=== PATIENT | female | born 1960 | race Caucasian/White ===

== ENCOUNTER 2020-01-20 10:15 | Outpatient (REF) | payer MEDICARE, MEDICAID, SELFPAY ==
--- NOTE | 2020-01-20 10:21 | US_ITS ---
EXAMINATION: US THYROID CLINICAL INFORMATION: Nontoxic multinodular goiter. COMPARISON: Ultrasound soft tissue head/neck thyroid dated 06/09/2018 and 05/20/2017. TECHNIQUE: Linear transducer cox-scale and color Doppler examination with attention to the region of the thyroid. FINDINGS: SIZE: Measurements of the thyroid lobes and nodules are given in sagittal, anteroposterior and transverse dimensions respectively. Right Thyroid Lobe: 5.0 x 1.9 x 1.5 cm, volume 7.4 mL. Previously 4.8 x 1.6 x 1.7 cm, volume 6.8 mL. Parenchyma: The gland echotexture is homogeneous. Thyroid vascularity is normal. Left Thyroid Lobe: 4.5 x 1.4 x 1.8 cm, volume 5.9 mL. Previously 4.7 x 1.5 x 1.8 cm, volume 6.6 mL. Parenchyma: The gland echotexture is homogeneous. Thyroid vascularity is normal. Isthmus: 0.3 cm in maximum AP dimension. Previously 0.3 cm. RIGHT THYROID LOBE: There are 4 nodules seen. 1. Location: Middle. Size: 1.2 x 0.9 x 1.2 cm. Previous: 1.2 x 0.8 x 1.1 cm. Nodule characteristics: Hypoechoic, smoothly marginated with intranodular flow.. 2. Location: Middle. Size: 0.6 x 0.5 x 0.6 cm. Previous: 0.8 x 0.4 x 0.7 cm. Nodule characteristics: Hypoechoic, smoothly marginated with intranodular flow. 3. Location: Middle. Size: 0.5 x 0.4 x 0.3 cm. Previous: None. Nodule characteristics: Hypoechoic, smoothly marginated with no intranodular flow. 4. Location: Inferior. Size: 0.5 x 0.4 x 0.4 cm. Previous: 1.0 x 0.5 x 0.7 cm. Nodule characteristics: Hypoechoic, smoothly marginated with no intranodular flow. ISTHMUS: No nodules. LEFT THYROID LOBE: There are 4 nodules seen. 1. Location: Superior. Size: 0.6 x 0.5 x 0.5 cm. Previous: 0.6 x 0.4 x 0.4 cm. Nodule characteristics: Hypoechoic, smoothly marginated with no intranodular flow. 2. Location: Middle. Size: 0.7 x 0.5 x 0.5 cm. Previous: None. Nodule characteristics: Hypoechoic, smoothly marginated with intranodular flow. 3. Location: Middle. Size: 0.6 x 0.3 x 0.4 cm. Previous: 0.6 x 0.4 x 0.6 cm. Nodule characteristics: Hypoechoic, smoothly marginated with no intranodular flow. 4. Location: Inferior. Size: 0.5 x 0.3 x 0.4 cm. Previous: 0.4 x 0.3 x 0.4 cm. Nodule characteristics: Hypoechoic, smoothly marginated with no intranodular flow. NODES: No lymphadenopathy is seen in the tissue surrounding the thyroid gland. US/US thyroid IMPRESSION: Multiple bilateral thyroid nodules. None of these nodules appear suspicious. No change in the size of the nodules. Continued ultrasound follow-up in 1 year is recommended
== END 2020-01-20 10:16 | disposition home or self-care (01) ==
LOC: HO.US 10:15
PROVIDERS: PCP Internal Medicine; Visit Provider Internal Medicine
DX: E04.2 Nontoxic multinodular goiter (principal)
CPT/HCPCS: 76536

== ENCOUNTER 2020-02-15 07:34 | Outpatient (REF) | payer MEDICARE, MEDICAID, SELFPAY ==
[2020-02-15 11:44] LABS: Blood Urea Nitrogen 18 mg/dL (9-16); Estimated Glomerular Filt Rate > 60
[2020-02-15 11:51] LABS: Cholesterol 235 mg/dL; HDL Cholesterol 44 mg/dL; LDL Cholesterol Calculated 168 mg/dl; Triglycerides 118 mg/dL
[2020-02-15 12:00] LABS: TSH reflex Free T4 1.74 mIU/mL (0.32-4.0)
== END 2020-02-15 07:35 | disposition home or self-care (01) ==
LOC: HO.HMGCLDS 07:34
PROVIDERS: PCP Internal Medicine; Visit Provider Urology
DX: E04.2 Nontoxic multinodular goiter (principal); E78.5 Hyperlipidemia, unspecified; J44.9 Chronic obstructive pulmonary disease, unspecified; Z00.00 Encounter for general adult medical examination without abnormal findings; N28.1 Cyst of kidney, acquired
CPT/HCPCS: 36415; 80061; 82565; 84443; 84520

== ENCOUNTER 2020-02-18 09:43 | Outpatient (REF) | payer MEDICARE, MEDICAID, SELFPAY ==
--- NOTE | 2020-02-18 09:46 | CT_ITS ---
EXAMINATION: CT ABDOMEN WITHOUT AND WITH CONTRAST CLINICAL INFORMATION: Cyst of the kidney COMPARISON: None TECHNIQUE: Contiguous axial thin section helical images of the abdomen were performed before and after the administration of oral contrast and 85 mL of Omnipaque 350 intravenous contrast. The data set was reformatted in the coronal and sagittal planes and reviewed on an independent workstation. This CT examination was performed using dose optimization techniques as appropriate, variously including the following: *Automated exposure control *Adjustment of mA and/or kV according to patient size (this includes techniques or standardized protocols for targeted exams where dose is matched to indication/reason for exam; i.e. extremities or head) *Use of iterative reconstruction technique DLP: 278 mGy-cm FINDINGS: LUNG BASES: Lung bases are expanded and clear. Heart size appears normal. There are bilateral breast prosthesis present. LIVER, GALLBLADDER, AND BILIARY TREE: The liver is normal size, shape and density. No focal lesion or intrahepatic ductal dilatation seen. PANCREAS: The pancreas is homogeneous in density without enlargement. The peripancreatic fat borders are preserved. SPLEEN: The spleen is normal size measuring 9.91 cm in length. ADRENAL GLANDS AND KIDNEYS: Bilateral adrenal glands are symmetrical and normal. Both kidneys are normal size, shape and position. There is a nonenhancing 2.2 cm cyst midpole left kidney. No radiopaque renal calculi or hydronephrosis seen. BOWEL LOOPS: There is scattered stool and gas seen throughout the colon without any significant distention. Small bowel loops are normal caliber. The appendix is normal. LYMPH NODES: Normal. VASCULAR: There is atherosclerotic calcification of abdominal aorta and common iliac vessels. No aneurysmal dilatation seen. BONES: Unremarkable. CT/CT abdomen wo/w con IMPRESSION: Benign simple cyst midpole left kidney. No radiopaque renal calculi or hydronephrosis. Rest of the CT abdomen is unremarkable.
[2020-02-18] MEDS: iohexoL 350 MG/ML 100 ML INFUS..BTL IV (10:27)
== END 2020-02-18 09:44 | disposition home or self-care (01) ==
LOC: HO.CT 09:43
PROVIDERS: PCP Internal Medicine; Visit Provider Urology
DX: N28.1 Cyst of kidney, acquired (principal)
CPT/HCPCS: 74170; Q9967

== ENCOUNTER 2020-03-21 07:41 | Outpatient (REF) | payer MEDICARE, MEDICAID, SELFPAY ==
[2020-03-21 11:26] LABS: Hematocrit 49.2 % (37-47); Hemoglobin 15.3 g/dl (12.0-16.0); Mean Corpuscular HGB Conc 31.1 g/dl (31.0-35.0); Mean Corpuscular Hemoglobin 30.4 pg (27.0-33.0); Mean Corpuscular Volume 97.6 fL (80-98); Mean Platelet Volume 10.4 fL (9.4-12.3); Platelet Count 322 X10*3/uL (160-400); Red Blood Count 5.04 X10*6/uL (4.20-5.50); Red Cell Distribution Width 13.2 % (11.0-16.0); White Blood Count 8.7 X10*3/uL (4.8-10.8)
[2020-03-21 12:10] LABS: Alanine Aminotransferase 19 U/L (0-31); Albumin Level 4.2 g/dL (3.5-5.0); Alkaline Phosphatase 112 U/L (39-117); Anion Gap 14 (12-20); Aspartate Amino Transferase 17 U/L (5-31); Bilirubin Total 0.4 mg/dL (0.0-1.0); Blood Urea Nitrogen 22 mg/dL (9-16); Carbon Dioxide 27 mmol/L (22-29); Chloride 106 mmol/L (96-108); Cholesterol 195 mg/dL; Estimated Glomerular Filt Rate 54; Glucose Fasting 183 mg/dL (60-99); HDL Cholesterol 39 mg/dL; Iron 67 mcg/dL (30-160); LDL Cholesterol Calculated 131 mg/dl; Percent Iron Saturation 22 % (15-50); Potassium 4.8 mmol/L (3.3-5.1); Sodium 142 mmol/L (135-145); Total Iron Binding Capacity 299 mcg/dL (228-428); Total Protein 6.9 g/dL (6.5-8.0); Triglycerides 128 mg/dL; Unsaturated Iron Binding 232 ug/dL
== END 2020-03-21 07:42 | disposition home or self-care (01) ==
LOC: HO.HMGCLDS 07:41
PROVIDERS: PCP Internal Medicine; Visit Provider Internal Medicine
DX: E78.5 Hyperlipidemia, unspecified (principal); J44.9 Chronic obstructive pulmonary disease, unspecified; R42 Dizziness and giddiness
CPT/HCPCS: 36415; 80053; 80061; 83540; 85027

== ENCOUNTER 2020-03-24 06:04 | Outpatient (REF) | payer MEDICARE, MEDICAID, SELFPAY ==
[2020-03-24 11:37] LABS: Estimated Average Glucose 117 mg/dL; Hemoglobin A1c % 5.7 %
[2020-03-24 11:55] LABS: Anion Gap 17 (12-20); Blood Urea Nitrogen 17 mg/dL (9-16); Calcium 9.3 mg/dL (8.4-10.2); Carbon Dioxide 24 mmol/L (22-29); Chloride 108 mmol/L (96-108); Estimated Glomerular Filt Rate > 60; Glucose Fasting 111 mg/dL (60-99); Potassium 4.7 mmol/L (3.3-5.1); Sodium 144 mmol/L (135-145)
== END 2020-03-24 06:05 | disposition home or self-care (01) ==
LOC: HO.HMGCLDS 06:04
PROVIDERS: PCP Internal Medicine; Visit Provider Internal Medicine
DX: R73.9 Hyperglycemia, unspecified (principal)
CPT/HCPCS: 36415; 80048; 83036

== ENCOUNTER 2020-05-19 07:15 | Outpatient (REF) | payer MEDICARE, MEDICAID, SELFPAY ==
--- NOTE | ~2020-05-19 | CT_ITS ---
EXAMINATION: CT CHEST SCREENING CLINICAL INFORMATION: Nicotine dependence, cigarettes. COMPARISON: CT chest 04/07/2019 TECHNIQUE: Multidetector volumetric CT imaging of the chest is performed without contrast using low dose technique. Additional 2D coronal and sagittal reformatted images and axial 3D maximum intensity projection (MIP) images are generated on the CT workstation. This CT examination was performed using dose optimization techniques as appropriate, variously including the following: *Automated exposure control *Adjustment of mA and/or kV according to patient size (this includes techniques or standardized protocols for targeted exams where dose is matched to indication/reason for exam; i.e. extremities or head) *Use of iterative reconstruction technique DLP: 44 mGy-cm FINDINGS: LUNGS: Diffuse emphysematous changes of both lungs with minimal apical parenchymal scarring and pleural thickening. There is small left apical 2.1 cm cyst. Again visualized is a small 1 to 2 minute calcified and noncalcified bilateral lung nodules, stable. No acute pneumonic consolidation seen. MEDIASTINUM: The heart size and great vessels are normal caliber. The thyroid lobes are symmetrical and normal. The central trachea and the bronchi are widely patent. No abnormal size mediastinal or hilar lymph nodes seen. There is no pleural effusion seen. PLEURA AND CHEST WALL: There is no pleural effusion. No pleural mass or thickening. There are bilateral breast prosthesis. AXILLA: No lymphadenopathy. UPPER ABDOMEN: Visualized liver, spleen, pancreas and bilateral adrenal glands are unremarkable. OSSEOUS STRUCTURES: Mild ventral spondylosis dorsal spine. CT/CT lung screening IMPRESSION: Stable bilateral calcified and noncalcified pulmonary nodules in the range of 1-2 mm. No new nodules seen to ASSESSMENT: Lung-RADS category 2: Benign RECOMMENDATION: Low-dose annual CT chest.
== END 2020-05-19 07:16 | disposition home or self-care (01) ==
LOC: HO.CT 07:15
PROVIDERS: PCP Internal Medicine; Visit Provider Surgery
DX: Z12.2 Encounter for screening for malignant neoplasm of respiratory organs (principal); F17.210 Nicotine dependence, cigarettes, uncomplicated
CPT/HCPCS: 71271

== ENCOUNTER 2020-07-21 06:03 | Outpatient (REF) | payer MEDICARE, MEDICAID, SELFPAY ==
[2020-07-21 11:28] LABS: Glucose Urine UA NEG (NEG); Leukocyte Esterase Urine NEG (NEG); Nitrite Urine NEG (NEG); PH 5.5 (5.0-8.0); Urine Blood NEG (NEG); Urine Ketones NEG (NEG); Urine Protein NEG (NEG-TRACE)
[2020-07-21 11:30] LABS: Appearance Urine CLEAR; Color Urine YELLOW
[2020-07-21 11:45] LABS: RBC Urine 0-2 /HPF (0); Squamous Epithelial Cell Urine 1+ /LPF; WBC Urine 0-2 /HPF (0-4)
[2020-07-21 12:15] LABS: TSH reflex Free T4 1.36 uIU/mL (0.32-4.0); Vitamin D 25-OH Total 21.9 ng/mL (>30)
[2020-07-21 12:21] LABS: Estimated Average Glucose 123 mg/dL; Hemoglobin A1c % 5.9 %
[2020-07-21 12:32] LABS: Alanine Aminotransferase 14 U/L (0-31); Albumin Level 4.1 g/dL (3.5-5.0); Alkaline Phosphatase 114 U/L (39-117); Anion Gap 13 (12-20); Aspartate Amino Transferase 17 U/L (5-31); Bilirubin Total 0.5 mg/dL (0.0-1.0); Blood Urea Nitrogen 16 mg/dL (9-16); Calcium 9.1 mg/dL (8.4-10.2); Carbon Dioxide 26 mmol/L (22-29); Chloride 108 mmol/L (96-108); Cholesterol 221 mg/dL; Estimated Glomerular Filt Rate > 60; Glucose Fasting 108 mg/dL (60-99); HDL Cholesterol 39 mg/dL; LDL Cholesterol Calculated 162 mg/dl; Potassium 5.1 mmol/L (3.3-5.1); Sodium 142 mmol/L (135-145); Total Protein 6.5 g/dL (6.5-8.0); Triglycerides 103 mg/dL
== END 2020-07-21 06:04 | disposition home or self-care (01) ==
LOC: HO.HMGCLDS 06:03
PROVIDERS: PCP Internal Medicine; Visit Provider Internal Medicine
DX: Z00.00 Encounter for general adult medical examination without abnormal findings (principal); E78.5 Hyperlipidemia, unspecified; J44.9 Chronic obstructive pulmonary disease, unspecified; R73.9 Hyperglycemia, unspecified; R91.8 Other nonspecific abnormal finding of lung field
CPT/HCPCS: 36415; 80053; 80061; 81001; 82306; 83036; 84443

== ENCOUNTER 2020-08-10 07:02 | Outpatient (REF) | payer MEDICARE, MEDICAID, SELFPAY ==
--- NOTE | ~2020-08-10 | XR_ITS ---
EXAMINATION: XR HIP, LEFT CLINICAL INFORMATION: Left hip pain. COMPARISON: None TECHNIQUE: Two views of the left hip. FINDINGS: Minimal bilateral hip degenerative joint changes are seen in the superior aspects of the joint spaces. There is no acute fracture or dislocation. The bony pelvis is intact. The soft tissues are unremarkable. XR/XR hip LT w PEL1V IMPRESSION: Minimal bilateral hip degenerative joint changes suggesting osteoarthritis.
== END 2020-08-10 07:03 | disposition home or self-care (01) ==
LOC: HO.XRAY 07:02
PROVIDERS: PCP Internal Medicine; Visit Provider Physician Assistant
DX: M70.62 Trochanteric bursitis, left hip (principal)
CPT/HCPCS: 20610; 73502; 99202; J1040

== ENCOUNTER 2020-09-22 06:50 | Outpatient (REF) | payer MEDICARE, MEDICAID, SELFPAY ==
[2020-09-22 12:11] LABS: Alanine Aminotransferase 16 U/L (0-31); Albumin Level 4.2 g/dL (3.5-5.0); Alkaline Phosphatase 105 U/L (39-117); Anion Gap 12 (12-20); Aspartate Amino Transferase 15 U/L (5-31); Bilirubin Total 0.3 mg/dL (0.0-1.0); Blood Urea Nitrogen 14 mg/dL (9-16); Calcium 9.9 mg/dL (8.4-10.2); Carbon Dioxide 28 mmol/L (22-29); Chloride 108 mmol/L (96-108); Cholesterol 219 mg/dL; Estimated Glomerular Filt Rate 54; Glucose Fasting 121 mg/dL (60-99); HDL Cholesterol 37 mg/dL; LDL Cholesterol Calculated 158 mg/dl; Potassium 5.6 mmol/L (3.3-5.1); Sodium 142 mmol/L (135-145); Total Protein 6.8 g/dL (6.5-8.0); Triglycerides 123 mg/dL
== END 2020-09-22 06:51 | disposition home or self-care (01) ==
LOC: HO.HMGCLDS 06:50
PROVIDERS: PCP Internal Medicine; Visit Provider Internal Medicine
DX: E78.5 Hyperlipidemia, unspecified (principal); R73.9 Hyperglycemia, unspecified
CPT/HCPCS: 36415; 80053; 80061

== ENCOUNTER 2020-09-29 06:22 | Outpatient (REF) | payer MEDICARE, MEDICAID, SELFPAY ==
[2020-09-29 12:21] LABS: Anion Gap 15 (12-20); Blood Urea Nitrogen 20 mg/dL (9-16); Calcium 9.8 mg/dL (8.4-10.2); Carbon Dioxide 25 mmol/L (22-29); Chloride 106 mmol/L (96-108); Estimated Glomerular Filt Rate 55; Glucose Random 118 mg/dL (60-115); Potassium 5.2 mmol/L (3.3-5.1); Sodium 141 mmol/L (135-145)
== END 2020-09-29 06:23 | disposition home or self-care (01) ==
LOC: HO.HMGCLDS 06:22
PROVIDERS: PCP Internal Medicine; Visit Provider Internal Medicine
DX: E87.5 Hyperkalemia (principal)
CPT/HCPCS: 36415; 80048

== ENCOUNTER 2021-01-10 06:56 | Outpatient (REF) | payer MEDICARE, MEDICAID, SELFPAY ==
[2021-01-10 11:23] LABS: Hematocrit 50.6 % (37.0-47.0); Mean Corpuscular HGB Conc 31.6 g/dl (31.0-35.0); Mean Corpuscular Hemoglobin 30.1 pg (27.0-33.0); Mean Corpuscular Volume 95.1 fL (80.0-98.0); Mean Platelet Volume 10.4 fL (9.4-12.3); Platelet Count 357 X10*3/uL (160-400); Red Blood Count 5.32 X10*6/uL (4.20-5.50); White Blood Count 8.3 X10*3/uL (4.8-10.8)
[2021-01-10 11:40] LABS: Estimated Average Glucose 117 mg/dL; Hemoglobin A1c % 5.7 %
[2021-01-10 12:08] LABS: Alanine Aminotransferase 21 U/L (0-31); Albumin Level 4.3 g/dL (3.5-5.0); Alkaline Phosphatase 107 U/L (39-117); Anion Gap 16 (12-20); Aspartate Amino Transferase 17 U/L (5-31); Bilirubin Total 0.4 mg/dL (0.0-1.0); Blood Urea Nitrogen 17 mg/dL (9-16); Calcium 10.1 mg/dL (8.4-10.2); Carbon Dioxide 24 mmol/L (22-29); Chloride 107 mmol/L (96-108); Cholesterol 248 mg/dL; Estimated Glomerular Filt Rate 54; Glucose Fasting 117 mg/dL (60-99); HDL Cholesterol 35 mg/dL; LDL Cholesterol Calculated 189 mg/dl; Potassium 5.8 mmol/L (3.3-5.1); Sodium 141 mmol/L (135-145); Total Protein 6.9 g/dL (6.5-8.0); Triglycerides 123 mg/dL
== END 2021-01-10 06:57 | disposition home or self-care (01) ==
LOC: HO.HMGCLDS 06:56
PROVIDERS: PCP Internal Medicine; Visit Provider Internal Medicine
DX: Z00.00 Encounter for general adult medical examination without abnormal findings (principal); R73.9 Hyperglycemia, unspecified
CPT/HCPCS: 36415; 80053; 80061; 83036; 85027

== ENCOUNTER 2021-01-12 09:08 | Outpatient (REF) | payer MEDICARE, MEDICAID, SELFPAY ==
[2021-01-12 12:17] LABS: Anion Gap 13 (12-20); Blood Urea Nitrogen 16 mg/dL (9-16); Calcium 9.9 mg/dL (8.4-10.2); Carbon Dioxide 26 mmol/L (22-29); Chloride 109 mmol/L (96-108); Estimated Glomerular Filt Rate 52; Glucose Random 127 mg/dL (60-115); Potassium 5.2 mmol/L (3.3-5.1); Sodium 143 mmol/L (135-145)
== END 2021-01-12 09:09 | disposition home or self-care (01) ==
LOC: HO.HMGCLDS 09:08
PROVIDERS: PCP Internal Medicine; Visit Provider Internal Medicine
DX: E87.5 Hyperkalemia (principal)
CPT/HCPCS: 36415; 80048

== ENCOUNTER 2021-01-19 07:58 | Outpatient (REF) | payer MEDICARE, MEDICAID, SELFPAY ==
[2021-01-19 12:15] LABS: Alanine Aminotransferase 17 U/L (0-31); Albumin Level 4.3 g/dL (3.5-5.0); Alkaline Phosphatase 114 U/L (39-117); Anion Gap 14 (12-20); Aspartate Amino Transferase 17 U/L (5-31); Bilirubin Total 0.8 mg/dL (0.0-1.0); Blood Urea Nitrogen 16 mg/dL (9-16); Carbon Dioxide 27 mmol/L (22-29); Chloride 106 mmol/L (96-108); Cholesterol 169 mg/dL; Estimated Glomerular Filt Rate 58; Glucose Fasting 118 mg/dL (60-99); HDL Cholesterol 35 mg/dL; LDL Cholesterol Calculated 115 mg/dl; Sodium 142 mmol/L (135-145); Total Protein 6.9 g/dL (6.5-8.0); Triglycerides 98 mg/dL
== END 2021-01-19 07:59 | disposition home or self-care (01) ==
LOC: HO.HMGCLDS 07:58
PROVIDERS: PCP Internal Medicine; Visit Provider Internal Medicine
DX: E78.5 Hyperlipidemia, unspecified (principal)
CPT/HCPCS: 36415; 80053; 80061

== ENCOUNTER 2021-05-18 09:20 | Outpatient (REF) | payer MEDICARE, MEDICAID, SELFPAY ==
[2021-05-18 12:15] LABS: Estimated Average Glucose 117 mg/dL; Hemoglobin A1c % 5.7 %
[2021-05-18 12:23] LABS: Alanine Aminotransferase 19 U/L (0-31); Albumin Level 4.3 g/dL (3.5-5.0); Alkaline Phosphatase 116 U/L (39-117); Anion Gap 11 (12-20); Aspartate Amino Transferase 16 U/L (5-31); Bilirubin Total 0.5 mg/dL (0.0-1.0); Blood Urea Nitrogen 19 mg/dL (9-16); Calcium 9.7 mg/dL (8.4-10.2); Carbon Dioxide 27 mmol/L (22-29); Chloride 108 mmol/L (96-108); Cholesterol 248 mg/dL; Estimated Glomerular Filt Rate 56; Glucose Fasting 111 mg/dL (60-99); HDL Cholesterol 43 mg/dL; LDL Cholesterol Calculated 185 mg/dl; Potassium 5.1 mmol/L (3.3-5.1); Sodium 141 mmol/L (135-145); Triglycerides 102 mg/dL
[2021-05-18 12:36] LABS: Creatinine Urine 137.07 mg/dL; Microalbum/Creatinine Ratio Ur 29.9 ug/mg cr
== END 2021-05-18 09:21 | disposition home or self-care (01) ==
LOC: HO.HMGCLDS 09:20
PROVIDERS: PCP Internal Medicine; Visit Provider Internal Medicine
DX: J44.9 Chronic obstructive pulmonary disease, unspecified (principal); R73.9 Hyperglycemia, unspecified; E78.5 Hyperlipidemia, unspecified
CPT/HCPCS: 36415; 80053; 80061; 82043; 82306; 83036; 87624; 88142

== ENCOUNTER 2021-05-18 09:42 | Outpatient (REF) | payer MEDICARE, MEDICAID, SELFPAY ==
[2021-05-23 16:32] LABS: HPV mRNA E6/E7 Not Detected (Not Detected)
== END 2021-05-18 09:43 | disposition home or self-care (01) ==
LOC: HO.LAB 09:42
PROVIDERS: Visit Provider Internal Medicine
DX: Z01.419 Encounter for gynecological examination (general) (routine) without abnormal findings (principal); Z11.51 Encounter for screening for human papillomavirus (HPV)
CPT/HCPCS: 87624; 88142

== ENCOUNTER 2021-05-25 08:44 | Outpatient (REF) | payer MEDICARE, MEDICAID, SELFPAY ==
--- NOTE | ~2021-05-25 | CT_ITS ---
EXAMINATION: CT CHEST SCREENING CLINICAL INFORMATION: Current smoker. 45 pack year history. COMPARISON: Previous chest CT most recent May 2020 TECHNIQUE: Multidetector volumetric CT imaging of the chest is performed without contrast using low dose technique. Additional 2D coronal and sagittal reformatted images and axial 3D maximum intensity projection (MIP) images are generated on the CT workstation. This CT examination was performed using dose optimization techniques as appropriate, variously including the following: *Automated exposure control *Adjustment of mA and/or kV according to patient size (this includes techniques or standardized protocols for targeted exams where dose is matched to indication/reason for exam; i.e. extremities or head) *Use of iterative reconstruction technique DLP: 45 mGy-cm FINDINGS: LUNGS: There is evidence of emphysema. There is mild biapical pleural and parenchymal scarring. There is a small area of bronchial wall soft tissue opacification in the right upper lobe that is new for example. Reconstructed image 52 series 9. The small calcified and noncalcified pulmonary nodules are otherwise stable. Largest pulmonary nodule is a 6 mm peripheral or subpleural left lower lobe nodule adjacent to the fissure probably representing a subpleural lymph node. No endobronchial or endotracheal lesion. MEDIASTINUM: Minimal coronary artery calcification. The mediastinum is otherwise normal. PLEURA: There is no pleural effusion. No pleural mass or thickening. AXILLA: No lymphadenopathy. There are bilateral breast implants. No chest wall mass or enlarged axillary lymph nodes. UPPER ABDOMEN: There is a 2 cm low-attenuation lesion in the upper pole of the left kidney probably representing a cyst that is partially visualized. OSSEOUS STRUCTURES: There are mild degenerative changes of the spine. CT/CT lung screening IMPRESSION: Emphysema. New small area of bronchial soft tissue opacification in the right upper lobe. Otherwise small bilateral pulmonary nodules are stable. ASSESSMENT: Lung-RADS category 2: Benign RECOMMENDATION: Annual low-dose chest CT follow-up recommended.
== END 2021-05-25 08:45 | disposition home or self-care (01) ==
LOC: HO.CT 08:44
PROVIDERS: Visit Provider Physician Assistant Medical
DX: Z12.2 Encounter for screening for malignant neoplasm of respiratory organs (principal); F17.210 Nicotine dependence, cigarettes, uncomplicated
CPT/HCPCS: 71271

== ENCOUNTER → 2021-10-19 08:47 | Outpatient (BNVA) | payer MEDICARE, MEDICAID, SELFPAY | PROVIDERS: PCP Internal Medicine; Referring Provider Internal Medicine; Visit Provider Nurse Practitioner | DX: Z01.818 Encounter for other preprocedural examination (principal); D12.6 Benign neoplasm of colon, unspecified; J44.9 Chronic obstructive pulmonary disease, unspecified | CPT/HCPCS: 99202 ==

== ENCOUNTER 2022-01-18 06:46 | Outpatient (REF) | payer MEDICARE, MEDICAID, SELFPAY ==
[2022-01-18 11:44] LABS: Hematocrit 48.4 % (37.0-47.0); Hemoglobin 15.7 g/dl (12.0-16.0); Mean Corpuscular HGB Conc 32.4 g/dl (31.0-35.0); Mean Corpuscular Hemoglobin 31.1 pg (27.0-33.0); Mean Corpuscular Volume 95.8 fL (80.0-98.0); Mean Platelet Volume 10.4 fL (9.4-12.3); Platelet Count 336 X10*3/uL (160-400); Red Blood Count 5.05 X10*6/uL (4.20-5.50); Red Cell Distribution Width 13.4 % (11.0-16.0); White Blood Count 9.2 X10*3/uL (4.8-10.8)
[2022-01-18 12:23] LABS: Creatinine Urine 100.73 mg/dL; Microalbum/Creatinine Ratio Ur 4.9 ug/mg cr
[2022-01-18 12:26] LABS: Estimated Average Glucose 123 mg/dL; Hemoglobin A1c % 5.9 %
[2022-01-18 13:29] LABS: Alanine Aminotransferase 17 U/L (0-31); Albumin Level 4.1 g/dL (3.5-5.0); Alkaline Phosphatase 102 U/L (39-117); Anion Gap 10 (12-20); Aspartate Amino Transferase 16 U/L (5-31); Bilirubin Total 0.6 mg/dL (0.0-1.0); Blood Urea Nitrogen 18 mg/dL (9-16); Calcium 9.4 mg/dL (8.4-10.2); Carbon Dioxide 27 mmol/L (22-29); Chloride 107 mmol/L (96-108); Cholesterol 226 mg/dL; Estimated Glomerular Filt Rate > 60; Glucose Fasting 134 mg/dL (60-99); HDL Cholesterol 35 mg/dL; LDL Cholesterol Calculated 167 mg/dl; Potassium 4.3 mmol/L (3.3-5.1); Sodium 140 mmol/L (135-145); TSH reflex Free T4 1.15 uIU/mL (0.32-4.0); Total Protein 6.4 g/dL (6.5-8.0); Triglycerides 124 mg/dL
== END 2022-01-18 06:47 | disposition home or self-care (01) ==
LOC: HO.HMGCLDS 06:46
PROVIDERS: PCP Internal Medicine; Visit Provider Internal Medicine
DX: E04.2 Nontoxic multinodular goiter (principal); R73.9 Hyperglycemia, unspecified; E78.5 Hyperlipidemia, unspecified; J44.9 Chronic obstructive pulmonary disease, unspecified
CPT/HCPCS: 36415; 80053; 80061; 82043; 83036; 84443; 85027

== ENCOUNTER 2022-02-07 07:51 | Outpatient (REF) | payer MEDICARE, MEDICAID, SELFPAY ==
--- NOTE | ~2022-02-07 | XR_ITS ---
EXAMINATION: XR LUMBOSACRAL SPINE CLINICAL INFORMATION: Low back pain. COMPARISON: None TECHNIQUE: Three views of the lumbosacral spine. FINDINGS: There is normal lumbar lordosis. The vertebral heights, alignment and disc heights are normal. No visible acute fracture, dislocation or subluxation seen. XR/XR lumbar spine 2-3V IMPRESSION: Unremarkable lumbar spine examination.
== END 2022-02-07 07:52 | disposition home or self-care (01) ==
LOC: HO.HMGCX 07:51
PROVIDERS: PCP Internal Medicine; Visit Provider Internal Medicine
DX: M54.50 Low back pain, unspecified (principal)
CPT/HCPCS: 72100

== ENCOUNTER 2022-04-19 06:34 | Outpatient (REF) | payer MEDICARE, MEDICAID, SELFPAY ==
[2022-04-19 12:29] LABS: Alanine Aminotransferase 18 U/L (0-31); Albumin Level 4.1 g/dL (3.5-5.0); Alkaline Phosphatase 104 U/L (39-117); Anion Gap 12 (12-20); Aspartate Amino Transferase 19 U/L (5-31); Bilirubin Total 0.6 mg/dL (0.0-1.0); Blood Urea Nitrogen 14 mg/dL (9-16); Calcium 9.7 mg/dL (8.4-10.2); Carbon Dioxide 29 mmol/L (22-29); Chloride 106 mmol/L (96-108); Cholesterol 187 mg/dL; Estimated Glomerular Filt Rate 59; Glucose Fasting 136 mg/dL (60-99); HDL Cholesterol 39 mg/dL; LDL Cholesterol Calculated 127 mg/dl; Potassium 4.5 mmol/L (3.3-5.1); Sodium 142 mmol/L (135-145); Total Protein 6.4 g/dL (6.5-8.0); Triglycerides 106 mg/dL
[2022-04-19 12:34] LABS: Estimated Average Glucose 120 mg/dL; Hemoglobin A1c % 5.8 %
[2022-04-19 12:46] LABS: TSH reflex Free T4 1.57 uIU/mL (0.32-4.0)
[2022-04-19 13:15] LABS: Creatinine Urine 229.14 mg/dL; Microalbum/Creatinine Ratio Ur 741.4 ug/mg cr
== END 2022-04-19 06:35 | disposition home or self-care (01) ==
LOC: HO.HMGCLDS 06:34
PROVIDERS: PCP Internal Medicine; Visit Provider Internal Medicine
DX: Z00.00 Encounter for general adult medical examination without abnormal findings (principal); E78.5 Hyperlipidemia, unspecified; R73.9 Hyperglycemia, unspecified
CPT/HCPCS: 36415; 80053; 80061; 82043; 83036; 84443

== ENCOUNTER 2022-05-10 10:44 | Day surgery (SDC) | payer MEDICARE, MEDICAID, SELFPAY ==
[2022-05-07 11:08] VITALS: BMI 22.9
--- NOTE | 2022-05-09 12:37 | HO.ANESPROP2 ---
HPI - Anesthesia Eval Consult details Narrative: 61yo F for Colonoscopy PMFSH Active Problems Active Problems: All Active Problems (Updated 04/26/22 @ 09:27 by Callie Miner MD) Lumbar back pain (Acute) Pre-op examination (Acute) Tubular adenoma of colon (Acute) Annual physical exam (Acute) Grief (Acute) Hyperkalemia (Acute) Trochanteric bursitis, right hip (Acute) Depression (Acute) Hip bursitis, left (Acute) Bursitis (Acute) Upper respiratory infection (Acute) Hyperglycemia (Acute) Vertigo (Acute) Hyperlipidemia (Acute) COPD (chronic obstructive pulmonary disease) (Acute) Annual physical exam (Acute) Multiple thyroid nodules (Acute) Lung nodules (Acute) Normal Pap smear (Acute) Past Medical History Medical History Annual physical exam Annual physical exam Breast CA Bursitis COPD (chronic obstructive pulmonary disease) Depression Fibromyalgia Gallbladder polyp Grief Hip bursitis, left Hyperglycemia Hyperkalemia Hyperlipidemia Lung nodules Multiple thyroid nodules Normal Pap smear Osteopenia Vertigo Family History Family History Father HTN (hypertension) Diabetes mellitus Stroke Mother Breast cancer Brother Hyperlipidemia Maternal Aunt Breast cancer Sister Substance use disorder Mental health disorder Brother Pancreas cancer Brother Lung cancer Surgical History Surgical History History of colonoscopy History of mastectomy Social History Social History Housing: Apartment Alcohol intake: unknown Patient Tobacco Use Status: Current everyday Tobacco user Tobacco use type: Cigarette Cigarettes Per Day: 6 Years Smoked: 40 e-Cigarette/Vaping Use: Never Used Date Education Initiated: 05/10/22 Second Hand Smoke Exposure: No Use of substances other than those prescribed or required for medical reasons: No Are you DNR?: No Advance Directives: No Advance Directives Information Provided: Yes service: No Current occupational status: employed Current occupation: lt handed/dentist office Current occupational exposures/hazards: No Cognitive needs: No Hearing needs: No Vision needs: Yes Meds Allergies Allergy/AdvReac Type Severity Reaction Status Date / Time nicotine Allergy Unknown itching Verified 04/26/22 08:42 swelling of skin varenicline [From Chantix] Allergy Unknown increased Verified 04/26/22 08:42 irritability/ depression Exam Exam Date and Time: May 09, 2022 1237 Height,Weight and Vital Signs: Height 5 ft 5 in Weight 62.596 kg Pertinent Lab Results Pertinent Lab Results: Laboratory Tests 01/18/22 04/19/22 06:59 06:38 WBC 9.2 Hgb 15.7 Hct 48.4 H Plt Count 336 Sodium 142 Potassium 4.5 Chloride 106 Carbon Dioxide 29 BUN 14 Creatinine 0.96 Assessment and Plan Assessment Anesthesia Assessment: Chart Reviewed
[2022-05-10 11:01] VITALS: BP 146/64; PULSE 83; RESP 18; TEMP 36.8; O2SAT 100; BMI 22.8
--- NOTE | 2022-05-10 11:09 | MHC.SHP ---
Pre-Procedural Eval Section A Date of Service: 05/10/22 The patient is an INPATIENT: No The History & Physical has been completed within 30 days and I have reviewed it.: No Section B Chief Complaint: screening Details of Present Illness: colon cancer screening, history of colon polyps Relevant Family History (Specify if Yes): Yes Relevant Social History: Tobacco Use Present Medications: see Short Stay Collaborative assessment Medical History: Significant History (COPD High cholesterol Hyperglycemia Vertigo Thyroid nodules History of breast cancer Osteopenia Fibromyalgia syndrome Depression/anxiety) History of Previous Operations: Relevant previous surgery/procedure and date(s) (Double mastectomy Colonoscopy-2017 Rt inguinal hernia repair) Allergies: Allergies Allergy/AdvReac Type Severity Reaction Status Date / Time nicotine Allergy Unknown itching Verified 04/26/22 08:42 swelling of skin varenicline [From Chantix] Allergy Unknown increased Verified 04/26/22 08:42 irritability/ depression Review of Systems Sugical H&P ROS: Negative: Constitution, Cardiovascular, Respiratory and Gastrointestinal Exam Surgical H&P Exam: Normal: Heart, Normal: Lungs, Normal: Extremities and Normal: Abdomen Plan Diagnosis/Plan: Unchanged I have reviewed the history and physical and performed a pertinent physical examination on my patient. No changes have occurred unless specified. Time Spent With Patient Time: Total time managing care of this patient today ____ minutes.
[2022-05-10] MEDS: Lactated Ringers 1,000 ML 100 ML IVCONT (11:31)
--- NOTE | 2022-05-10 12:16 | W.PM.OPN ---
Operative Note Operative Note Date of Service: 05/10/22 Narrative: COLONOSCOPY TILL CECUM WITH BIOPSIES Indication:? Colon cancer screening Endoscopist:? Ross Moe MD Anesthesia Provider:?Dr Farah Anesthesia type:?MAC Consent: Indications for the procedure and potential complications of bleeding, perforation, reaction to medications and missed diagnosis were discussed with the patient and informed consent was obtained. Instrument: Olympus PCF H 190 L variable stiffness pediatric colonoscope Monitoring: Vital signs and clinical assessment, intermittent blood pressure monitoring, continuous EKG monitoring, Pulse oximetry and Carbon Dioxide monitoring were done throughout the procedure. Please see anesthesia flowsheet. Colon withdrawl time was 14 minutes. Procedure: The patient was placed in the left lateral decubitis position and pre-procedure medications were administered. After a digital rectal examination of the ano-rectum, the video colonoscope was inserted into the rectum and advanced through the colon to the cecum. The colonoscope was slowly withdrawn in a retrograde panoramic fashion and the colon mucosa was carefully examined including a retroflexed view of the rectum. Findings and interventions are described below. Procedure Difficulty: Without difficulty - colon was long and tortuous and there was some loop formation. Findings: Terminal Ileum: Not evaluated Cecum: Normal Ascending Colon: A 3-4 mm sessile polyp - removed with a cold biopsy Transverse Colon: Normal Descending Colon: Normal Sigmoid Colon: A 4 - 5 mm sessile polyp - removed with a cold biopsy. Moderate diverticulosis Rectum: Normal Ano-rectum: Moderate internal hemorrhoids Colon preparation: Excellent Impression and Post Procedure Diagnosis: Colonoscopy Findings: Two small polyps removed Moderate diverticulosis seen in the sigmoid colon Moderate hemorrhoids on retroflexed exam. Plan: Await pathology results Patient has an appointment on 05/24/22 in the [facility] with Sophia Edmondson NP. Repeat Colonoscopy interval based on path results - in 5 years if polyps are adenomatous and 10 years if polyps are hyperplastic (adult colonoscope for future colonoscopies). Above findings were reviewed with the patient and colon polyps and diverticulosis handouts were given in the discharge area
[2022-05-10 12:57] VITALS: BP 102/42; PULSE 74; RESP 16; TEMP 36.7; O2SAT 98
[2022-05-10 13:12] VITALS: BP 131/60; PULSE 66; RESP 16; TEMP 36.7; O2SAT 100
== END 2022-05-10 13:37 | disposition home or self-care (01) ==
PROVIDERS: PCP Internal Medicine; Visit Provider Internal Medicine Gastroenterology
PROC: 0DJD8ZZ Inspection of Lower Intestinal Tract, Via Natural or Artificial Opening Endoscopic (ICD-10-PCS; CPT 45378; principal; 2022-05-10 12:00)
DX: Z12.11 Encounter for screening for malignant neoplasm of colon (principal); Z86.010 Personal history of colon polyps; D12.3 Benign neoplasm of transverse colon; K63.5 Polyp of colon; K57.30 Diverticulosis of large intestine without perforation or abscess without bleeding; K64.8 Other hemorrhoids; J44.9 Chronic obstructive pulmonary disease, unspecified; E78.00 Pure hypercholesterolemia, unspecified; R73.9 Hyperglycemia, unspecified; R42 Dizziness and giddiness; E04.2 Nontoxic multinodular goiter; M79.7 Fibromyalgia; M85.80 Other specified disorders of bone density and structure, unspecified site; F41.8 Other specified anxiety disorders; Z79.899 Other long term (current) drug therapy; Z88.8 Allergy status to other drugs, medicaments and biological substances; Z85.3 Personal history of malignant neoplasm of breast; Z90.13 Acquired absence of bilateral breasts and nipples; F17.210 Nicotine dependence, cigarettes, uncomplicated
CPT/HCPCS: 45380; 88305

== ENCOUNTER 2022-06-07 08:21 | Outpatient (REF) | payer MEDICARE, MEDICAID, SELFPAY ==
--- NOTE | ~2022-06-07 | CT_ITS ---
EXAMINATION: CT CHEST SCREENING CLINICAL INFORMATION: Nicotine dependence. COMPARISON: Lung screening 05/25/2021. TECHNIQUE: Multidetector volumetric CT imaging of the chest is performed without contrast using low dose technique. Additional 2D coronal and sagittal reformatted images and axial 3D maximum intensity projection (MIP) images are generated on the CT workstation. This CT examination was performed using dose optimization techniques as appropriate, variously including the following: *Automated exposure control *Adjustment of mA and/or kV according to patient size (this includes techniques or standardized protocols for targeted exams where dose is matched to indication/reason for exam; i.e. extremities or head) *Use of iterative reconstruction technique DLP: 46 mGy-cm FINDINGS: LUNGS: There is mild centrilobular emphysema with no acute pneumonic consolidation. There are a few scattered tiny calcified and noncalcified pulmonary nodules which are stable. There is a 7 mm noncalcified nodule left lower lobe adjacent to major fissure on axial image 276/6. There is minimal bilateral apical scarring and thickening. Mild thickening of peribronchial wall right upper lobe axial image 50/9 is stable. MEDIASTINUM: The thyroid lobes are symmetric and normal. The central trachea and bronchi are widely patent. Heart size and the great vessels are normal caliber. There are small shotty lymph nodes in the mediastinum. No pericardial effusion. CORONARY ARTERY CALCIFICATION: None visualized on this study. PLEURA: There is minimal bilateral apical pleural thickening. No pleural effusion or calcified pleural plaque seen. AXILLA: No abnormal axillary lymph node seen. There are bilateral augmented breasts. UPPER ABDOMEN: Visualized liver, spleen, pancreas and bilateral adrenal glands are unremarkable. A 3 cm simple cyst visualized in midpole left kidney. OSSEOUS STRUCTURES: No aggressive lytic or sclerotic process seen. There is mild ventral spondylosis. CT/CT lung screening IMPRESSION: 1. Stable calcified and noncalcified pulmonary nodules. No new nodules seen. 2. Low-dose annual CT chest. ASSESSMENT: Lung-RADS category 2: Benign RECOMMENDATION: Low-dose annual CT chest
== END 2022-06-07 08:22 | disposition home or self-care (01) ==
LOC: HO.CT 08:21
PROVIDERS: PCP Internal Medicine; Visit Provider Physician Assistant Medical
DX: Z12.2 Encounter for screening for malignant neoplasm of respiratory organs (principal); F17.210 Nicotine dependence, cigarettes, uncomplicated
CPT/HCPCS: 71271

== ENCOUNTER 2023-05-08 11:12 | Outpatient (AMB) | payer OTHER, SELFPAY ==
--- NOTE | 2023-05-08 11:14 | MHC.OFFVIS ---
Intake Vital Signs 05/08/23 11:17 Height 5 ft 6 in Weight 132 lb 11.492 oz BMI 21.4 BP 144/66 H Blood Pressure Location Lt brachial Position Sitting Pulse 90 Intake Visit Reasons: Chronic Constipation Intake Note: Malgorzata returns to in office follow up with c/o abdominal pain. CC: Patient called yesterday requesting an appointment for abdominal pain and chronic constipation. She underwent colonoscopy with Dr. Moe on 04/2022. Patient states she has been having constipation since January, lower back pain, and lower abdominal pain. She reports taking a stool softener with laxative in it but continues having constipation and nausea. [employer] Required: No Accompanied by: Self / Same As Patient Allergies nicotine Allergy (Unknown, Verified 05/08/23 11:21) itching swelling of skin varenicline [From Chantix] Allergy (Unknown, Verified 05/08/23 11:21) increased irritability/ depression HPI Chronic Constipation HPI Details Assessment & Plan (1) Pre-op examination: ?Code(s): Z01.818 - Encounter for other preprocedural examination ?Plan: She tolerated past procedures well. No prior problems with anesthesia or sedation. Her COPD is well controlled and no cardiac problems. She recently lost 2 brothers, one to pancreatic cancer. one to lung cancer. No ID problems She had a TA on her last 2017 scope. (2) Tubular adenoma of colon: ?Comment: 2017 SCOPE REPEAT IN 5 YEARS ?Code(s): D12.6 - Benign neoplasm of colon, unspecified (3) COPD (chronic obstructive pulmonary disease): ?Comment: current smoker 1/2 PPD ?Code(s): J44.9 - Chronic obstructive pulmonary disease, unspecified ? ? ? Medications: New peg 3350-electroly carson 236-22.74-6.74 -5.86 gram (Golyt roxanne) ?? until feca l effluent is luisa r; do not exceed a total volume of 2 ,000 mL 240 mL? PO Q10M 1 day 4,000 mL 0RF Z12.11 - Encounter for screening for malignant neoplas m of colon COLONOSCOPY 05/10/22 Findings: Terminal Ileum: Not evaluated Cecum:? Normal Ascending Colon:? A 3-4 mm sessile polyp -? removed with a cold biopsy Transverse Colon:? Normal Descending Colon:? Normal Sigmoid Colon:? A 4 - 5 mm? sessile polyp -? removed with a cold biopsy.? Moderate diverticulosis Rectum:? Normal Ano-rectum:? Moderate internal hemorrhoids Colon preparation: Excellent ? Impression and Post Procedure Diagnosis: Colonoscopy Findings: Two small polyps removed Moderate diverticulosis seen in the sigmoid colon Moderate hemorrhoids on retroflexed exam. Plan: Await pathology results Patient has an appointment on 05/24/22 in the GI Clinic with? Sophia Edmondson NP. Repeat Colonoscopy interval based on path results - in 5 years if polyps are adenomatous and 10 years if polyps are hyperplastic (adult colonoscope for future colonoscopies). BIOPSY Received: 05/10/22 Diagnosis A.? Colon, ascending, polypectomy:? Scant superficial strip of colonic epithelium with hyperplastic changes. B.? Colon, transverse, polypectomy:? Tubular adenoma; negative for high-grade dysplasia or carcinoma. Laboratory Tests 04/19/22 06:38 Estimated GFR 59 Hemoglobin A1c % 5.8 Total Bilirubin 0.6 AST 19 ALT 18 Alkaline Phosphata se 104 TSH 1.57 TODAY'S VISIT She is agreeable to the 5 year repeat. The procedure was well tolerated. The results were explained and the patient is agreeable to the follow-up interval as stated. Education was provided to tell any 1st degree relatives about their findings to be sure that they are screened by age 45. Educated that they will be put on a recall list when it is time for their repeat scope but should they move out of state or away from the hospital they will need to remember along with their primary to repeat the procedure in a timely fashion to avoid any adverse complications. This is a patient that I have not seen since her pre colonoscopy visit who is here complaining of back pain and a new problem of chronic constipation. Onset some time after her colonoscopy of on and off CIC. She admits I like nuts and she is worried about TICS. Now she pushes and pushes and can't get it out. She drank a bottle of mag citrate, but then the next day she returned to severe CIC. She has been really bad with this since last month. She describes the pills otc and she was using a senna/colace combo. She has pain in her low back worse on the left side of the back over the hip. She was taking an OTC laxative and she had some relief after having more BM's. She describes the feeling as a pressure in the back and when she pushes it is in the area of the supra pubic area. The pain will be as bad as 10/10 at times when she is pushing but settles about 6/10. She has never had a problem like this before, she would have daily formed BM's. She denies any new medications, the only kyvn-nxk-[id number] she took was a probiotic/prebiotic in response to this problem which was not helpful. She has not had any major diet changes and no known sick contacts. I suggest she add a fiber supplement and I am going to give her a temporary supply of Linzess but 1st I want to get an abdominal x-ray so I can make sure it does not appear that she has any sort of small-bowel obstruction. She is agreeable to this. I think we also need to repeat her thyroid studies. I find this extremely puzzling it is possible that the prep upset her colon but I do not know why the problem would persist for such a long period of time. We know that she does not have any severe colon disease because we just did a colonoscopy, of differential diagnosis is extremely broad a potentially could include some sort of spinal problem as well as metabolic problem affecting the colon. She certainly does not have any medication side effects to consider. Return office visit in 3 weeks. [facility] Medical History Nicotine dependence, cigarettes, uncomplicated History of breast cancer (~2001) Grief Depression Hyperglycemia Multiple thyroid nodules Lung nodules Normal Pap smear Gallbladder polyp COPD (chronic obstructive pulmonary disease) Osteopenia (~2007) Fibromyalgia Hyperlipidemia Surgical History History of breast reconstruction S/P thyroid biopsy History of hemorrhoidectomy History of bilateral mastectomy History of colonoscopy Family History Father HTN (hypertension) Diabetes mellitus Stroke Mother Breast cancer Brother Hyperlipidemia Maternal Aunt Breast cancer Sister Substance use disorder Mental health disorder Brother Pancreas cancer Brother Lung cancer Social History Housing: Apartment Alcohol intake: unknown Patient Tobacco Use Status: Current everyday Tobacco user Tobacco use type: Cigarette Cigarettes Per Day: 6 Years Smoked: 40 e-Cigarette/Vaping Use: Never Used Second Hand Smoke Exposure: No service: No Current occupational status: employed Current occupation: lt handed/dentist office Current occupational exposures/hazards: No Cognitive needs: No Hearing needs: No Vision needs: Yes Review of Systems Const Denies fatigue, Denies fever(s), Denies night sweats, Denies poor appetite and Denies weight loss Eyes Details: glasses Reports requires corrective lenses ENT Reports Normal hearing present, Denies dental pain, Denies dysphagia, Denies hearing loss, Denies mouth pain, Denies odynophagia, Denies throat swelling, Denies tongue swelling and Reports other (Dentition adequate) Card Reports no additional complaints Resp Reports no additional complaints GI Details: Reports abdominal pain, Denies melena, Denies bloating, Denies hematochezia, Reports constipation, Denies GI cramping, Denies dysphagia, Denies excessive flatus, Denies early satiety, Denies heartburn, Denies diarrhea, Denies nausea, Denies odynophagia, Denies vomiting and Denies hematemesis Musc Reports back pain Skin/Breast Denies pruritus, Denies lesions, Denies rash and Denies jaundice Neuro Reports Normal hearing present and Denies Abnormal speech present Endo Denies fatigue Aller/Immun Denies throat swelling and Denies tongue swelling Physical Exam Vital Signs: Last Vital Signs Pulse 90 05/08/23 11:17 BP 144/66 H 05/08/23 11:17 BMI result Body Mass Index 21.4 Const General: cooperative, no acute distress, well developed and well groomed Nutritional Appearance: average body habitus and well nourished Orientation/consciousness: oriented to person, oriented to place and oriented to time Limitations: No language barrier HEENT Head: Yes normocephalic and Yes atraumatic Eyes General: appearance normal, both eyes and all related structures Pupils: Equal, round and reactive pupils present Neck Neck: Yes normal visual inspection and Yes no lymphadenopathy Thyroid: Thyroid normal Resp Effort & Inspection: normal respiratory effort and able to speak in complete sentences Auscultation: clear to auscultation bilaterally Cardio Rate: regular rate Rhythm: regular rhythm Heart sounds: Normal, physiologic split S2 sound present Peripheral pulses: radial pulses present and posterior tibial pulses present GI Inspection: No distended and No Abdominal panniculus present Palpation (GI): Soft to palpation, Tenderness to palpation present (GI) (Extremely mild) periumbilically, no guarding, not rigid and No hepatosplenomegaly present Percussion: Yes normal to percussion Auscultation: normal bowel sounds Rectal Exam - Female: deferred General: Yes no CVA tenderness Back/Spine/Pelvis Back: no CVA tenderness Thoracic/Lumbar Spine: thoracic and lumbar spine normal to inspection, No paraspinal muscle tenderness and No lumbar spinal tenderness Sacroiliac joints: bilaterally nontender Skin General skin exam: no rashes or lesions noted, turgor normal, skin not dry, no jaundice, No spider nevi and no striae Rashes: no rashes Nails: normal Neuro General: oriented to person, oriented to place and oriented to time Cranial nerves: Yes Equal, round and reactive pupils present and Yes Normal hearing present Speech: No Abnormal speech present Extrem General: Yes normal to inspection, No clubbing, No cyanosis and No edema Psych Appearance: grossly normal and well kempt Mental Status: mental status grossly normal Speech and movement: Normal speech and movement present Affect: normal affect Attitude: cooperative Thought process: Normal thought process present and not confabulating Thought content: Normal thought content present Insight: Fair insight present (Psych) and Limited insight present (Psych) Judgement: Fair judgement present (Psych) and Limited judgement present (Psych) Results Reviewed Results Reviewed: COLONOSCOPY 05/10/22 Findings: Terminal Ileum: Not evaluated Cecum:? Normal Ascending Colon:? A 3-4 mm sessile polyp -? removed with a cold biopsy Transverse Colon:? Normal Descending Colon:? Normal Sigmoid Colon:? A 4 - 5 mm? sessile polyp -? removed with a cold biopsy.? Moderate diverticulosis Rectum:? Normal Ano-rectum:? Moderate internal hemorrhoids Colon preparation: Excellent ? Impression and Post Procedure Diagnosis: Colonoscopy Findings: Two small polyps removed Moderate diverticulosis seen in the sigmoid colon Moderate hemorrhoids on retroflexed exam. Plan: Await pathology results Patient has an appointment on 05/24/22 in the GI Clinic with? Sophia Edmondson NP. Repeat Colonoscopy interval based on path results - in 5 years if polyps are adenomatous and 10 years if polyps are hyperplastic (adult colonoscope for future colonoscopies). BIOPSY Received: 05/10/22 Diagnosis A.? Colon, ascending, polypectomy:? Scant superficial strip of colonic epithelium with hyperplastic changes. B.? Colon, transverse, polypectomy:? Tubular adenoma; negative for high-grade dysplasia or carcinoma. Laboratory Tests 04/19/22 06:38 Estimated GFR 59 Hemoglobin A1c % 5.8 Total Bilirubin 0.6 AST 19 ALT 18 Alkaline Phosphatase 104 TSH 1.57 Assessment & Plan Assessment & Plan (1) Constipation: Code(s): K59.00 - Constipation, unspecified (2) Abdominal pain: Code(s): R10.9 - Unspecified abdominal pain Plan She is agreeable to the 5 year repeat. The procedure was well tolerated. The results were explained and the patient is agreeable to the follow-up interval as stated. Education was provided to tell any 1st degree relatives about their findings to be sure that they are screened by age 45. Educated that they will be put on a recall list when it is time for their repeat scope but should they move out of state or away from the hospital they will need to remember along with their primary to repeat the procedure in a timely fashion to avoid any adverse complications. This is a patient that I have not seen since her pre colonoscopy visit who is here complaining of back pain and a new problem of chronic constipation. Onset some time after her colonoscopy of on and off CIC. She admits I like nuts and she is worried about TICS. Now she pushes and pushes and can't get it out. She drank a bottle of mag citrate, but then the next day she returned to severe CIC. She has been really bad with this since last month. She describes the pills otc and she was using a senna/colace combo. She has pain in her low back worse on the left side of the back over the hip. She was taking an OTC laxative and she had some relief after having more BM's. She describes the feeling as a pressure in the back and when she pushes it is in the area of the supra pubic area. The pain will be as bad as 10/10 at times when she is pushing but settles about 6/10. She has never had a problem like this before, she would have daily formed BM's. She denies any new medications, the only acia-gqa-fknoxpr she took was a probiotic/prebiotic in response to this problem which was not helpful. She has not had any major diet changes and no known sick contacts. I suggest she add a fiber supplement and I am going to give her a temporary supply of Linzess but 1st I want to get an abdominal x-ray so I can make sure it does not appear that she has any sort of small-bowel obstruction. She is agreeable to this. I think we also need to repeat her thyroid studies. I find this extremely puzzling it is possible that the prep upset her colon but I do not know why the problem would persist for such a long period of time. We know that she does not have any severe colon disease because we just did a colonoscopy, of differential diagnosis is extremely broad a potentially could include some sort of spinal problem as well as metabolic problem affecting the colon. She certainly does not have any medication side effects to consider. Return office visit in 3 weeks. Orders: Orders Complete Blood Count Auto Diff Today K59.00 - Constipation, unspecified, R10.9 - Unspecified abdominal pain XR abdomen w decubitus Today K59.00 - Constipation, unspecified, R10.9 - Unspecified abdominal pain TSH reflex Free T4 Today K59.00 - Constipation, unspecified, R10.9 - Unspecified abdominal pain Medications: New linaclotide (Linzess) Take first thing in the morning with a full glass of water. 145 mcg PO QAM 30 caps 3RF K58.1 - Irritable bowel syndrome with constipation Coding Level of Care Code Est Pt Level 4 (39253) Diagnoses Constipation K59.00 Abdominal pain R10.9
[2023-05-08 11:17] VITALS: BP 144/66; PULSE 90; BMI 21.4
== END 2023-05-08 11:58 | disposition home or self-care (01) ==
PROVIDERS: PCP Internal Medicine; Visit Provider Nurse Practitioner
DX: K59.00 Constipation, unspecified (principal); R10.9 Unspecified abdominal pain
CPT/HCPCS: 99214

== ENCOUNTER 2023-05-08 11:12 | Outpatient (REF) | payer OTHER, SELFPAY ==
--- NOTE | ~2023-05-08 | XR_ITS ---
EXAMINATION: XR ABDOMEN WITH DECUBITUS VIEWS CLINICAL INDICATION: Abdominal pain COMPARISON: None available. TECHNIQUE: AP and supine views of the abdomen FINDINGS: The bowel pattern is nonspecific. Solid visceral outlines poorly seen. No abnormal calcifications identified. Hyperinflated but clear lungs. Thoracolumbar scoliosis. XR/XR abdomen w decubitus IMPRESSION: No radiographic evidence of bowel obstruction.
[2023-05-08 12:15] LABS: MANUAL DIFF FLAG NO
[2023-05-08 12:50] LABS: Basophils Percent Auto 0.3 % (0-2); Eosinophils Percent Auto 0.2 % (0-4); Hematocrit 48.4 % (37.0-47.0); Hemoglobin 15.9 g/dl (12.0-16.0); Imm Gran Abs Auto 0.04 X10*3/uL (0.00-0.03); Imm Gran Pct Auto 0.4 % (0.0-0.4); Lymphocytes Absolute Auto 3.9 X10*3/uL (1.2-4.9); Lymphocytes Percent Auto 36.7 % (20-40); Mean Corpuscular HGB Conc 32.9 g/dl (31.0-35.0); Mean Corpuscular Volume 94.3 fL (80.0-98.0); Mean Platelet Volume 9.8 fL (9.4-12.3); Monocytes Absolute Auto 0.6 X10*3/uL (0.1-1.2); Monocytes Percent Auto 5.6 % (2-11); Neutrophils Absolute Auto 6.1 x10*3/uL (2.0-8.3); Neutrophils Percent Auto 56.8 % (45-73); Platelet Count 371 X10*3/uL (160-400); Red Blood Count 5.13 X10*6/uL (4.20-5.50); Red Cell Distribution Width 13.3 % (11.0-16.0); White Blood Count 10.7 X10*3/uL (4.8-10.8)
== END 2023-05-08 11:13 | disposition home or self-care (01) ==
LOC: HO.LAB 11:12
PROVIDERS: PCP Internal Medicine; Visit Provider Nurse Practitioner
DX: R10.9 Unspecified abdominal pain (principal); K58.1 Irritable bowel syndrome with constipation; K59.09 Other constipation; M54.50 Low back pain, unspecified; Z79.899 Other long term (current) drug therapy
CPT/HCPCS: 36415; 74021; 84443; 85025; 99212

== ENCOUNTER 2023-05-28 12:44 | Outpatient (REF) | payer OTHER, MEDICAID, SELFPAY ==
--- NOTE | ~2023-05-28 | CT_ITS ---
EXAMINATION: CT CHEST SCREENING CLINICAL INFORMATION: Nicotine dependence, cigarettes, uncomplicated. The patient is a current smoker with a 50 pack-year history of smoking. COMPARISON: CT chest 06/07/2022. X-ray chest 09/09/2015. TECHNIQUE: Multidetector volumetric CT imaging of the chest is performed without contrast using low dose technique. Additional 2D coronal and sagittal reformatted images and axial 3D maximum intensity projection (MIP) images are generated on the CT workstation. This CT examination was performed using dose optimization techniques as appropriate, variously including the following: *Automated exposure control *Adjustment of mA and/or kV according to patient size (this includes techniques or standardized protocols for targeted exams where dose is matched to indication/reason for exam; i.e. extremities or head) *Use of iterative reconstruction technique DLP: 56 mGy-cm FINDINGS: LUNGS: Severe emphysematous changes are present throughout the lungs along with mild peribronchial thickening. Again seen is a left lower lobe perifissural 8 x 3 mm presumed lymph node with a triangular/polygonal shape (4:383, compare to prior 6:275). No new or concerning lung nodules are seen. MEDIASTINUM: The mediastinum is normal. CORONARY ARTERY CALCIFICATION: None visualized on this study. PLEURA: There is no pleural effusion. No pleural mass or thickening. AXILLA/CHEST WALL: No lymphadenopathy. Bilateral breast prostheses are present. UPPER ABDOMEN: Unremarkable. OSSEOUS STRUCTURES: Unremarkable. CT/CT lung screening IMPRESSION: Unchanged left lower lobe perifissural lung nodule. No new or suspicious lung nodule to suggest malignancy. Severe emphysema. ASSESSMENT: Lung-RADS category 2: Benign RECOMMENDATION: Routine annual low-dose CT screening in 12 months.
== END 2023-05-28 12:45 | disposition home or self-care (01) ==
LOC: HO.CT 12:44
PROVIDERS: PCP Internal Medicine; Visit Provider Nurse Practitioner Family
DX: Z12.2 Encounter for screening for malignant neoplasm of respiratory organs (principal); F17.210 Nicotine dependence, cigarettes, uncomplicated
CPT/HCPCS: 71271

== ENCOUNTER 2023-06-05 07:45 | Outpatient (AMB) | payer OTHER, MEDICAID, SELFPAY ==
--- NOTE | 2023-06-05 08:02 | MHC.OFFVIS ---
Vital Signs 06/05/23 08:09 Height 5 ft 6 in Weight 132 lb BMI 21.3 BP 138/62 Blood Pressure Location Lt brachial Position Sitting Pulse 76 Intake Visit Reasons: 3 week f/u xray Intake Note: Patient 3 weeks for XRay results Patient denies any GI issues for today. Allergies nicotine Allergy (Unknown, Verified 06/05/23 08:08) itching swelling of skin varenicline [From Chantix] Allergy (Unknown, Verified 06/05/23 08:08) increased irritability/ depression HPI HPI 3 week f/u xray: Details: Assessment & Plan (1) Constipation: Code(s): K59.00 - Constipation, unspecified (2) Abdominal pain: Code(s): R10.9 - Unspecified abdominal pain Plan She is agreeable to the 5 year repeat. The procedure was well tolerated. The results were explained and the patient is agreeable to the follow-up interval as stated. Education was provided to tell any 1st degree relatives about their findings to be sure that they are screened by age 45. Educated that they will be put on a recall list when it is time for their repeat scope but should they move out of state or away from the hospital they will need to remember along with their primary to repeat the procedure in a timely fashion to avoid any adverse complications. This is a patient that I have not seen since her pre colonoscopy visit who is here complaining of back pain and a new problem of chronic constipation. Onset some time after her colonoscopy of on and off CIC. She admits I like nuts and she is worried about TICS. Now she pushes and pushes and can't get it out. She drank a bottle of mag citrate, but then the next day she returned to severe CIC. She has been really bad with this since last month. She describes the pills otc and she was using a senna/colace combo. She has pain in her low back worse on the left side of the back over the hip. She was taking an OTC laxative and she had some relief after having more BM's. She describes the feeling as a pressure in the back and when she pushes it is in the area of the supra pubic area. The pain will be as bad as 10/10 at times when she is pushing but settles about 6/10. She has never had a problem like this before, she would have daily formed BM's. She denies any new medications, the only [id number] she took was a probiotic/prebiotic in response to this problem which was not helpful. She has not had any major diet changes and no known sick contacts. I suggest she add a fiber supplement and I am going to give her a temporary supply of Linzess but 1st I want to get an abdominal x-ray so I can make sure it does not appear that she has any sort of small-bowel obstruction. She is agreeable to this. I think we also need to repeat her thyroid studies. I find this extremely puzzling it is possible that the prep upset her colon but I do not know why the problem would persist for such a long period of time. We know that she does not have any severe colon disease because we just did a colonoscopy, of differential diagnosis is extremely broad a potentially could include some sort of spinal problem as well as metabolic problem affecting the colon. She certainly does not have any medication side effects to consider. Return office visit in 3 weeks. Orders: Orders Complete Blood Count Auto Diff Today K59.00 - Constipation, unspecified, R10.9 - Unspecified abdominal pain XR abdomen w decubitus Today K59.00 - Constipation, unspecified, R10.9 - Unspecified abdominal pain TSH reflex Free T4 Today K59.00 - Constipation, unspecified, R10.9 - Unspecified abdominal pain Medications: New linaclotide (Linzess) Take first thing in the morning with a full glass of water. 145 mcg PO QAM 30 caps 3RF K58.1 - Irritable bowel syndrome with constipation LABS: Laboratory Tests 05/08/23 12:14 WBC 10.7 Hgb 15.9 Hct 48.4 H MCV 94.3 MCH 31.0 Plt Count 371 TSH 1.20 X-RAY OF THE ABDOMEN 05/09/23 FINDINGS: The bowel pattern is nonspecific. Solid visceral outlines poorly seen. No abnormal calcifications identified. Hyperinflated but clear lungs. Thoracolumbar scoliosis. XR/XR abdomen w decubitus IMPRESSION: No radiographic evidence of bowel obstruction. TODAY'S VISIT She has been taking her fiber ?almzv-yx-bls? supplement which may be a probiotic prebiotic and fiber supplement twice a day as directed. She finds that the Linzess at 145 micro g dose is moving her bowels well with mostly formed normal stools and only very occasional diarrhea after a formed stool. She feels happy with this and this has completely resolved the back pain she was contending with. She had some left lower quadrant pain initially when she started it, likely related to the stool burden, but this resolved later in the course. Return office visit in 6 months [facility] Medical History Nicotine dependence, cigarettes, uncomplicated History of breast cancer (~2001) Grief Depression Hyperglycemia Multiple thyroid nodules Lung nodules Normal Pap smear Gallbladder polyp COPD (chronic obstructive pulmonary disease) Osteopenia (~2007) Fibromyalgia Hyperlipidemia Surgical History History of breast reconstruction S/P thyroid biopsy History of hemorrhoidectomy History of bilateral mastectomy History of colonoscopy Family History Father HTN (hypertension) Diabetes mellitus Stroke Mother Breast cancer Brother Hyperlipidemia Maternal Aunt Breast cancer Sister Substance use disorder Mental health disorder Brother Pancreas cancer Brother Lung cancer Social History Housing: Apartment Alcohol intake: unknown Patient Tobacco Use Status: Current everyday Tobacco user Tobacco use type: Cigarette Cigarettes Per Day: 6 Years Smoked: 40 e-Cigarette/Vaping Use: Never Used Second Hand Smoke Exposure: No service: No Current occupational status: employed Current occupation: lt handed/dentist office Current occupational exposures/hazards: No Cognitive needs: No Hearing needs: No Vision needs: Yes Review of Systems Const Denies fatigue, Denies fever(s), Denies night sweats, Denies poor appetite and Denies weight loss ENT Reports Normal hearing present, Denies dental pain, Denies dysphagia, Denies hearing loss, Denies mouth pain, Denies odynophagia, Denies throat swelling, Denies tongue swelling and Reports other (Dentition adequate) Card Reports no additional complaints Resp Reports no additional complaints GI Details: Denies abdominal pain, Denies melena, Denies bloating, Denies hematochezia, Reports constipation, Denies GI cramping, Denies dysphagia, Denies excessive flatus, Denies early satiety, Denies heartburn, Denies diarrhea, Denies nausea, Denies odynophagia, Denies vomiting and Denies hematemesis Skin/Breast Denies pruritus, Denies lesions, Denies rash and Denies jaundice Neuro Reports Normal hearing present and Denies Abnormal speech present Endo Denies fatigue Aller/Immun Denies throat swelling and Denies tongue swelling Physical Exam Vital Signs: Last Vital Signs Pulse 76 06/05/23 08:09 BP 138/62 06/05/23 08:09 BMI result Body Mass Index 21.3 Const General: cooperative, no acute distress, well developed and well groomed Nutritional Appearance: average body habitus and well nourished Orientation/consciousness: oriented to person, oriented to place and oriented to time Limitations: No language barrier HEENT Head: Yes normocephalic and Yes atraumatic Eyes General: appearance normal, both eyes and all related structures Pupils: Equal, round and reactive pupils present Neck Neck: Yes normal visual inspection and Yes no lymphadenopathy Thyroid: Thyroid normal Resp Effort & Inspection: normal respiratory effort and able to speak in complete sentences Skin General skin exam: no rashes or lesions noted, turgor normal, skin not dry, no jaundice, No spider nevi and no striae Rashes: no rashes Nails: normal Neuro General: oriented to person, oriented to place and oriented to time Cranial nerves: Yes Equal, round and reactive pupils present and Yes Normal hearing present Speech: No Abnormal speech present Extrem General: Yes normal to inspection, No clubbing, No cyanosis and No edema Psych Appearance: grossly normal and well kempt Mental Status: mental status grossly normal Speech and movement: Normal speech and movement present Affect: normal affect Attitude: cooperative Thought process: Normal thought process present and not confabulating Thought content: Normal thought content present Insight: Good insight present (Psych) Judgement: Good judgement present (Psych) Results Reviewed Results Reviewed: Laboratory Tests 05/08/23 12:14 WBC 10.7 Hgb 15.9 Hct 48.4 H MCV 94.3 MCH 31.0 Plt Count 371 TSH 1.20 X-RAY OF THE ABDOMEN 05/09/23 FINDINGS: The bowel pattern is nonspecific. Solid visceral outlines poorly seen. No abnormal calcifications identified. Hyperinflated but clear lungs. Thoracolumbar scoliosis. XR/XR abdomen w decubitus IMPRESSION: No radiographic evidence of bowel obstruction. Assessment & Plan Assessment & Plan (1) Constipation: Code(s): K59.00 - Constipation, unspecified Category: Medical (2) Abdominal pain: Code(s): R10.9 - Unspecified abdominal pain Category: Medical Plan She has been taking her fiber ?mirrh-ku-ltl? supplement which may be a probiotic prebiotic and fiber supplement twice a day as directed. She finds that the Linzess at 145 micro g dose is moving her bowels well with mostly formed normal stools and only very occasional diarrhea after a formed stool. She feels happy with this and this has completely resolved the back pain she was contending with. She had some left lower quadrant pain initially when she started it, likely related to the stool burden, but this resolved later in the course. Return office visit in 6 months Coding Level of Care Code Est Pt Level 3 (84041) Diagnoses Constipation K59.00 Abdominal pain R10.9
[2023-06-05 08:09] VITALS: BP 138/62; PULSE 76; BMI 21.3
== END 2023-06-05 08:24 | disposition home or self-care (01) ==
PROVIDERS: PCP Internal Medicine; Visit Provider Nurse Practitioner
DX: K59.00 Constipation, unspecified (principal); R10.9 Unspecified abdominal pain
CPT/HCPCS: 99213

== ENCOUNTER → 2023-06-05 07:45 | Outpatient (BNVA) | payer OTHER, SELFPAY | PROVIDERS: PCP Internal Medicine; Visit Provider Nurse Practitioner ==

== ENCOUNTER 2023-12-05 09:17 | Outpatient (AMB) | payer OTHER, MEDICAID, SELFPAY ==
--- NOTE | 2023-12-05 09:19 | MHC.OFFVIS ---
Vital Signs 12/05/23 09:21 Height 5 ft 6 in Weight 127 lb 13.89 oz BMI 20.6 BP 131/60 Blood Pressure Location Lt brachial Position Sitting Pulse 80 Intake Visit Reasons: CIC 6 months follow up Intake Note: Malgorzata presents in the office as a 6 month follow up for CIC. CC: States that she is taking linzess and it is helping her constipation - does not have any concerns today. [employer] Worker Required: No Allergies nicotine Allergy (Unknown, Verified 12/05/23 09:21) itching swelling of skin varenicline [From Chantix] Allergy (Unknown, Verified 12/05/23 09:21) increased irritability/ depression Medication List - Last Reconciled 12/05/23 by WILFREDO Sow inulin (Prebiotic Fiber) grams PO linaclotide (Linzess) 72 mcg PO QAM linaclotide (Linzess) 145 mcg PO QAM sennosides-docusate sodium 8.6-50 mg (Colace 2-In-1) 1 tab-cap PO BEDTIME HPI HPI CIC 6 months follow up : Details: Assessment & Plan (1) Constipation: Code(s): K59.00 - Constipation, unspecified Category: Medical (2) Abdominal pain: Code(s): R10.9 - Unspecified abdominal pain Category: Medical Plan She has been taking her fiber ?zkonk-cx-crw? supplement which may be a probiotic prebiotic and fiber supplement twice a day as directed. She finds that the Linzess at 145 micro g dose is moving her bowels well with mostly formed normal stools and only very occasional diarrhea after a formed stool. She feels happy with this and this has completely resolved the back pain she was contending with. She had some left lower quadrant pain initially when she started it, likely related to the stool burden, but this resolved later in the course. Return office visit in 6 months TODAY'S VISIT This is a patient that I have not seen since her pre colonoscopy visit who is here complaining of back pain and a new problem of chronic constipation. She finds she has to skip Linzess every couple of days because she will have some solid stools mix with water at the 145 micro g dose. This is concerning because it takes about 3 hours to work and she does not want to be running to the bathroom when she is at her job. This is understandable. I am going to give her the 72 micro g dose to experiment with see if we can refine the treatment in make it fit her lifestyle better. If not she is perfectly advised that it is okay to titrate the 145 dose to her needs taking it every other day or taking it on a scheduled that works. Will give her access to the 72 micro g dose and she will call let me know which seems to work better for her. Her weight seems to be down for 5 lb and that is a surprise to her. She is eating well in fact she is quite hungry when she empties her bowels but she has had some extra stress at work. I advised her to simply keep an eye on this since she is feeling well otherwise and should it continue without explanation that it may need a deeper workup. Return office visit in 6 months or sooner if she has any concerns. [facility] Medical History Nicotine dependence, cigarettes, uncomplicated History of breast cancer (~2001) Grief Depression Hyperglycemia Multiple thyroid nodules Lung nodules Normal Pap smear Gallbladder polyp COPD (chronic obstructive pulmonary disease) Osteopenia (~2007) Fibromyalgia Hyperlipidemia Surgical History History of breast reconstruction S/P thyroid biopsy History of hemorrhoidectomy History of bilateral mastectomy History of colonoscopy Family History Father HTN (hypertension) Diabetes mellitus Stroke Mother Breast cancer Brother Hyperlipidemia Maternal Aunt Breast cancer Sister Substance use disorder Mental health disorder Brother Pancreas cancer Brother Lung cancer Social History Housing: Apartment Alcohol intake: unknown Patient Tobacco Use Status: Current everyday Tobacco user Tobacco use type: Cigarette Cigarettes Per Day: 6 Years Smoked: 40 e-Cigarette/Vaping Use: Never Used Second Hand Smoke Exposure: No service: No Current occupational status: employed Current occupation: lt handed/dentist office Current occupational exposures/hazards: No Cognitive needs: No Hearing needs: No Vision needs: Yes Review of Systems Const Denies fatigue, Denies fever(s), Denies night sweats, Denies poor appetite and Reports weight loss Eyes Details: glasses Reports requires corrective lenses ENT Reports Normal hearing present, Denies dental pain, Denies dysphagia, Denies hearing loss, Denies mouth pain, Denies odynophagia, Denies throat swelling, Denies tongue swelling and Reports other (Dentition adequate) Card Reports no additional complaints Resp Reports no additional complaints GI Details: Denies abdominal pain, Denies melena, Denies bloating, Denies hematochezia, Reports constipation, Denies GI cramping, Denies dysphagia, Denies excessive flatus, Denies early satiety, Denies heartburn, Denies diarrhea, Denies nausea, Denies odynophagia, Denies vomiting and Denies hematemesis Skin/Breast Denies pruritus, Denies lesions, Denies rash and Denies jaundice Neuro Reports Normal hearing present and Denies Abnormal speech present Psych Reports anxiety Endo Denies fatigue Aller/Immun Denies throat swelling and Denies tongue swelling Physical Exam Vital Signs: Last Vital Signs Pulse 80 12/05/23 09:21 BP 131/60 12/05/23 09:21 BMI result Body Mass Index 20.6 Const General: cooperative, no acute distress, well developed and well groomed Nutritional Appearance: average body habitus and well nourished Orientation/consciousness: oriented to person, oriented to place and oriented to time Limitations: No language barrier HEENT Head: Yes normocephalic and Yes atraumatic Eyes General: appearance normal, both eyes and all related structures Pupils: Equal, round and reactive pupils present Neck Neck: Yes normal visual inspection and Yes no lymphadenopathy Thyroid: Thyroid normal Resp Effort & Inspection: normal respiratory effort and able to speak in complete sentences Auscultation: clear to auscultation bilaterally Cardio Rate: regular rate Rhythm: regular rhythm Heart sounds: Normal, physiologic split S2 sound present Peripheral pulses: radial pulses present and posterior tibial pulses present GI Inspection: No distended and No Abdominal panniculus present Palpation (GI): Soft to palpation, nontender, no guarding, not rigid and No hepatosplenomegaly present Percussion: Yes normal to percussion Auscultation: normal bowel sounds Rectal Exam - Female: deferred Skin General skin exam: no rashes or lesions noted, turgor normal, skin not dry, no jaundice, No spider nevi and no striae Rashes: no rashes Nails: normal Neuro General: oriented to person, oriented to place and oriented to time Cranial nerves: Yes Equal, round and reactive pupils present and Yes Normal hearing present Speech: No Abnormal speech present Extrem General: Yes normal to inspection, No clubbing, No cyanosis and No edema Psych Appearance: grossly normal and well kempt Mental Status: mental status grossly normal Speech and movement: Normal speech and movement present Affect: normal affect Attitude: cooperative Thought process: Normal thought process present and not confabulating Thought content: Normal thought content present Insight: Good insight present (Psych) Judgement: Good judgement present (Psych) Assessment & Plan Assessment & Plan (1) Constipation: Code(s): K59.00 - Constipation, unspecified Category: Medical (2) Abdominal pain: Code(s): R10.9 - Unspecified abdominal pain Category: Medical Plan This is a patient that I have not seen since her pre colonoscopy visit who is here complaining of back pain and a new problem of chronic constipation. She finds she has to skip Linzess every couple of days because she will have some solid stools mix with water at the 145 micro g dose. This is concerning because it takes about 3 hours to work and she does not want to be running to the bathroom when she is at her job. This is understandable. I am going to give her the 72 micro g dose to experiment with see if we can refine the treatment in make it fit her lifestyle better. If not she is perfectly advised that it is okay to titrate the 145 dose to her needs taking it every other day or taking it on a scheduled that works. Will give her access to the 72 micro g dose and she will call let me know which seems to work better for her. Her weight seems to be down for 5 lb and that is a surprise to her. She is eating well in fact she is quite hungry when she empties her bowels but she has had some extra stress at work. I advised her to simply keep an eye on this since she is feeling well otherwise and should it continue without explanation that it may need a deeper workup. Return office visit in 6 months or sooner if she has any concerns. Medications: New linaclotide (Linzess) 72 mcg PO QAM 30 caps 6RF K59.00 - Constipation, unspecified On Hold linaclotide Hold Comment: Doctor's Order 145 mcg PO QAM 30 caps 3RF K58.1 - Irritable bowel syndrome with constipation linaclotide (Linzess) Hold Comment: Doctor's Order 145 mcg PO QAM 30 caps 3RF K58.1 - Irritable bowel syndrome with constipation Coding Level of Care Code Est Pt Level 3 (73932) Diagnoses Constipation K59.00 Abdominal pain R10.9
[2023-12-05 09:21] VITALS: BP 131/60; PULSE 80; BMI 20.6
== END 2023-12-05 09:43 | disposition home or self-care (01) ==
PROVIDERS: Visit Provider Nurse Practitioner
DX: K59.00 Constipation, unspecified (principal); R10.9 Unspecified abdominal pain
CPT/HCPCS: 99213

== ENCOUNTER → 2023-12-05 09:17 | Outpatient (BNVA) | payer OTHER, MEDICAID, SELFPAY | PROVIDERS: PCP Internal Medicine; Visit Provider Nurse Practitioner ==

== ENCOUNTER 2024-06-02 07:41 | Outpatient (REF) | payer OTHER, MEDICAID, SELFPAY ==
--- NOTE | ~2024-06-02 | CT_ITS ---
CLINICAL HISTORY: F17.210 - Nicotine dependence, cigarettes, uncomplicated CT lung cancer screening (LDCT) Comparison: None Technique: Axial CT images of the chest using low-dose technique. Referring provider counseled the patient on shared decision-making for LDCT screening. Additional counseling was provided on smoking cessation. Effective radiation dose total: DLP 27.1 mGycm, CTDIvol 0.8 mGy. Findings: Lung: Severe centrilobular emphysema. 2 mm pulmonary nodule of the left upper lobe series 4, image 68. 6.7 mm para fissural nodule of the left lower lobe series 4, image 82. Coronary artery calcifications: None Limited upper abdomen: Unremarkable Other: None Impression: LungRADS 3 - Probably benign: Recommend low dose screening Chest CT in 6 months. ##L3# Category 1: Normal; continue annual screening Category 2: Benign appearance or behavior, continue annual screening Category 3: Probably benign, [address] recommended Category 4A: Suspicious, [address] recommended; may consider PET/CT Category 4B: Suspicious, Additional diagnostics and/or tissue sampling recommended Category 4X: Suspicious, Additional diagnostics and/or tissue sampling recommended Category 0: Recalls (incomplete screen due to Incomplete coverage, Noise, Respiratory motion, Expiration, Obscured by acute abnormality) This document has been electronically signed by: Mahin Saldana MD on 06/02/2024 13:09:40
--- OUTSIDE RECORDS SUMMARY | 2024-06-02 07:45 | XMS_ITS | Clinical Summary ---
Demographics Address [address] [phone] Home Phone Mobile Phone Email Address Preferred Language en Marital Status Zoroastrianism Affiliation Unknown Race White Ethnic Group Unknown Author Organization [address] Address [address] [place] [phone] Phone Care Team Providers Care Music Department Chair Name Role Phone Waylon Perez MD Primary Care Pr ovider Allergies No known active allergies Medications Linzess 72 mcg capsuleIndication s:Constipation, unspecified constipation type Take 1 capsule (72 mcg total) by mouth 1 (one) time each day in the morning. 12/05/19 24 Active rosuvastatin (CRESTOR) 10 mg tabletIndications :Mixed hyperlipidemia Take 1 tablet (10 mg total) by mouth 1 (one) time each day. 90 tablet 1 01/07/20 24 2024 Active albuterol HFA (ProAir HFA) 90 mcg/actuation inhalerIndication s:Other emphysema (CMS/HCC V24, CMS/HCC V28) Inhale 2 puffs by mouth every 4 (four) hours if needed for wheezing or shortness of breath. 18 g 1 04/17/19 25 2025 Active umeclidinium (INCRUSE ELLIPTA) 62.5 mcg/actuation inhalationIndicat ions:Other emphysema (CMS/HCC V24, CMS/HCC V28) Inhale 1 puff by mouth 1 (one) time each day. 1 each 6 04/17/19 25 Active cholecalciferol (VITAMIN D-3) 50 mcg (2,000 unit) tabletIndications :Vitamin D deficiency Take 1 tablet (2,000 Units total) by mouth 1 (one) time each day. 90 tablet 3 04/17/19 25 2025 Active fluticasone propionate (FLONASE) 50 mcg/actuation nasal sprayIndications: Acute rhinitis SHAKE GENTLY-USE 1 SPRAY INTO EACH NOSTRIL TWICE A DAY PRIME BEFORE 1ST USE & CLEAN TIP/REPLACE CAP AFTER 16 mL 1 05/20/19 Active umeclidinium (Incruse Ellipta) 62.5 mcg/actuation inhalation Inhale 1 puff by mouth 1 (one) time each day. 3 each 3 05/22/19 25 2025 Active albuterol HFA (PROAIR HFA ; PROVENTIL HFA ; VENTOLIN HFA) 90 mcg/actuation inhaler Inhale 2 puffs by mouth every 6 (six) hours if needed for wheezing or shortness of breath. 3 each 05/22/19 25 2025 Active ergocalciferol (VITAMIN D-2) 1,250 mcg (50,000 unit) capsuleIndication s:Vitamin D deficiency Take 1 capsule (50,000 Units total) by mouth 1 (one) time per week. 12 capsule 03/08/19 25 2024 fluticasone propionate (FLONASE) 50 mcg/actuation nasal sprayIndications: Acute rhinitis Administer 1 spray into each nostril 2 (two) times a day. Shake gently. Before first use, prime pump. After use, clean tip and replace cap. 16 g 04/17/19 25 2024 Discontinued benzonatate (TESSALON) 100 mg capsuleIndication s:Bronchitis Take 1 capsule (100 mg total) by mouth 3 (three) times a day if needed for cough. Do not crush or chew. 42 capsule 04/17/19 25 2024 Active Problems Problem Noted Date Diagnosed Date Vitamin D deficiency 03/08/2024 Assessment & Plan (04/16/2024 11:51 AM EST): Continue vitamin D 50,000 units weekly. She will return for repeat vitamin D When she has completed the supplement. Advised to start vitamin D 2000 units daily indefinitely after completing the high-dose therapy Orders: Vitamin D 25 hydroxy; Future cholecalciferol (VITAMIN D-3) 50 mcg (2,000 unit) tablet; Take 1 tablet (2,000 Units total) by mouth 1 (one) time each day. Constipation 12/26/2023 Assessment & Plan (04/16/2024 11:51 AM EST): Continue follow-up with [facility]. Has an appointment June 04. Continue Linzess as needed Assessment & Plan (12/26/2023 2:38 PM EST): Continue linzess prn and [facility] follow up History of right breast cancer 12/26/2023 Assessment & Plan (04/16/2024 11:51 AM EST): R breast cancer dx in 2001. She had chemotherapy and a double mastectomy. She has breast implants and reports no issues with them. No radiation of adjuvant chemotherapy Assessment & Plan (12/26/2023 2:38 PM EST): S/p Double mastectomy. She does not require any mammograms. Other emphysema (CMS/HCC V24, CMS/HCC V28) 12/25 Assessment & Plan (04/16/2024 11:51 AM EST): Her inhalers are resent Unclear why she couldn't get it from her pharmacy when they were initially sent in December. She will follow-up with pulmonology as scheduled for the initial visit in May Orders: albuterol HFA (ProAir HFA) 90 mcg/actuation inhaler; Inhale 2 puffs by mouth every 4 (four) hours if needed for wheezing or shortness of breath. umeclidinium (INCRUSE ELLIPTA) 62.5 mcg/actuation inhalation; Inhale 1 puff by mouth 1 (one) time each day. Assessment & Plan (12/26/2023 2:38 PM EST): Advised to start the Spiriva daily to prevent recurrent bronchitis. Medication is sent. She will use albuterol as needed. PFTs ordered and she is referred to pulmonology. Orders: tiotropium (Spiriva with HandiHaler) 18 mcg per inhalation capsule; Place 1 capsule (18 mcg total) into inhaler and inhale 1 (one) time each day. albuterol HFA (ProAir HFA) 90 mcg/actuation inhaler; Inhale 2 puffs by mouth every 4 (four) hours if needed for wheezing or shortness of breath. Pulmonary function testing: Spirometry, Spirometry with Bronchodilator Ambulatory referral to Pulmonology; Future Lung nodules 12/26/2023 Assessment & Plan (12/26/2023 2:38 PM EST): She will be due for low-dose CT in May of next year. Orders: CT Lung Screening; Future Mild depression 12/26/2023 Assessment & Plan (12/26/2023 2:38 PM EST): See HPI Mixed hyperlipidemia 12/26/2023 Assessment & Plan (04/16/2024 11:51 AM EST): Much improved Continue rosuvastatin 10 mg daily Assessment & Plan (12/26/2023 2:38 PM EST): See HPI. She would likely require Repatha but will obtain labs first. Orders: Comprehensive metabolic panel; Future Lipid panel with reflex to direct LDL; Future Hemoglobin A1c; Future Tobacco use disorder 12/26/2023 Assessment & Plan (04/16/2024 11:51 AM EST): She will continue to cut back on her smoking on her own. Has low-dose CT scheduled for lung cancer screening at [facility] on June 02 Assessment & Plan (12/26/2023 2:38 PM EST): Smoking cessation counseling provided. She is trying to quit on her own. Previously tried Chantix and nicotine patches. Hx of breast implants, bilateral 12/26/2023 Assessment & Plan (12/26/2023 2:38 PM EST): Reports no issues with the breast implants. Fibromyalgia 12/26/2023 Assessment & Plan (04/16/2024 11:51 AM EST): Continue sparing use of ibuprofen as needed for pain Assessment & Plan (12/26/2023 2:38 PM EST): Continue OTC ibuprofen PRN. She declines long-term medication management Orders: CBC and differential; Future Comprehensive metabolic panel; Future Encounters Date Type Department Care Team Description 05/21/2024 9:00 AM EDT Consult Pulmon[address] [phone] Sabine Chacko MD CARVER (dyspnea on exertion) (Primary Dx); Other emphysema (CMS/HCC V24, CMS/HCC V28); Lung nodules; Chronic obstructive pulmonary disease, unspecified COPD type (CMS/HCC V24, CMS/HCC V28); Family history of lung cancer 05/21/2024 8:00 AM EDT Procedure visit Pul[address] [phone] Giselle Zabala MD Other emphysema (CMS/HCC V24, CMS/HCC V28) (Primary Dx); CARVER (dyspnea on exertion) 05/21/[address] [phone] Sabine Chacko MD Medical records 04/16/2024 8:30 AM EST Office Visit Adult Medicine [address] [phone] Waylon Perez MD Mixed hyperlipidemia (Primary Dx); Other emphysema (CMS/HCC V24, CMS/HCC V28); Chronic idiopathic constipation; History of right breast cancer; Tobacco use disorder; Fibromyalgia; Vitamin D deficiency; Leukocytosis, unspecified type; Bronchitis; Acute rhinitis; Cervical cancer screening; Need for tetanus, diphtheria, and acellular pertussis (Tdap) vaccine 03/08/2024 Telephone Adult Medicine [address] [phone] Waylon Perez MD from Last 3 Months Immunizations Name Administration Dates Next Due Influenza Quadrivalent, 0.5m l, preservative free (Fluarix; FluLaval; Fluzone) ages 6mo and older (Afluria) 3yo and older 01/25/2022,01/03/2020,03/14/2017,2015 Influenza Quadrivalent, with preservative (Fluzone; Afluria) 6mo and older 12/16/2018 Influenza trivalent, MDCK, 0 .5mL, preservative free (Flucelvax) 6mo and older 12/26/2023 Influenza trivalent, with preservative (Fluzone; Afluria) 6mo and older 01/16/2015 Pneumococcal conjugate 20 va lent (Prevnar 20, PCV 20) 2mo and older 01/25/2022 Surgical History Surgery Date Site/Laterality Comments MASTECTOMY 02/10/2001 - 02/09/2002 Bilateral HERNIA REPAIR 02/10/1998 - 02/09/1999 Right femoral hernia ENDOMETRIAL ABLATION unsure if it was an ablation. Medical History Medical History Date Comments COPD (chronic obstructive pulmonary disease) (CM S/HCC V24, CMS/HCC V28) Varicella Emphysema of lung (CMS/HCC V24, CMS/HCC V28) Hypercholesteremia Depression Family History Medical History Relation Name Comments Pancreatic cancer Brother 1 Lung cancer Brother 2 Pneumonia Father tobacco use Father Breast cancer Mother Colon cancer Neg Hx Ovarian cancer Neg Hx Relation Name Status Comments Brother 1 Brother 2 Father Mother Social History Tobacco Use Types Packs/Day Years Used Date Smoking Tobacco: Every Day Cigarettes 0.5 51.3 Started: 1974 Smokeless Tobacco: Current Tobacco Cessation:Ready to Q uit: Not Asked; Counseling Given: Not Answered Alcohol Use Standard Drinks/Week Comments Not Currently 0 (1 standard drink = 0.6 oz pur e alcohol) Housing Instability Answer Date Recorde d Are you worried that in the next 2 months you may not have stable housing? No 04/09/2024 Food Access & Nutrition Answer Date Rec orded Do you have access to a vari ety of food including fruits and vegetables? Yes 04/09/2024 Access to Healthcare Answer Date Record ed Within the last 3 months, ho w many times did you visit the emergency department for your medical care? 0 04/09/2024 Health Literacy Answer Date Recorded How often do you need to hav e someone help you when you read instructions, pamphlets, or other written material from your doctor or pharmacy? Never 04/09/2024 Caregiver: How often do you need to have someone help you when you read instructions, pamphlets, or other written material from your doctor or pharmacy? Not on file 04/09/2024 Financial Risk Answer Date Recorded How hard is it for you to pa y for the very basics like food, housing, medical care, and air conditioning / heating? Not very hard 04/09/2024 Transportation Answer Date Recorded Has the lack of transportati on kept you from meetings, work, or from getting things needed for daily living? No Has the lack of transportati on kept you from medical appointments or from getting medications? No 04/09/2024 Social Isolation Answer Date Recorded How often do you feel lonely or isolated from th ose around you? Never 04/09/2024 Food Risk Answer Date Recorded Within the past 12 months we worried whether our food would run out before we got money to buy more. Never true 04/09/2024 Within the past 12 months th e food we bought just didn't last and we didn't have money to get more. Never true 04/09/2024 Dependent Care Answer Date Recorded Do you need help finding or paying for care for your loved ones. For example, child nutrition assistant or elderly care for an older adult? No 04/09/2024 Education Answer Date Recorded Do you think completing more education or training, like finishing a GED, going to college, or learning a trade, would be helpful for you? No 04/09/2024 Employment and Income Answer Date Recor ded During the last four weeks, have you been actively looking for work? No 04/09/2024 Living Situation Answer Date Recorded What is your living situation? 0 04/09/2024 Comments Unknown Sex and Gender Information Value Date Recorded Sex Assigned at Not on file Legal Sex Female 12:53 PM EDT Gender Identity Not on file Sexual Orientation Not on file Obstetrics History Para Term AB IAB SAB Ectopic Multiple Livin g Live Births 2 1 1 1 1 Date Outcome GA Total Labor Labor/2nd/3rd Weight Sex Type Anes PTL Franca A1 A5 Name Clin SAB Last Filed Vital Signs Vital Sign Reading Time Taken Comments Blood Pressure 132/67 04/16/2024 8:58 AM EST Pulse 86 04/16/2024 8:30 AM EST Temperature 36.4 ??C (97.6 ??F) 04/16/2024 8:30 AM ES T Respiratory Rate 14 04/16/2024 8:30 AM EST Oxygen Saturation 98% 04/16/2024 8:30 AM EST Inhaled Oxygen Concentration - - Weight 56.2 kg (124 lb) 04/16/2024 8:30 AM EST Height 170.2 cm (5' 7 ) 04/16/2024 8:30 AM EST Body Mass Index 19.42 04/16/2024 8:30 AM EST Plan of Treatment Upcoming Encounters Date Type Department Care Team (Late st Contact Info) Description 11/19/2024 8:00 AM EDT Office Visit Adult Medicine [facility] [address] [place] [phone] Waylon Perez MD [address] [place] [id number] 12/03/2024 8:30 AM EDT [facility] [address] [phone] Sabine Chacko MD [address] [phone] Health Maintenance Due Date Last Done Comments DTaP,Tdap,and Td Vaccines (1 - Tdap) 12/07/1978 Cervical Cancer Screening: Pap Smear 12/07/1980 Zoster Vaccines (1 of 2) 12/07/2009 RSV Immunization Adult Patients (1 - Risk 60-74 years 1-dose series) 2019 HIV Screening 11/29/2023 Lung Cancer Screening (Low Dose CT) 11/29/2023 Depression Screening 04/09/2025 04/09/2024 Social Influencers of Health Screening 04/09/2025 04/09/2024 Colorectal Cancer Screening: Colonoscopy 04/23/2027 Cholesterol Screening (Lipid Panel) 04/09/2029 04/09/2024, 12/30/2023 COVID-19 Vaccine Discontinued 08/19/2020, 07/29/2020 Pneumococcal Vaccine: 50+ Years Completed 01/25/2022 Pneumococcal Vaccine: Pediatrics (0 to 5 Years) and At-Risk Patients (6 to 64 Years) Completed 01/25/2022 Influenza Vaccine Completed 12/26/2023, , 01/03/2020, Additional history exists Hepatitis C Screening Completed 12/30/2023 HIB Vaccines Aged Out No longer eligi ble based on patient's age to complete this topic HPV Vaccines Aged Out No longer eligi ble based on patient's age to complete this topic Hepatitis A Vaccines Aged Out No long er eligible based on patient's age to complete this topic Hepatitis B Vaccines Aged Out No long er eligible based on patient's age to complete this topic IPV Vaccines Aged Out No longer eligi ble based on patient's age to complete this topic MMR Vaccines Aged Out No longer eligi ble based on patient's age to complete this topic Meningococcal ACWY Vaccine Aged Out N o longer eligible based on patient's age to complete this topic Meningococcal B Vaccine Aged Out No l onger eligible based on patient's age to complete this topic RSV Immunization Patients Under 20 months Aged Out No longer eligible based on patient's age to complete this topic Varicella Vaccines Aged Out No longer eligible based on patient's age to complete this topic Procedures Procedure Name Priority Date/Time Associated Diagnosis Comments PULMONARY FUNCTION TESTING Routine 05/21/2024 8:40 AM EDT CARVER (dyspnea on exertion) CBC WITH AUTO DIFFERENTIAL Routine 04/09/2024 7:42 AM EST Leukocytosis, unspecified type LIPID PANEL WITH REFLEX TO DIRECT LDL Routine 04/09/2024 7:42 AM EST Mixed hyperlipidemia COMPREHENSIVE METABOLIC PANEL Routine 04/09/2024 7:42 AM EST Mixed hyperlipidemia CBC AND DIFFERENTIAL Routine 04/09/2024 7:42 AM EST Leukocytosis, unspecified type CBC WITH AUTO DIFFERENTIAL Routine 03/05/2024 7:37 AM EST Polycythemia secondary to smoking VITAMIN D 25 HYDROXY Routine 03/05/2024 7:37 AM EST Elevated alkaline phosphatase level HEPATIC FUNCTION PANEL Routine 03/05/2024 7:37 AM EST Mixed hyperlipidemia CREATINE KINASE AND CKMB Routine 03/05/2024 7:37 AM EST Mixed hyperlipidemia CBC AND DIFFERENTIAL Routine 03/05/2024 7:37 AM EST Polycythemia secondary to smoking HEPATITIS C ANTIBODY Routine 12/30/2023 7:40 AM EST Need for hepatitis C screening test from Last 3 Months or Most Recently Relevant to Health Maintenance Results * Pulmonary function testing: Carbon Monoxide Diffusing Capacity, Nitrogen Wash Out, Spirometry with Bronchodilator, Vital Capacity Test (05/21/2024 8:40 AM EDT) Impressions Giselle Zabala MD - 05/21/2024 8:40 AM EDT DATE OF SERVICE: 05/21/24 SPIROMETRY: FEV1 is 90 % predicted and an FVC ??is 103 % predicted. The FEV1/FVC ratio is 87% of normal, no response to bronchodilators noted. LUNG VOLUMES: Total lung capacity (TLC): 119% predicted. Residual volume (RV): 132% predicted RV/TLC ratio is 105% of normal DIFFUSION CAPACITY: DLCO 51% predicted. DlCO/VA 50% of predicted COMPARISONS: INTERPRETATION: This pulmonary function test shows mild obstructive changes with portion decline with diffusion capacity. ??This suggests COPD or parenchymal lung disease. ??Please correlate clinically ??Giselle Zabala MD ?? Sabine Chacko MD PFT ORDERABLES Final Result * Lipid panel with reflex to direct LDL (04/09/2024 7:42 AM EST) Cholesterol 133 0 - 200 mg/dL LAB CHEMISTRY METHOD 04/09/2024 10:[address] [facility] Triglycerides 106 0 - 150 mg/dL LAB CHEMISTRY METHOD 04/09/2024 10:[address] [facility] HDL 42 >=40 mg/dL LAB CHEMISTRY METHOD 04/09/2024 10:[address] [facility] LDL Calculated 70 0 - 100 mg/dL LAB CHEMISTRY METHOD 04/09/2024 10:45 AM [facility] VLDL Cholesterol Kyle 21.2 mg/dL LAB CHEMISTRY METHOD 04/09/2024 10:[address] [facility] Non HDL Chol. (LDL+VLDL) 91 <145 mg/dL LAB CHEMISTRY METHOD 04/09/2024 10:[address] [facility] Chol/HDL Ratio 3.2 0.0 - 4.4 LAB CHEMISTRY METHOD 04/09/2024 10:45 AM [facility] Blood Venous blood specimen / Unknown Venipuncture / Unknown 04/09/2024 7:42 AM EST 04/09/2024 7:42 AM EST Waylon Perez MD LAB BLOOD ORDERA BLES Final Result [facility] [address] [place] [address], [place] [phone] * (ABNORMAL) CBC auto differential (04/09/2024 7:42 AM EST) Only the most recent of2 resultswithin the time period is included. WBC 12.0(H) 4.8 - 10.8 K/mcL LAB HEMETOLOGY METHOD 04/09/2024 10:24 AM [facility] RBC 5.10(H) 3.80 - 4.80 M/[facility] LAB HEMETOLOGY METHOD 04/09/2024 10:24 AM [facility] Hemoglobin 15.4 11.5 - 16.0 g/dL LAB HEMETOLOGY METHOD 04/09/2024 10:24 AM [facility] Hematocrit 49.6(H) 35.0 - 47.0 % LAB HEMETOLOGY METHOD 04/09/2024 10:24 AM [facility] MCV 97.1 79.0 - 98.0 FL LAB HEMETOLOGY METHOD 04/09/2024 10:24 AM [facility] MCH 30.1 27.0 - 32.0 pcg LAB HEMETOLOGY METHOD 04/09/2024 10:24 AM [facility] MCHC 31.0(L) 32.0 - 37.0 g/dL LAB HEMETOLOGY METHOD 04/09/2024 10:24 AM [facility] RDW 12.6 11.0 - 15.0 % LAB HEMETOLOGY METHOD 04/09/2024 10:24 AM [facility] Platelets 428(H) 130 - 400 K/mcL LAB HEMETOLOGY METHOD 04/09/2024 10:24 AM [facility] MPV 10.5 7.0 - 11.0 FL LAB HEMETOLOGY METHOD 04/09/2024 10:24 AM [facility] NRBC 0.0 <1.0 % LAB HEMETOLOGY METHOD 04/09/2024 10:24 AM [facility] NRBC Absolute 0.00 <0.10 K/mcL LAB HEMETOLOGY METHOD 04/09/2024 10:24 AM [facility] Neutrophils Relative 65.0 % LAB HEMETOLOGY METHOD 04/09/2024 10:24 AM [facility] Lymphocytes Relative 26.9 % LAB HEMETOLOGY METHOD 04/09/2024 10:24 AM [facility] Monocytes Relative 6.8 % LAB HEMETOLOGY METHOD 04/09/2024 10:24 AM [facility] Eosinophils Relative 0.7 % LAB HEMETOLOGY METHOD 04/09/2024 10:24 AM [facility] Basophils Relative 0.3 % LAB HEMETOLOGY METHOD 04/09/2024 10:[address] [facility] Immature Granulocytes Relative 0.3 % LAB HEMETOLOGY METHOD 04/09/2024 10:[address] [facility] Neutrophils Absolute 7.80(H) 1.50 - 7.00 K/mcL LAB HEMETOLOGY METHOD 04/09/2024 10:[address] [facility] Lymphocytes Absolute 3.23 1.00 - 5.00 K/mcL LAB HEMETOLOGY METHOD 04/09/2024 10:[address] [facility] Monocytes Absolute 0.82 0.20 - 1.00 K/mcL LAB HEMETOLOGY METHOD 04/09/2024 10:24 AM [facility] Eosinophils Absolute 0.08 0.00 - 0.50 K/mcL LAB HEMETOLOGY METHOD 04/09/2024 10:[address] [facility] Basophils Absolute 0.03 0.00 - 0.20 K/mcL LAB HEMETOLOGY METHOD 04/09/2024 10:[address] [facility] Immature Granulocytes Absolute 0.04(H) 0.00 - 0.03 K/mcL LAB HEMETOLOGY METHOD 04/09/2024 10:24 AM [facility] Blood Venous blood specimen / Unknown Venipuncture / Unknown 04/09/2024 7:42 AM EST 04/09/2024 7:42 AM EST us Waylon Perez MD LAB BLOOD ORDERA BLES Final Result [facility] [address] [place] [address], * (ABNORMAL) Comprehensive metabolic panel (04/09/2024 7:42 AM EST) [facility] Sodium 145 133 - 145 mmol/L LAB CHEMISTRY METHOD 04/09/2024 10:45 AM [facility] Potassium 5.1 3.5 - 5.5 mmol/L LAB CHEMISTRY METHOD 04/09/2024 10:45 AM [facility] Chloride 112(H) 96 - 110 mmol/L LAB CHEMISTRY METHOD 04/09/2024 10:45 AM [facility] CO2 25 21 - 32 mmol/L LAB CHEMISTRY METHOD 04/09/2024 10:45 AM [facility] Anion Gap 8 3 - 11 LAB CHEMISTRY METHOD 04/09/2024 10:45 AM [facility] Glucose 131(H) 70 - 100 mg/dL LAB CHEMISTRY METHOD 04/09/2024 10:45 AM [facility] BUN 15 5 - 25 mg/dL LAB CHEMISTRY METHOD 04/09/2024 10:45 AM [facility] Creatinine 1.01 0.50 - 1.10 mg/dL LAB CHEMISTRY METHOD 04/09/2024 10:45 AM [facility] eGFR 62 >=60 mL/min/1. 73m2 LAB CHEMISTRY METHOD 04/09/2024 10:45 AM [facility] Comment:Calculation based on the??Chronic Kidney Disease Epidemiology Collaboration (CKD-EPI) equation refit??without adjustment for race. BUN/Creatinine Ratio 14.9 LAB CHEMISTRY METHOD 04/09/2024 10:45 AM [facility] Calcium 9.8 8.5 - 10.5 mg/dL LAB CHEMISTRY METHOD 04/09/2024 10:45 AM [facility] AST (SGOT) 22 10 - 42 unit/L LAB CHEMISTRY METHOD 04/09/2024 10:45 AM [facility] ALT (SGPT) 24 10 - 60 unit/L LAB CHEMISTRY METHOD 04/09/2024 10:45 AM [facility] Alkaline Phosphatase 111 42 - 121 unit/L LAB CHEMISTRY METHOD 04/09/2024 10:45 AM [facility] Total Protein 7.3 6.0 - 8.0 g/dL LAB CHEMISTRY METHOD 04/09/2024 10:[address] [facility] Albumin 3.9 3.2 - 5.0 g/dL LAB CHEMISTRY METHOD 04/09/2024 10:[address] [facility] Total Bilirubin 0.7 0.0 - 1.4 mg/dL LAB CHEMISTRY METHOD 04/09/2024 10:[address] [facility] Blood Venous blood specimen / Unknown Venipuncture / Unknown 04/09/2024 7:42 AM EST 04/09/2024 7:42 AM EST Waylon Perez MD LAB BLOOD ORDERA BLES Final Result Performing Organization Address City/[facility]/ZIP Co de Phone Number [facility] [address] [place] [address], [place] [phone] * (ABNORMAL) Vitamin D 25 hydroxy (03/05/2024 7:37 AM EST) Vit D, 25-Hydroxy 15.2(L) 30.0 - 80.0 ng/mL LAB CHEMISTRY METHOD 03/05/2024 10:[address] [facility] Blood Venous blood specimen / Unknown Venipuncture / Unknown 03/05/2024 7:37 AM EST 03/05/2024 7:37 AM EST Waylon Perez MD LAB BLOOD ORDERA BLES Final Result [facility] [address] [place] [address], [place] [phone] * Creatine kinase and CKMB (03/05/2024 7:37 AM EST) Total CK 197 22 - 269 unit/L LAB CHEMISTRY METHOD 03/05/2024 10:[address] [facility] CK-MB 3.0 1.0 - 3.6 ng/mL LAB CHEMISTRY METHOD 03/05/2024 10:[address] [facility] CK-MB Index 0.0 0.0 - 5.0 LAB CHEMISTRY METHOD 03/05/2024 10:38 AM [facility] Blood Venous blood specimen / Unknown Venipuncture / Unknown 03/05/2024 7:37 AM EST 03/05/2024 7:37 AM EST Waylon Perez MD LAB BLOOD ORDERA BLES Final Result [facility] [address] [place] [address], [place] [phone] * (ABNORMAL) Hepatic function panel (03/05/2024 7:37 AM EST) Total Protein 7.2 6.0 - 8.0 g/dL LAB CHEMISTRY METHOD 03/05/2024 10:38 AM [facility] Albumin 4.0 3.2 - 5.0 g/dL LAB CHEMISTRY METHOD 03/05/2024 10:38 AM [facility] Total Bilirubin 0.4 0.0 - 1.4 mg/dL LAB CHEMISTRY METHOD 03/05/2024 10:38 AM [facility] Bilirubin, Direct <0.1 0.0 - 0.3 mg/dL LAB CHEMISTRY METHOD 03/05/2024 10:38 AM [facility] Bilirubin, Indirect LAB CHEMISTRY METHOD 03/05/2024 10:38 AM [facility] Comment:Unable to calculate Indirect Bilirubin. ALT (SGPT) 30 10 - 60 unit/L LAB CHEMISTRY METHOD 03/05/2024 10:38 AM [facility] AST (SGOT) 19 10 - 42 unit/L LAB CHEMISTRY METHOD 03/05/2024 10:[address] [facility] Alkaline Phosphatase 124(H) 42 - 121 unit/L LAB CHEMISTRY METHOD 03/05/2024 10:[address] [facility] Blood Venous blood specimen / Unknown Venipuncture / Unknown 03/05/2024 7:37 AM EST 03/05/2024 7:37 AM EST Waylon Perez MD LAB BLOOD ORDERA BLES Final Result [facility] [address] [place] [address], [place] [phone] * Hepatitis C antibody (12/30/2023 7:40 AM EST) [facility] Signature Hepatitis C Antibody Negative Negative LAB CHEMISTRY METHOD 12/30/2023 11:[address] [facility] Blood Venous blood specimen / Unknown Venipuncture / Unknown 12/30/2023 7:40 AM EST 12/30/2023 7:40 AM EST Waylon Perez MD LAB BLOOD ORDERA BLES Final Result Performing Organization Address City/[facility]/ZIP Co de Phone Number [facility] [address] [place] [address], [place] [phone] from Last 3 Months or Most Recently Relevant to Health Maintenance Insurance [address] [phone] [facility] MEDICAID - [place] Care Teams Music Department Chair Relationship Specialty Start Date End Date Waylon Perez MD [address] [place] [phone] PCP - General Internal Medicine 11/29/23
== END 2024-06-02 07:42 | disposition home or self-care (01) ==
LOC: HO.CT 07:41
PROVIDERS: PCP Internal Medicine; Visit Provider Physician Assistant Medical
DX: Z12.2 Encounter for screening for malignant neoplasm of respiratory organs (principal); F17.210 Nicotine dependence, cigarettes, uncomplicated
CPT/HCPCS: 71271

== ENCOUNTER → 2024-06-02 07:43 | Outpatient (BNV) | payer OTHER, MEDICAID, SELFPAY | PROVIDERS: PCP Internal Medicine; Visit Provider Nuclear Medicine | DX: F17.210 Nicotine dependence, cigarettes, uncomplicated (principal) | CPT/HCPCS: 71271 ==

== ENCOUNTER 2024-06-04 08:41 | Outpatient (AMB) | payer OTHER, MEDICAID, SELFPAY ==
--- OUTSIDE RECORDS SUMMARY | 2024-06-04 08:46 | XMS_ITS | Clinical Summary ---
Demographics Address [birth year] 02/[address] [address] Home Phone Mobile Phone Email Address Preferred Language en Marital Status Catholic Affiliation Unknown Race White Ethnic Group Unknown Author Organization [address] Address [address] [place] [phone] Phone Care Team Providers Care Animal Care Giver Name Role Phone Waylon Perez MD Primary [...] (04/16/2024 11:51 AM EST): Continue follow-up with [facility] [place]. Has an appointment June 04. Continue Linzess as needed Assessment & Plan (12/26/2023 2:38 PM EST): Continue linzess prn and [facility] [place] follow up History of right breast [...] CT scheduled for lung cancer screening at [facility] on June 02 Assessment & Plan [...] Team Description 05/21/2024 9:00 AM EDT Consult Pulmon[address] [phone] Sabine Chacko MD CARVER (dyspnea on exertion) (Primary Dx); Other emphysema (CMS/HCC V24, CMS/HCC V28); Lung nodules; Chronic obstructive pulmonary disease, unspecified COPD type (CMS/HCC V24, CMS/HCC V28); Family history of lung cancer 05/21/2024 8:00 AM EDT Procedure visit Pul[address] [phone] Giselle Zabala MD Other emphysema (CMS/HCC V24, CMS/HCC V28) (Primary Dx); CARVER (dyspnea on exertion) 05/21/[address] [phone] Sabine Chacko MD Medical records 04/16/2024 8:30 AM EST Office Visit Adult Medicine [address] [phone] Waylon Perez MD Mixed hyperlipidemia (Primary Dx); Other emphysema (CMS/HCC V24, CMS/HCC V28); Chronic idiopathic constipation; History of right breast cancer; Tobacco use disorder; Fibromyalgia; Vitamin D deficiency; Leukocytosis, unspecified type; Bronchitis; Acute rhinitis; Cervical cancer screening; Need for tetanus, diphtheria, and acellular pertussis (Tdap) vaccine 03/08/2024 Telephone Adult Medicine [address] [phone] Waylon Perez MD from Last 3 Months [...] care for your loved ones. For example, early childhood coordinator or elderly care for an older adult? [...] 8:00 AM EDT Office Visit Adult Medicine [facility] [address] [place] [phone] Waylon Perez MD [address] [place] [phone] 12/03/2024 8:30 AM EDT [facility] [address] [phone] Sabine Chacko MD [address] [address] Health Maintenance Due Date Last Done Comments [...] 04/09/2024 7:42 AM EST Leukocytosis, unspecified type HEPATITIS C ANTIBODY Routine 12/30/2023 7:40 AM [...] mg/dL LAB CHEMISTRY METHOD 04/09/2024 10:45 AM [facility] Triglycerides 106 0 - 150 mg/dL LAB CHEMISTRY METHOD 04/09/2024 10:45 AM [facility] HDL 42 >=40 mg/dL LAB CHEMISTRY METHOD 04/09/2024 10:45 AM [facility] LDL Calculated 70 0 - 100 mg/dL LAB CHEMISTRY METHOD 04/09/2024 10:45 AM [facility] VLDL Cholesterol Kyle 21.2 mg/dL LAB CHEMISTRY METHOD 04/09/2024 10:45 AM [facility] Non HDL Chol. (LDL+VLDL) 91 <145 mg/dL LAB CHEMISTRY METHOD 04/09/2024 10:45 AM [facility] Chol/HDL Ratio 3.2 0.0 - 4.4 LAB CHEMISTRY METHOD 04/09/2024 10:45 AM EST [facility] Blood Venous blood specimen / Unknown Venipuncture / Unknown 04/09/2024 7:42 AM EST 04/09/2024 7:42 AM EST Waylon Perez MD LAB BLOOD ORDERA BLES Final Result [facility] [address] [place] [address], [place] [phone] * (ABNORMAL) CBC auto differential (04/09/2024 7:42 AM EST) WBC 12.0(H) 4.8 - 10.8 K/mcL LAB HEMETOLOGY METHOD 04/09/2024 10:24 AM [facility] RBC 5.10(H) 3.80 - 4.80 M/[facility] LAB HEMETOLOGY METHOD 04/09/2024 10:24 AM [facility] Hemoglobin 15.4 11.5 - 16.0 g/dL LAB HEMETOLOGY METHOD 04/09/2024 10:24 AM [facility] Hematocrit 49.6(H) 35.0 - 47.0 % LAB HEMETOLOGY METHOD 04/09/2024 10:24 AM [facility] MCV 97.1 79.0 - 98.0 FL LAB HEMETOLOGY METHOD 04/09/2024 10:24 AM [facility] MCH 30.1 27.0 - 32.0 pcg LAB HEMETOLOGY METHOD 04/09/2024 10:24 AM [facility] MCHC 31.0(L) 32.0 - 37.0 g/dL LAB HEMETOLOGY METHOD 04/09/2024 10:24 AM [facility] RDW 12.6 11.0 - 15.0 % LAB HEMETOLOGY METHOD 04/09/2024 10:24 AM [facility] Platelets 428(H) 130 - 400 K/mcL LAB HEMETOLOGY METHOD 04/09/2024 10:24 AM [facility] MPV 10.5 7.0 - 11.0 FL LAB HEMETOLOGY METHOD 04/09/2024 10:24 AM [facility] NRBC 0.0 <1.0 % LAB HEMETOLOGY METHOD 04/09/2024 10:24 AM [facility] NRBC Absolute 0.00 <0.10 K/mcL LAB HEMETOLOGY METHOD 04/09/2024 10:24 AM [facility] Neutrophils Relative 65.0 % LAB HEMETOLOGY METHOD 04/09/2024 10:24 AM [facility] Lymphocytes Relative 26.9 % LAB HEMETOLOGY METHOD 04/09/2024 10:24 AM [facility] Monocytes Relative 6.8 % LAB HEMETOLOGY METHOD 04/09/2024 10:24 AM [facility] Eosinophils Relative 0.7 % LAB HEMETOLOGY METHOD 04/09/2024 10:24 AM [facility] Basophils Relative 0.3 % LAB HEMETOLOGY METHOD 04/09/2024 10:24 AM [facility] Immature Granulocytes Relative 0.3 % LAB HEMETOLOGY METHOD 04/09/2024 10:24 AM [facility] Neutrophils Absolute 7.80(H) 1.50 - 7.00 K/mcL LAB HEMETOLOGY METHOD 04/09/2024 10:24 AM [facility] Lymphocytes Absolute 3.23 1.00 - 5.00 K/mcL LAB HEMETOLOGY METHOD 04/09/2024 10:24 AM [facility] Monocytes Absolute 0.82 0.20 - 1.00 K/mcL LAB HEMETOLOGY METHOD 04/09/2024 10:24 AM EST [facility] Eosinophils Absolute 0.08 0.00 - 0.50 K/[facility] LAB HEMETOLOGY METHOD 04/09/2024 10:24 AM EST [facility] Basophils Absolute 0.03 0.00 - 0.20 K/[facility] LAB HEMETOLOGY METHOD 04/09/2024 10:24 AM EST [facility] Immature Granulocytes Absolute 0.04(H) 0.00 - 0.03 K/[facility] LAB HEMETOLOGY METHOD 04/09/2024 10:24 AM EST [facility] Blood Venous blood specimen / Unknown Venipuncture / Unknown 04/09/2024 7:42 AM EST 04/09/2024 7:42 AM EST Waylon Perez MD LAB BLOOD ORDERA BLES Final Result [facility] [address] [place] [address], * (ABNORMAL) Comprehensive metabolic panel (04/09/2024 7:42 AM EST) Sodium 145 133 - 145 mmol/L LAB CHEMISTRY METHOD 04/09/2024 10:45 AM [facility] Potassium 5.1 3.5 - 5.5 mmol/L LAB CHEMISTRY METHOD 04/09/2024 10:45 AM [facility] Chloride 112(H) 96 - 110 mmol/L LAB CHEMISTRY METHOD 04/09/2024 10:45 AM EST [facility] CO2 25 21 - 32 mmol/L LAB CHEMISTRY METHOD 04/09/2024 10:45 AM [facility] Anion Gap 8 3 - 11 LAB CHEMISTRY METHOD 04/09/2024 10:45 AM [facility] Glucose 131(H) 70 - 100 mg/dL LAB CHEMISTRY METHOD 04/09/2024 10:45 AM [facility] BUN 15 5 - 25 mg/dL LAB CHEMISTRY METHOD 04/09/2024 10:45 AM [facility] Creatinine 1.01 0.50 - 1.10 mg/dL LAB CHEMISTRY METHOD 04/09/2024 10:45 AM [facility] eGFR 62 >=60 mL/min/1. 73m2 LAB CHEMISTRY METHOD 04/09/2024 10:45 AM [facility] Comment:Calculation based on the??Chronic Kidney Disease Epidemiology Collaboration (CKD-EPI) equation refit??without adjustment for race. BUN/Creatinine Ratio 14.9 LAB CHEMISTRY METHOD 04/09/2024 10:45 AM [facility] Calcium 9.8 8.5 - 10.5 mg/dL LAB CHEMISTRY METHOD 04/09/2024 10:45 AM [facility] AST (SGOT) 22 10 - 42 unit/L LAB CHEMISTRY METHOD 04/09/2024 10:45 AM [facility] ALT (SGPT) 24 10 - 60 unit/L LAB CHEMISTRY METHOD 04/09/2024 10:45 AM [facility] Alkaline Phosphatase 111 42 - 121 unit/L LAB CHEMISTRY METHOD 04/09/2024 10:45 AM [facility] Total Protein 7.3 6.0 - 8.0 g/dL LAB CHEMISTRY METHOD 04/09/2024 10:45 AM [facility] Albumin 3.9 3.2 - 5.0 g/dL LAB CHEMISTRY METHOD 04/09/2024 10:45 AM [facility] Total Bilirubin 0.7 0.0 - 1.4 mg/dL LAB CHEMISTRY METHOD 04/09/2024 10:45 AM [facility] Blood Venous blood specimen / Unknown Venipuncture / Unknown 04/09/2024 7:42 AM EST 04/09/2024 7:42 AM EST Waylon Perez MD LAB BLOOD ORDERA BLES Final Result Performing Organization Address City/[facility]/ZIP Co de Phone Number [facility] [address] [place] [address], [place] [phone] * Hepatitis C antibody (12/30/2023 7:40 AM EST) Hepatitis C Antibody Negative Negative LAB CHEMISTRY METHOD 12/30/2023 11:03 AM EST [facility] Blood Venous blood specimen / Unknown Venipuncture / Unknown 12/30/2023 7:40 AM EST 12/30/2023 7:40 AM EST Waylon Perez MD LAB BLOOD ORDERA BLES Final Result Performing Organization Address [facility] Co de Phone Number [facility] [address] [place] [address], [place] [phone] from Last 3 Months or Most Recently Relevant to Health Maintenance Insurance [address] 02/[address] [phone] [facility] MEDICAID - [place] Care Teams Animal Care Giver Relationship Specialty Start Date End Date Waylon Perez MD [address] [place] [id number] PCP - General Internal Medicine 11/29/23
[2024-06-04 08:58] VITALS: BMI 20.4
--- NOTE | 2024-06-04 08:58 | A.OFFVIS_ITS ---
Vital Signs 06/04/24 08:58 Height 5 ft 6 in Weight 126 lb 8.725 oz BMI 20.4 Intake Visit Reasons: 6 month f/u [facility] Intake Note: Patient in office today in follow up of [facility]. CC: Patient reports doing well with Linzess and denies having any new GI symptoms. Hand Stapler Required: No Accompanied by: Self / Same As Patient Allergies nicotine Allergy (Unknown, Verified 06/04/24 08:59) itching swelling of skin varenicline [From Chantix] Allergy (Unknown, Verified 06/04/24 08:59) increased irritability/ depression HPI HPI 6 month f/u [facility]: Details: Assessment & Plan (1) Constipation: Code(s): K59.00 - Constipation, unspecified Category: Medical (2) Abdominal pain: Code(s): R10.9 - Unspecified abdominal pain Category: Medical Plan She has been taking her fiber ?[id number]? supplement which may be a probiotic prebiotic and fiber supplement twice a day as directed. She finds that the Linzess at 145 micro g dose is moving her bowels well with mostly formed normal stools and only very occasional diarrhea after a formed stool. She feels happy with this and this has completely resolved the back pain she was contending with. She had some left lower quadrant pain initially when she started it, likely related to the stool burden, but this resolved later in the course. Return office visit in 6 months TODAY'S VISIT She continues to do well on her Linzess, senna and fiber supplement. She is satisfied with this regimen and has no new medical problems to report. ROV 6 mos. [facility] Medical History (Updated 06/04/24 @ 09:30 by WILFREDO Sow) Abdominal pain Nicotine dependence, cigarettes, uncomplicated History of breast cancer (~2001) Grief Depression Hyperglycemia Multiple thyroid nodules Lung nodules Normal Pap smear Gallbladder polyp COPD (chronic obstructive pulmonary disease) Osteopenia (~2007) Fibromyalgia Hyperlipidemia Surgical History History of breast reconstruction S/P thyroid biopsy History of hemorrhoidectomy History of bilateral mastectomy History of colonoscopy Family History Father HTN (hypertension) Diabetes mellitus Stroke Mother Breast cancer Brother Hyperlipidemia Maternal Aunt Breast cancer Sister Substance use disorder Mental health disorder Brother Pancreas cancer Brother Lung cancer Social History Housing: Apartment Alcohol intake: unknown Patient Tobacco Use Status: Current everyday Tobacco user Tobacco use type: Cigarette Cigarettes Per Day: 6 Years Smoked: 40 e-Cigarette/Vaping Use: Never Used Second Hand Smoke Exposure: No service: No Current occupational status: employed Current occupation: lt handed/dentist office Current occupational exposures/hazards: No Cognitive needs: No Hearing needs: No Vision needs: Yes Review of Systems Const Denies fatigue, Denies fever(s), Denies night sweats, Denies poor appetite and Denies weight loss Eyes Details: glasses Reports requires corrective lenses ENT Reports Normal hearing present, Denies dental pain, Denies dysphagia, Denies hearing loss, Denies mouth pain, Denies odynophagia, Denies throat swelling, Denies tongue swelling and Reports other (Dentition adequate) Card Reports no additional complaints Resp Reports no additional complaints GI Details: Denies abdominal pain, Denies melena, Denies bloating, Denies hematochezia, Reports constipation, Denies GI cramping, Denies dysphagia, Denies excessive flatus, Denies early satiety, Denies heartburn, Denies diarrhea, Denies nausea, Denies odynophagia, Denies vomiting and Denies hematemesis Skin/Breast Denies pruritus, Denies lesions, Denies rash and Denies jaundice Neuro Reports Normal hearing present and Denies Abnormal speech present Endo Denies fatigue Aller/Immun Denies throat swelling and Denies tongue swelling Physical Exam Vital Signs: BMI result Body Mass Index 20.4 Const General: cooperative, no acute distress, well developed and well groomed Nutritional Appearance: average body habitus and well nourished Orientation/consciousness: oriented to person, oriented to place and oriented to time Limitations: No language barrier HEENT Head: Yes normocephalic and Yes atraumatic Eyes General: appearance normal, both eyes and all related structures Pupils: Equal, round and reactive pupils present Neck Neck: Yes normal visual inspection and Yes no lymphadenopathy Thyroid: Thyroid normal Resp Effort & Inspection: normal respiratory effort and able to speak in complete sentences Auscultation: clear to auscultation bilaterally Cardio Rate: regular rate Rhythm: regular rhythm Heart sounds: Normal, physiologic split S2 sound present Peripheral pulses: radial pulses present and posterior tibial pulses present GI Inspection: No distended and No Abdominal panniculus present Palpation (GI): Soft to palpation, nontender, no guarding, not rigid and No hepatosplenomegaly present Percussion: Yes normal to percussion Auscultation: normal bowel sounds Rectal Exam - Female: deferred Skin General skin exam: no rashes or lesions noted, turgor normal, skin not dry, no jaundice, No spider nevi and no striae Rashes: no rashes Nails: normal Neuro General: oriented to person, oriented to place and oriented to time Cranial nerves: Yes Equal, round and reactive pupils present and Yes Normal hearing present Speech: No Abnormal speech present Extrem General: Yes normal to inspection, No clubbing, No cyanosis and No edema Psych Appearance: grossly normal and well kempt Mental Status: mental status grossly normal Speech and movement: Normal speech and movement present Affect: normal affect Attitude: cooperative Thought process: Normal thought process present and not confabulating Thought content: Normal thought content present Insight: Good insight present (Psych) Judgement: Good judgement present (Psych) Assessment & Plan Assessment & Plan (1) Constipation: Code(s): K59.00 - Constipation, unspecified Category: Medical Plan She continues to do well on her Linzess, senna and fiber supplement. She is satisfied with this regimen and has no new medical problems to report. ROV 6 mos. Medications: Changed From sennosides-docusate sodium 8.6-50 mg (Colace 2-In-1) 1 tab-cap PO BEDTIME To sennosides-docusate sodium 8.6-50 mg (Colace 2-In-1) 2 tab-caps (2 x 8.6-50 mg) PO BEDTIME 60 tabs 12RF Refilled linaclotide (Linzess) Take first thing in the morning with a full glass of water. 145 mcg PO QAM 30 caps 3RF K58.1 - Irritable bowel syndrome with constipation Coding Level of Care Code Est Pt Level 3 (64971) Diagnoses Constipation K59.00
== END 2024-06-04 09:27 | disposition home or self-care (01) ==
PROVIDERS: PCP Family Medicine; Visit Provider Nurse Practitioner
DX: K59.00 Constipation, unspecified (principal)
CPT/HCPCS: 99213

== ENCOUNTER 2024-12-15 14:12 | Outpatient (AMB) | payer OTHER, MEDICAID, SELFPAY ==
[2024-12-15 14:20] VITALS: BP 178/70; PULSE 80; BMI 19.9
--- NOTE | 2024-12-15 14:20 | MHC.OFFVIS ---
Vital Signs 12/15/24 14:20 Height 5 ft 6 in Weight 123 lb BMI 19.9 BP 178/70 H Blood Pressure Location Lt brachial Position Sitting Pulse 80 Intake Visit Reasons: Follow up [facility] Intake Note: Malgorzata presents to in office follow up of [facility]. CC: Patient reports that around 12/01 she had a BM and when she wiped and noticed a long thing on the toilet paper. She is concerned for tapeworm. She states that it was 4-6 inches long and after that episode she also noticed little white rice looking stuff in her stool for a few days after. Denies other GI symptoms or concerns today. Tanning Wheel Filler Required: No Accompanied by: Self / Same As Patient Allergies nicotine Allergy (Unknown, Verified 12/15/24 14:31) itching swelling of skin varenicline (From Chantix) Allergy (Unknown, Verified 12/15/24 14:31) increased irritability/ depression HPI HPI Follow up [facility]: Details: Assessment & Plan (1) Constipation: Code(s): K59.00 - Constipation, unspecified Category: Medical Plan She continues to do well on her Linzess, senna and fiber supplement. She is satisfied with this regimen and has no new medical problems to report. ROV 6 mos. Medications: Changed From sennosides-docusate sodium 8.6-50 mg (Colace 2-In-1) 1 tab-cap PO BEDTIME To sennosides-docusate sodium 8.6-50 mg (Colace 2-In-1) 2 tab-caps (2 x 8.6-50 mg) PO BEDTIME 60 tabs 12RF Refilled linaclotide (Linzess) Take first thing in the morning with a full glass of water. 145 mcg PO QAM 30 caps 3RF K58.1 - Irritable bowel syndrome with constipation TODAYS VISIT [facility] Medical History Abdominal pain Nicotine dependence, cigarettes, uncomplicated History of breast cancer (~2001) Grief Depression Hyperglycemia Multiple thyroid nodules Lung nodules Normal Pap smear Gallbladder polyp COPD (chronic obstructive pulmonary disease) Osteopenia (~2007) Fibromyalgia Hyperlipidemia Surgical History History of breast reconstruction S/P thyroid biopsy History of hemorrhoidectomy History of bilateral mastectomy History of colonoscopy Family History Father HTN (hypertension) Diabetes mellitus Stroke Mother Breast cancer Brother Hyperlipidemia Maternal Aunt Breast cancer Sister Substance use disorder Mental health disorder Brother Pancreas cancer Brother Lung cancer Social History Housing: Apartment Alcohol intake: unknown Patient Tobacco Use Status: Current everyday Tobacco user Tobacco use type: Cigarette Cigarettes Per Day: 6 Years Smoked: 40 e-Cigarette/Vaping Use: Never Used Second Hand Smoke Exposure: No service: No Current occupational status: employed Current occupation: lt handed/dentist office Current occupational exposures/hazards: No Cognitive needs: No Hearing needs: No Vision needs: Yes Review of Systems ENT Reports Normal hearing present Neuro Reports Normal hearing present and Denies Abnormal speech present Physical Exam Vital Signs: Last Vital Signs Pulse 80 12/15/24 14:20 BP 178/70 H 12/15/24 14:20 BMI result Body Mass Index 19.9 Const General: cooperative, no acute distress, well developed and well groomed Nutritional Appearance: well nourished and thin Orientation/consciousness: oriented to person, oriented to place and oriented to time Limitations: No language barrier HEENT Head: Yes normocephalic and Yes atraumatic Eyes General: appearance normal, both eyes and all related structures Pupils: Equal, round and reactive pupils present Neck Neck: Yes normal visual inspection and Yes no lymphadenopathy Thyroid: Thyroid normal Resp Effort & Inspection: normal respiratory effort and able to speak in complete sentences Auscultation: clear to auscultation bilaterally Cardio Rate: regular rate Rhythm: regular rhythm Heart sounds: Normal, physiologic split S2 sound present Peripheral pulses: radial pulses present and posterior tibial pulses present GI Inspection: No distended and No Abdominal panniculus present Palpation (GI): Soft to palpation, nontender, no guarding, not rigid and No hepatosplenomegaly present Percussion: Yes normal to percussion Auscultation: normal bowel sounds Rectal Exam - Female: deferred Skin General skin exam: no rashes or lesions noted, turgor normal, skin not dry, no jaundice, No spider nevi and no striae Rashes: no rashes Nails: normal Neuro General: oriented to person, oriented to place and oriented to time Cranial nerves: Yes Equal, round and reactive pupils present and Yes Normal hearing present Speech: No Abnormal speech present Extrem General: Yes normal to inspection, No clubbing, No cyanosis and No edema Psych Appearance: grossly normal and well kempt Mental Status: mental status grossly normal Speech and movement: Normal speech and movement present Affect: normal affect Attitude: cooperative Thought process: Normal thought process present and not confabulating Thought content: Normal thought content present Insight: Limited insight present (Psych) Judgement: Limited judgement present (Psych) Assessment & Plan Assessment & Plan (1) Abnormal stools: Code(s): R19.5 - Other fecal abnormalities Category: Medical Plan Problem with blood work, will be seeing pulp refiner operator. Also her renal status is in question. She is quite convinced, because she saw something ?stringy? in her stooling that she has a tapeworm. This is highly unlikely given today's scenario but we can order an ova and parasite to investigate. - Go to the lab for the ordered ova and parasite blood test; no fasting required. - Continue taking Senna and her fiber supplement as it effectively manages constipation. - Discontinue Linaclotide as it is ineffective. - Schedule a follow-up in six months unless am contacted sooner with test results. - Contact office if there are further concerns or complications. Orders: Orders Ova and Parasite 12/20/24 R19.5 - Other fecal abnormalities Medications: Changed From sennosides-docusate sodium 8.6-50 mg 2 tab-caps (2 x 8.6-50 mg) PO BEDTIME 90 days 180 tabs 1RF To sennosides-docusate sodium 8.6-50 mg (Colace 2-In-1) 2 tab-caps (2 x 8.6-50 mg) PO BEDTIME 180 tabs 1RF 90 days Discontinued linaclotide Take first thing in the morning with a full glass of water. Discontinued Reason: Doctor's Order 145 mcg PO QAM 30 caps 3RF K58.1 - Irritable bowel syndrome with constipation Coding Level of Care Code Est Pt Level 3 (10314) Diagnoses Abnormal stools R19.5
--- OUTSIDE RECORDS SUMMARY | 2024-12-15 17:22 | XMS_ITS | Encounter Summary ---
Demographics Address [address] [address] Home Phone Mobile Phone Email Address Preferred Language en Marital Status Amish Affiliation Unknown Race White Ethnic Group Unknown Author Organization [facility] [place] [address] Care Team Providers Care Air Moving Technician Name Role Phone Waylon Perez MD Primary Care Pr ovider Reason for Visit * Reason Onset Date Comments Medication 12/14/2024 Encounter Details Date Type Department Care Team ([facility] st Contact Info) Description 12/14/2024 Telephone Pulmonology - [place] [address] [place] [address] Sabine Chacko MD [address] [place] [address] [phone] Social History Tobacco Use Types Packs/Day Years Used Date Smoking Tobacco: Every Day Cigarettes 0.5 51.8 Started: [birth year]/10/1973 Smokeless Tobacco: Never Alcohol Use Standard Drinks/Week Comments Never 0 (1 standard drink = 0.6 oz [...] Record ed Within the last 3 months, [place] many times did you visit the emergency [...] for your loved ones. For example, child care sitter or elderly care for an older adult? [...] Date Recorded What is your living situation? Unrecognized valu e 04/09/2024 Comments Unknown Sex and Gender Information Value Date Recorded Sex Assigned at Not on file Legal Sex Female 12:53 PM EDT Gender Identity Not on file Sexual Orientation Not on file documented as of this encounter Progress Notes * Agustina Weaver - 12/14/2024 3:57 PM EST [facility] rx fax received for medication review letter Attached to encounter documented in this encounter Plan of Treatment Upcoming Encounters Date Type Department Care Team (Late st Contact Info) Description 01/13/2025 1:00 PM EST Office Visit [facility] Hematology Oncology [address] [place] [phone] Montserrat Tavarez DO [address] [place] [address] 03/09/2025 10:00 AM EST Appointment Bone Density - [address] [phone] 05/23/2025 8:30 AM EDT Office Visit [facility] - [address] [phone] Waylon Perez MD [address] [place], [place] 06/03/2025 8:15 AM EDT Office Visit Pulmonology [facility] [address] [place] [address] Sabine Chacko MD [address] [place] [phone] documented as of this encounter Visit Diagnoses Not on filedocumented in this encounter Additional Health Concerns Assessment Noted Time PHQ-9 Depression Total Score: 0 04/09/19 25 6:22 PM EST documented as of this encounter Care Teams Air Moving Technician Relationship Specialty Start Date End Date Waylon Perez MD [address] [place] [address] PCP - General Internal Medicine 11/29/23 documented as of this encounter
--- OUTSIDE RECORDS SUMMARY | 2024-12-15 17:22 | XMS_ITS | Clinical Summary ---
Demographics Address [address] [facility] [place] [place] [address] Home Phone Mobile Phone Email Address Preferred Language en Marital Status Episcopal Affiliation Unknown Race White Ethnic Group Unknown Author Organization [address] Address [address] [place] [phone] Phone Care Team Providers Care Insurance Representative Name Role Phone Waylon Perez MD Primary Care Pr ovider Allergies No known active allergies Medications Linzess 72 mcg capsuleIndications :Constipation, unspecified constipation type Take 1 capsule (72 mcg total) by mouth 1 (one) time each day in the morning. 12/05/19 24 Active albuterol HFA (ProAir HFA) 90 mcg/actuation inhalerIndications :Other emphysema (CMS/HCC V24, CMS/HCC V28) Inhale 2 puffs by mouth every 4 (four) hours if needed for wheezing or shortness of breath. 18 g 1 04/17/19 25 026 Active cholecalciferol (VITAMIN D-3) 50 mcg (2,000 unit) tabletIndications: Vitamin D deficiency Take 1 tablet (2,000 Units total) by mouth 1 (one) time each day. 90 tablet 3 04/17/19 25 026 Active albuterol HFA (PROAIR HFA ; PROVENTIL HFA ; VENTOLIN HFA) 90 mcg/actuation inhaler Inhale 2 puffs by mouth every 6 (six) hours if needed for wheezing or shortness of breath. 3 each 3 05/22/19 25 026 Active rosuvastatin (CRESTOR) 10 mg tabletIndications: Mixed hyperlipidemia TAKE 1 TABLET BY MOUTH 1 TIME EACH DAY. 90 tablet 1 07/20/19 25 Active fluticasone propionate (FLONASE) 50 mcg/actuation nasal sprayIndications:A cute rhinitis SHAKE GENTLY THEN INSTILL 1 SPRAY INTO EACH NOSTRIL TWICE A DAY PRIME BEFORE FIRST USE 48 mL 1 11/11/19 25 Active Senexon-S 8.6-50 mg per tablet Take 2 tablets by mouth 1 (one) time each day. 06/09/19 25 Active umeclidinium (Incruse Ellipta) 62.5 mcg/actuation inhalation Inhale 1 puff by mouth 1 (one) time each day. 3 each 3 12/04/19 25 026 Active aspirin 81 mg EC tabletIndications: Cerebral microvascular disease Take 1 tablet (81 mg total) by mouth 1 (one) time each day. 90 each 1 12/07/19 25 026 Active umeclidinium (INCRUSE ELLIPTA) 62.5 mcg/actuation inhalationIndicati ons:Other emphysema (CMS/HCC V24, CMS/[facility] V28) Inhale 1 puff by mouth 1 (one) time each day. 1 each 6 04/17/19 25 025 Discontin ued(Dupli luiz order) umeclidinium (Incruse Ellipta) 62.5 mcg/actuation inhalation Inhale 1 puff by mouth 1 (one) time each day. 3 each 3 05/22/19 25 025 Discontin ued(Reord er) Active Problems Problem Noted Date Diagnosed Date Cerebral microvascular disease 12/06/2024 Stage 3a chronic kidney disease (CMS/HCC V24, CM S/HCC V28) 11/24/2024 Prediabetes 11/24/2024 Polycythemia 11/24/2024 Isolated tremor of head 11/19/2024 Assessment & Plan (11/19/2024 8:35 AM EDT): Referred to Neurology Will check MRI of the brain and TSH Orders: MR Brain wo and w Contrast; Future Ambulatory referral to Neurology; Future Thyroid stimulating hormone with reflex to free t4 and free t3; Future Vitamin D deficiency 03/08/2024 Assessment & Plan (11/19/2024 8:35 AM EDT): Advised to try to use the vitamin D every day as prescribed Assessment & Plan (04/16/2024 11:51 AM EST): [...] each day. Constipation 12/26/2023 Assessment & Plan (11/19/2024 8:35 AM EDT): Continue follow-up regular [facility] GI. Continue Linzess as needed and senexon daily Assessment & Plan (04/16/2024 11:51 AM EST): Continue follow-up with [facility] gastroenterology. Has an appointment June 04. Continue Linzess as needed Assessment & Plan (12/26/2023 2:38 PM EST): Continue linzess prn and [facility] GI follow up History of right breast cancer 12/26/2023 Assessment & Plan (11/19/2024 8:35 AM EDT): Status post bilateral mastectomy with breast implants. Denies any concerns with implants Assessment & Plan (04/16/2024 11:51 AM EST): R breast cancer dx in 2001. She had chemotherapy and a double mastectomy. She has breast implants and reports no issues with them. No radiation of adjuvant chemotherapy Assessment & Plan (12/26/2023 2:38 PM EST): S/p Double mastectomy. She does not require any mammograms. Other emphysema (CMS/HCC V24, CMS/HCC V28) 12/25 Assessment & Plan (11/19/2024 8:35 AM EDT): Advised to use the anoro daily as prescribed Continue albuterol as needed Assessment & Plan (04/16/2024 11:51 AM EST): [...] HPI Mixed hyperlipidemia 12/26/2023 Assessment & Plan (11/19/2024 8:35 AM EDT): Well-controlled. Continue rosuvastatin 20 mg Orders: Comprehensive metabolic panel; Future Hemoglobin A1c; Future Lipid panel with reflex to direct LDL; Future Assessment & Plan (04/16/2024 11:51 AM EST): Much improved Continue rosuvastatin 10 mg daily Assessment & Plan (12/26/2023 2:38 PM EST): See HPI. She would likely require Repatha but will obtain labs first. Orders: Comprehensive metabolic panel; Future Lipid panel with reflex to direct LDL; Future Hemoglobin A1c; Future Tobacco use disorder 12/26/2023 Assessment & Plan (11/19/2024 8:35 AM EDT): Smoking cessation counselling provided See HPI Assessment & Plan (04/16/2024 11:51 AM EST): She will continue to cut back on her smoking on her own. Has low-dose CT scheduled for lung cancer screening at [facility] on June 02 Assessment & Plan (12/26/2023 2:38 PM EST): Smoking cessation counseling provided. She is trying to quit on her own. Previously tried Chantix and nicotine patches. Hx of breast implants, bilateral 12/26/2023 Assessment & Plan (12/26/2023 2:38 PM EST): Reports no issues with the breast implants. Fibromyalgia 12/26/2023 Assessment & Plan (11/19/2024 8:35 AM EDT): Continue ibuprofen [id number] as needed Assessment & Plan (04/16/2024 11:51 AM EST): Continue sparing use of ibuprofen as needed for pain Assessment & Plan (12/26/2023 2:38 PM EST): Continue OTC ibuprofen PRN. She declines long-term medication management Orders: CBC and differential; Future Comprehensive metabolic panel; Future Encounters Date Type Department Care Team Description 12/14/2024 Telephone Pulmonology - [address] [place] [phone] Sabine Chacko MD 12/06/2024 8:50 AM EDT - 12/06/2024 11:59 PM EDT Hospital Encounter Radiology Department - [address] [phone] Isolated tremor of head; Memory loss Discharge Disposition: Home or Self Care 12/03/2024 8:30 AM EDT Office Visit Pulmonology - [address] [facility] [address] [place] [phone] Sabine Chacko MD Chronic obstructive pulmonary disease, unspecified COPD type (CMS/HCC V24, CMS/HCC V28) (Primary Dx); Smoker; Lung nodules; CARVER (dyspnea on exertion) 12/03/2024 Telephone Lung Screening Program - [address] [facility] [address] [place] [phone] Sherry Leo [place] 11/29/2024 Telephone Adult Medicine [address] [phone] Waylon Perez MD 11/24/2024 Results Follow-Up Adult Medicine [address] [phone] Waylon Perez MD 11/19/2024 8:00 AM EDT Office Visit Adult Medicine [address] [phone] Waylon Perez MD Annual physical exam (Primary Dx); Need for prophylactic vaccination and inoculation against influenza; Need for tetanus, diphtheria, and acellular pertussis (Tdap) vaccine; Cervical cancer screening; Elevated hematocrit; History of right breast cancer; Fibromyalgia; Chronic idiopathic constipation; Mixed hyperlipidemia; Tobacco use disorder; Vitamin D deficiency; Other emphysema (CMS/HCC V24, CMS/HCC V28); Isolated tremor of head; Memory loss; Osteoporosis screening from Last 3 Months Immunizations Immunization Administration Dates Next Due Influenza Quadrivalent, 0.5m l, preservative free (Fluarix; FluLaval; Fluzone) ages 6mo and older (Afluria) 3yo and older 01/25/2022,01/03/2020,03/14/2017,2015 Influenza Quadrivalent, with preservative (Fluzone; Afluria) 6mo and older 12/16/2018 Influenza trivalent, MDCK, 0 .5mL, preservative free (Flucelvax) 6mo and older 11/19/2024,12/26/2023 Influenza trivalent, with preservative (Fluzone; Afluria) 6mo and older 01/16/2015 Pneumococcal conjugate 20 va lent (Prevnar 20, PCV 20) 2mo and older 01/25/2022 Tdap Tetanus diptheria acell ular pertussis (Boostrix; Adacel) 7yo and older 11/19/2024 Surgical History Surgery Date Site/Laterality Comments MASTECTOMY 02/10/2001 - 02/09/2002 Bilateral HERNIA REPAIR 02/10/1998 - 02/09/1999 Right femoral hernia ENDOMETRIAL ABLATION unsure if it was an ablation. BREAST SURGERY 09/2001 Medical History Medical History Date Comments COPD (chronic obstructive pulmonary disease) (CM S/HCC V24, CMS/HCC V28) Varicella Emphysema of lung (CMS/HCC V24, CMS/[facility] V28) Hypercholesteremia Depression Lung nodule Family History Medical History Relation Name Comments Pancreatic cancer Brother 1 Lung cancer Brother 2 Issac COPD Father Jhonatan Emphysema Father [place] Pneumonia Father Jhonatan tobacco use Father [place] Breast cancer Mother Luna Luna Asthma Sister Ysabel Breast cancer Sister Ysabel Colon cancer Neg Hx Ovarian cancer Neg Hx Relation Name Status Comments Brother 1 Brother 2 Issac Father [place] Maternal Grandfather Maternal Grandmother Mother Luna Luna Paternal Grandfather Paternal Grandmother Sister Ysabel Alive Social History Tobacco Use Types Packs/Day Years [...] your loved ones. For example, child care associate or elderly care for an older adult? [...] Sexual Orientation Not on file Obstetrics History * This document contains information received from the source organization and may not represent a complete record from that organization. Para Term AB IAB SAB Ectopic Multiple Livin g Live Births 2 1 1 Date Outcome GA Total Labor Labor/2nd/3rd Weight Sex Type Anes PTL Franca A1 A5 Name Clin Last Filed Vital Signs Vital Sign Reading Time Taken Comments Blood Pressure 150/64 12/03/2024 8:06 AM EDT Pulse 80 12/03/2024 8:06 AM EDT Temperature 36.3 C (97.4 F) 12/03/2024 8:06 AM EDT Respiratory Rate 12 12/03/2024 8:06 AM EDT Oxygen Saturation 100% 12/03/2024 8:06 AM EDT Inhaled Oxygen Concentration - - Weight 56.7 kg (125 lb) 12/06/2024 9:12 AM EDT Height 167.6 cm (5' 6 ) 12/03/2024 8:06 AM EDT Body Mass Index 20.18 12/03/2024 8:06 AM EDT Plan of Treatment Upcoming Encounters Date Type Department Care Team (Late st Contact Info) Description 01/13/2025 1:00 PM EST Office Visit [facility] Hematology Oncology [address] [place] [phone] Montserrat Tavarez DO [address] [place] [address] 03/09/2025 10:00 AM EST Appointment Bone Density - [address] [phone] 05/23/2025 8:30 AM EDT Office Visit Adult Medicine South - [address] [phone] Waylon Perez MD [address] [place] [address] 06/03/2025 8:15 AM EDT Office Visit Pulmonology [facility] [address] [facility] [address] [place] [phone] Sabine Chacko MD [address] [place] [address] Health Maintenance Due Date Last Done Comments Cervical Cancer Screening: Pap Smear 12/07/1980 RSV Immunization Adult Patients (1 - Risk 50-74 years 1-dose series) 12/07/2009 Zoster Vaccines (1 of 2) 12/07/2009 Lung Cancer Screening (Low Dose CT) 11/29/2023 Osteoporosis Screening (Bone Density Screening) 11/29/2023 Falls Risk Assessment 12/07/2024 Social Influencers of Health Screening 04/09/2025 04/09/2024 Colorectal Cancer Screening: Colonoscopy 04/23/2027 Cholesterol Screening (Lipid Panel) 11/19/2029 11/19/2024, 04/09/2024, 12/30/2023 DTaP,Tdap,and Td Vaccines (2 - Td or Tdap) 11/19/2034 11/19/2024 COVID-19 Vaccine Discontinued 08/19/2020, 07/29/2020 Pneumococcal Vaccine: 50+ Years Completed 01/25/2022 Hepatitis C Screening Completed 12/30/2023 Depression Screening Completed 04/09/2024 Influenza Vaccine Completed 11/19/2024, , 01/25/2022, Additional history exists HIB Vaccines Aged Out No longer eligi [...] Procedure Name Priority Date/Time Associated Diagnosis Comments MR BRAIN WO AND W CONTRAST Routine 12/06/2024 10:07 AM EDT Isolated tremor of head Memory loss CBC WITH AUTO DIFFERENTIAL Routine 11/19/2024 8:46 AM EDT Elevated hematocrit CBC AND DIFFERENTIAL Routine 11/19/2024 8:46 AM EDT Elevated hematocrit COMPREHENSIVE METABOLIC PANEL Routine 11/19/2024 8:46 AM EDT Mixed hyperlipidemia HEMOGLOBIN A1C Routine 11/19/2024 8:46 AM EDT Mixed hyperlipidemia LIPID PANEL WITH REFLEX TO DIRECT LDL Routine 11/19/2024 8:46 AM EDT Mixed hyperlipidemia THYROID STIMULATING HORMONE WITH REFLEX TO FREE T4 AND FREE T3 Routine 11/19/2024 8:46 AM EDT Isolated tremor of head HEPATITIS C ANTIBODY Routine 12/30/2023 7:40 AM EST Need for hepatitis C screening test from Last 3 Months or Most Recently Relevant to Health Maintenance Results * MR Brain wo and w Contrast (12/06/2024 10:07 AM EDT) Anatomical Region Laterality Modality Head and Neck Magnetic Resonan ce 12/06/2024 3:47 PM EDT Narrative 12/06/2024 4:15 PM EDT MRI of the head without and with intravenous contrast. History tremors. Memory loss. History of breast cancer. Examination was performed on 1.5 Arline magnet without administration of intravenous contrast followed by postcontrast study after administration of 11 mL of DOTAREM. No prior studies are available for comparison. There is no evidence of midline shift, extra or intra-axial blood fluid collections. There is no visible masses, mass effect or focal areas of restricted diffusion. Ventricular system is symmetric and normal in size. Fourth ventricle and basal cisterns are midline and patent. There are a few nonspecific foci of increased FLAIR signal in the subcortical white matter in both cerebral hemispheres the largest area in the left parietal lobe. The revealed no enhancement or restricted diffusion. Incidental findings of a small bright T1 and T2 signal intensity structure in the vicinity of the right eustachian tube, measuring 0.6 x 1 cm, which revealed no restricted diffusion and no enhancement. It could represent retained fluid with high proteinaceous content. Clinical evaluation is recommended to rule out neoplastic process. There is a small Thornwaldt cyst centrally. Paranasal sinuses and thumb mastoid processes appear to be under aerated. CONCLUSIONS: Nonspecific white matter signal abnormalities most likely due to chronic small vessel ischemia. No associated restricted diffusion or enhancement. Incidental findings in the right eustachian tube which could represent retained fluid versus proteinaceous content. Possibility of neoplasm is not excluded. Clinical assessment is recommended. A copy of this report will be provided to the [facility] [employer] Program. -------- FINAL REPORT -------- Dictated By: Portia Messer Dictated Date: 12/06/2024 15:47 ET Assigned Physician: Portia Messer Reviewed and Electronically Signed By: Portia Messer Signed Date: 12/06/2024 16:15 ET Workstation ID: [id number] Transcribed By: Self Edit Transcribed Date: 12/06/2024 15:47 ET Procedure Note Portia Messer MD - 12/06/2024 MRI of the head without and with intravenous contrast. History tremors. Memory loss. History of breast cancer. Examination was performed on 1.5 Arline magnet without administration ofintravenous contrast followed by postcontrast study after administrationof 11 mL of DOTAREM. No prior studies are available for comparison. There is no evidence of midline shift, extra or intra-axial blood fluidcollections. There is no visible masses, mass effect or focal areas ofrestricted diffusion. Ventricular system is symmetric and normal in size.Fourth ventricle and basal cisterns are midline and patent. There are afew nonspecific foci of increased FLAIR signal in the subcortical whitematter in both cerebral hemispheres the largest area in the left parietallobe. The revealed no enhancement or restricted diffusion. Incidentalfindings of a small bright T1 and T2 signal intensity structure in thevicinity of the right eustachian tube, measuring 0.6 x 1 cm, whichrevealed no restricted diffusion and no enhancement. It could representretained fluid with high proteinaceous content. Clinical evaluation isrecommended to rule out neoplastic process. There is a small Thornwaldtcyst centrally. Paranasal sinuses and thumb mastoid processes appear to be underaerated. CONCLUSIONS: Nonspecific white matter signal abnormalities most likely dueto chronic small vessel ischemia. No associated restricted diffusion orenhancement. Incidental findings in the right eustachian tube which couldrepresent retained fluid versus proteinaceous content. Possibility ofneoplasm is not excluded. Clinical assessment is recommended. A copy of this report will be provided to the [facility] [employer]. -------- FINAL REPORT -------- Dictated By: Portia Messer Dictated Date: 12/06/2024 15:47 ET Assigned Physician: Portia Messer Reviewed and Electronically Signed By: Portia Messer Signed Date: 12/06/2024 16:15 ET Workstation ID: [id number] Transcribed By: Self Edit Transcribed Date: 12/06/2024 15:47 ET Waylon Perez MD IMG MRI PROCEDUR ES Final Result * Thyroid stimulating hormone with reflex to free t4 and free t3 (11/19/2024 8:46 AM EDT) [facility] TSH 1.14 0.40 - 4.00 mcIU/mL LAB CHEMISTRY METHOD 11/19/2024 11:04 AM EDT [facility] Blood Venous blood specimen / Unknown Venipuncture / Unknown 11/19/2024 8:46 AM EDT 11/19/2024 8:46 AM EDT Waylon Perez MD LAB BLOOD ORDERA BLES Final Result [facility] [address] [place] [address], [place] [phone] * (ABNORMAL) Lipid panel with reflex to direct LDL (11/19/2024 8:46 AM EDT) [facility] Cholesterol 185 0 - 200 mg/dL LAB CHEMISTRY METHOD 11/19/2024 10:36 AM EDT [facility] Triglycerides 109 0 - 150 mg/dL LAB CHEMISTRY METHOD 11/19/2024 10:[address] [facility] HDL 52 >=40 mg/dL LAB CHEMISTRY METHOD 11/19[facility]2024 [facility] LDL Calculated 111(H) 0 - 100 mg/dL LAB CHEMISTRY METHOD 11/19/2024 10:36 AM EDT [facility] Comment:Estimated LDL Calcul ated using equation: Total cholesterol - HDL cholesterol - (Triglycerides/5) VLDL Cholesterol Kyle 21.8 mg/dL LAB CHEMISTRY METHOD 11/19/2024 10:[address] [facility] Non HDL Chol. (LDL+VLDL) 133 <145 mg/dL LAB CHEMISTRY METHOD 11/19/2024 10:[address] [facility] Chol/HDL Ratio 3.6 0.0 - 4.4 LAB CHEMISTRY METHOD 11/19/2024 10:[address] [facility] Blood Venous blood specimen / Unknown Venipuncture / Unknown 11/19/2024 8:46 AM EDT 11/19/2024 8:46 AM EDT Waylon Perez MD LAB BLOOD ORDERA BLES Final Result [facility] [address] [place] [address], * (ABNORMAL) CBC auto differential (11/19/2024 8:46 AM EDT) [facility] WBC 10.5 4.8 - 10.8 K/[facility] LAB HEMETOLOGY METHOD 11/19/2024 10:22 AM EDT [facility] RBC 5.40(H) 3.80 - 4.80 M/[facility] LAB HEMETOLOGY METHOD 11/19/2024 10:[address] [facility] Hemoglobin 16.4(H) 11.5 - 16.0 g/dL LAB HEMETOLOGY METHOD 11/19/2024 10:[address] [facility] Hematocrit 51.4(H) 35.0 - 47.0 % LAB HEMETOLOGY METHOD 11/19/2024 10:[address] [facility] MCV 95.9 79.0 - 98.0 FL LAB HEMETOLOGY METHOD 11/19/2024 10:[address] [facility] MCH 30.6 27.0 - 32.0 pcg LAB HEMETOLOGY METHOD 11/19/2024 10:[address] [facility] MCHC 31.9(L) 32.0 - 37.0 g/dL LAB HEMETOLOGY METHOD 11/19/2024 10:[address] [facility] RDW 13.2 11.0 - 15.0 % LAB HEMETOLOGY METHOD 11/19/2024 10:[address] [facility] Platelets 312 130 - 400 K/[facility] LAB HEMETOLOGY METHOD 11/19/2024 10:[address] [facility] MPV 10.4 7.0 - 11.0 FL LAB HEMETOLOGY METHOD 11/19/2024 10:[address] [facility] NRBC 0.0 <1.0 % LAB HEMETOLOGY METHOD 11/19/2024 10:[address] [facility] NRBC Absolute 0.00 <0.10 K/mcL LAB HEMETOLOGY METHOD 11/19/2024 10:[address] [facility] Neutrophils Relative 67.6 % LAB HEMETOLOGY METHOD 11/19/2024 10:[address] [facility] Lymphocytes Relative 25.4 % LAB HEMETOLOGY METHOD 11/19/2024 10:[address] [facility] Monocytes Relative 6.0 % LAB HEMETOLOGY METHOD 11/19/2024 10:[address] [facility] Eosinophils Relative 0.3 % LAB HEMETOLOGY METHOD 11/19/2024 10:[address] [facility] Basophils Relative 0.5 % LAB HEMETOLOGY METHOD 11/19/2024 10:[address] [facility] Immature Granulocytes Relative 0.2 % LAB HEMETOLOGY METHOD 11/19/2024 10:[address] [facility] Neutrophils Absolute 7.10(H) 1.50 - 7.00 K/mcL LAB HEMETOLOGY METHOD 11/19/2024 10:[address] [facility] Lymphocytes Absolute 2.66 1.00 - 5.00 K/mcL LAB HEMETOLOGY METHOD 11/19/2024 10:[address] [facility] Monocytes Absolute 0.63 0.20 - 1.00 K/mcL LAB HEMETOLOGY METHOD 11/19/2024 10:[address] [facility] Eosinophils Absolute 0.03 0.00 - 0.50 K/mcL LAB HEMETOLOGY METHOD 11/19/2024 10:[address] [facility] Basophils Absolute 0.05 0.00 - 0.20 K/mcL LAB HEMETOLOGY METHOD 11/19/2024 10:[address] [facility] Immature Granulocytes Absolute 0.02 0.00 - 0.03 K/mcL LAB HEMETOLOGY METHOD 11/19/2024 10:[address] [facility] Blood Venous blood specimen / Unknown Venipuncture / Unknown 11/19/2024 8:46 AM EDT 11/19/2024 8:46 AM EDT Waylon Perez MD LAB BLOOD ORDERA BLES Final Result Performing Organization Address City/[facility]/ZIP Co de Phone Number [facility] [address] [place] [address], * Hemoglobin A1c (11/19/2024 8:46 AM EDT) [facility] Hemoglobin A1C 6.1 <6.5 % LAB CHEMISTRY METHOD 11/19/2024 1:19 PM EDT [facility] Mean Bld Glu Estim. 128 mg/dL LAB CHEMISTRY METHOD 11/19/2024 1:19 PM EDT [facility] Blood Venous blood specimen / Unknown Venipuncture / Unknown 11/19/2024 8:46 AM EDT 11/19/2024 8:46 AM EDT Waylon Perez MD LAB BLOOD ORDERA BLES Final Result Performing Organization Address City/[facility]/ZIP Co de Phone Number [facility] [address] [place] [address], [place] [phone] * (ABNORMAL) Comprehensive metabolic panel (11/19/2024 8:46 AM EDT) [facility] Sodium 142 133 - 145 mmol/L LAB CHEMISTRY METHOD 11/19/2024 10:36 AM T [facility] Potassium 4.4 3.5 - 5.5 mmol/L LAB CHEMISTRY METHOD 11/19/2024 10:36 AM EDT [facility] Chloride 105 96 - 110 mmol/L LAB CHEMISTRY METHOD 11/19/2024 10:36 AM EDT [facility] CO2 29 21 - 32 mmol/L LAB CHEMISTRY METHOD 11/19/2024 10:36 AM EDT [facility] Anion Gap 8 3 - 11 LAB CHEMISTRY METHOD 11/19/2024 10:36 AM EDT [facility] Glucose 136(H) 70 - 100 mg/dL LAB CHEMISTRY METHOD 11/19/2024 10:[address] [facility] BUN 16 5 - 25 mg/dL LAB CHEMISTRY METHOD 11/19/2024 10:[address] [facility] Creatinine 1.05 0.50 - 1.10 mg/dL LAB CHEMISTRY METHOD 11/19/2024 10:[address] [facility] eGFR 59(L) >=60 mL/min/1. 73m2 LAB CHEMISTRY METHOD 11/19/2024 10:[address] [facility] Comment:Calculation based on the Chronic Kidney Disease Epidemiology Collaboration (CKD-EPI) equation refit without adjustment for race. BUN/Creatinine Ratio 15.2 LAB CHEMISTRY METHOD 11/19/2024 10:[address] [facility] Calcium 10.1 8.5 - 10.5 mg/dL LAB CHEMISTRY METHOD 11/19/2024 10:[address] [facility] AST (SGOT) 27 10 - 42 unit/L LAB CHEMISTRY METHOD 11/19/2024 10:[address] [facility] ALT (SGPT) 34 10 - 60 unit/L LAB CHEMISTRY METHOD 11/19/2024 10:[address] [facility] Alkaline Phosphatase 115 42 - 121 unit/L LAB CHEMISTRY METHOD 11/19/2024 10:[address] [facility] Total Protein 6.9 6.0 - 8.0 g/dL LAB CHEMISTRY METHOD 11/19/2024 10:[address] [facility] Albumin 4.0 3.2 - 5.0 g/dL LAB CHEMISTRY METHOD 11/19/2024 10:[address] [facility] Total Bilirubin 0.6 0.0 - 1.4 mg/dL LAB CHEMISTRY METHOD 11/19/2024 10:[address] [facility] Blood Venous blood specimen / Unknown Venipuncture / Unknown 11/19/2024 8:46 AM EDT 11/19/2024 8:46 AM EDT Waylon Perez MD LAB BLOOD ORDERA BLES Final Result Performing Organization Address City/[facility]/ZIP Co de Phone Number [facility] [address] [place] [address], [place] [phone] * Hepatitis C antibody (12/30/2023 7:40 AM EST) Hepatitis C Antibody Negative Negative LAB CHEMISTRY METHOD 12/30/2023 11:03 AM EST [facility] Blood Venous blood specimen / Unknown Venipuncture / Unknown 12/30/2023 7:40 AM EST 12/30/2023 7:40 AM EST Waylon Perez MD LAB BLOOD ORDERA BLES Final Result Performing Organization Address City/[facility]/ZIP Co de Phone Number [facility] [address] [place] [address], [place] [phone] from Last 3 Months or Most Recently Relevant to Health Maintenance Insurance [address] [phone] [facility] MEDICAID - [place] Care Teams Insurance Representative Relationship Specialty Start Date End Date Waylon Perez MD [address] [place] [phone] PCP - General Internal Medicine 11/29/23
== END 2024-12-15 14:53 | disposition home or self-care (01) ==
LOC: HO.HGI 14:13
PROVIDERS: PCP Family Medicine; Visit Provider Nurse Practitioner
DX: R19.5 Other fecal abnormalities (principal)
CPT/HCPCS: 99213

== ENCOUNTER 2024-12-16 06:05 | Outpatient (REF) | payer OTHER, SELFPAY ==
--- OUTSIDE RECORDS SUMMARY | 2024-12-16 06:09 | XMS_ITS | Encounter Summary ---
Demographics Address [birth year][address] [address] Home Phone Mobile Phone Email Address Preferred Language en Marital Status Hindu Affiliation Unknown Race White Ethnic Group Unknown Author Organization [facility] [place] [address] Care Team Providers Care Clinical Services Director Name Role Phone Waylon Perez MD Primary Care Pr ovider Reason for Visit * Reason Onset Date Comments Medication 12/14/2024 Encounter Details Date Type Department Care Team ([facility] st Contact Info) Description 12/14/2024 Telephone Pulmonology - [place] [address] [facility] [address] [place] [address] Sabine Chacko MD [address] [place] [phone] Social History Tobacco Use Types Packs/Day Years [...] care for your loved ones. For example, childcare attendant or elderly care for an older adult? [...] Description 01/13/2025 1:00 PM EST Office Visit [facility] Hematology Oncology [address] [place] [phone] Montserrat Tavarez DO [address] [place] [address] 03/09/2025 10:00 AM EST Appointment Bone Density - [address] [phone] 05/23/2025 8:30 AM EDT Office Visit Adult Medicine South - [address] [phone] Waylon Perez MD [address] [place], [place] 06/03/2025 8:15 AM EDT Office Visit Pulmonology [facility] [address] [facility] [address] [place] [address] Sabine Chacko MD [address] [place] [phone] documented as of this encounter Visit Diagnoses Not on filedocumented in this encounter Additional Health Concerns Assessment Noted Time PHQ-9 Depression Total Score: 0 04/09/19 25 6:22 PM EST documented as of this encounter Care Teams Clinical Services Director Relationship Specialty Start Date End Date Waylon Perez MD [address] [place] [address] PCP - General Internal Medicine 11/29/23 documented as of this encounter
--- OUTSIDE RECORDS SUMMARY | 2024-12-16 06:09 | XMS_ITS | Clinical Summary ---
Demographics Address 36 02[address] [facility] [place] [address] Home Phone Mobile Phone Email Address Preferred Language en Marital Status Mosque Affiliation Unknown Race White Ethnic Group Unknown Author Organization [address] [facility] Address [address] [place] [phone] Phone Care Team Providers Care Yarn Man Name Role Phone Waylon Perez MD Primary [...] 62.5 mcg/actuation inhalationIndicati ons:Other emphysema (CMS/HCC V24, CMS/[facility] V28) Inhale 1 puff by mouth 1 [...] (11/19/2024 8:35 AM EDT): Continue follow-up regular [facility] GI. Continue Linzess as needed and senexon daily Assessment & Plan (04/16/2024 11:51 AM EST): Continue follow-up with [facility] gastroenterology. Has an appointment June 04. Continue Linzess as needed Assessment & Plan (12/26/2023 2:38 PM EST): Continue linzess prn and [facility] GI follow up History of right breast [...] CT scheduled for lung cancer screening at [facility] on June 02 Assessment & Plan (12/26/2023 2:38 PM EST): Smoking cessation counseling provided. She is trying to quit on her own. Previously tried Chantix and nicotine patches. Hx of breast implants, bilateral 12/26/2023 Assessment & Plan (12/26/2023 2:38 PM EST): Reports no issues with the breast implants. Fibromyalgia 12/26/2023 Assessment & Plan (11/19/2024 8:35 AM EDT): Continue ibuprofen [id number] as needed Assessment & Plan (04/16/2024 11:51 AM EST): Continue sparing use of ibuprofen as needed for pain Assessment & Plan (12/26/2023 2:38 PM EST): Continue OTC ibuprofen PRN. She declines long-term medication management Orders: CBC and differential; Future Comprehensive metabolic panel; Future Encounters Date Type Department Care Team Description 12/14/2024 Telephone Pulmonology - [address] [place] [address] Sabine Chacko MD 12/06/2024 8:50 AM EDT - 12/06/2024 11:59 PM EDT Hospital Encounter Radiology Department - [address] [phone] Isolated tremor of head; Memory loss Discharge Disposition: Home or Self Care 12/03/2024 8:30 AM EDT Office Visit Pulmonology - [place] [address] [facility] [address] [place] [phone] Sabine Chacko MD Chronic obstructive pulmonary disease, unspecified COPD type (CMS/HCC V24, CMS/HCC V28) (Primary Dx); Smoker; Lung nodules; CARVER (dyspnea on exertion) 12/03/2024 Telephone Lung Screening Program - [place] [address] [facility] [address] [place] [phone] Sherry Leo [place] 11/29/2024 Telephone Adult Medicine [address] [phone] Waylon Perez MD 11/24/2024 Results Follow-Up Adult Medicine [address] [phone] Waylon Perez MD 11/19/2024 8:00 AM EDT Office Visit Adult Medicine [address] [phone] Waylon Perez MD Annual physical exam (Primary [...] V28) Varicella Emphysema of lung (CMS/HCC V24, CMS/[facility] V28) Hypercholesteremia Depression Lung nodule Family History Medical History Relation Name Comments Pancreatic cancer Brother 1 Lung cancer Brother 2 Issac COPD Father Jhonatan Emphysema Father [place] Pneumonia Father Jhonatan tobacco use Father [place] Breast cancer Mother Luna Luna Asthma Sister Ysabel Breast cancer Sister Ysabel Colon cancer Neg Hx Ovarian cancer Neg Hx Relation Name Status Comments Brother 1 Brother 2 Issac Father [place] Maternal Grandfather Maternal Grandmother Mother Luna Luna [...] for your loved ones. For example, child day care center worker or elderly care for an older adult? [...] Description 01/13/2025 1:00 PM EST Office Visit [facility] Hematology Oncology [address] [place] [phone] Montserrat Tavarez DO [address] [place] [address] 03/09/2025 10:00 AM EST Appointment Bone Density - [address] [phone] 05/23/2025 8:30 AM EDT Office Visit Adult Medicine South - [address] [phone] Waylon Perez MD [address] [place] [address] 06/03/2025 8:15 AM EDT Office Visit Pulmonology [facility] 175 [facility] [address] [place] [phone] Sabine Chacko MD [address] [place] [address] Health Maintenance Due Date Last [...] this report will be provided to the [facility]Stor Program. -------- FINAL REPORT -------- Dictated By: Portia Messer Dictated Date: 12/06/2024 15:47 ET Assigned Physician: Portia Messer Reviewed and Electronically Signed By: Portia Messer Signed Date: 12/06/2024 16:15 ET Workstation ID: [id number] Transcribed By: Self Edit Transcribed Date: 12/06/2024 [...] this report will be provided to the [facility] FINDProgram. -------- FINAL REPORT -------- Dictated By: Portia Messer Dictated Date: 12/06/2024 15:47 ET Assigned Physician: Portia Messer Reviewed and Electronically Signed By: Portia Messer Signed Date: 12/06/2024 16:15 ET Workstation ID: [id number] Transcribed By: Self Edit Transcribed Date: 12/06/2024 15:47 ET Waylon Perez MD IMG MRI PROCEDUR ES Final Result * Thyroid stimulating hormone with reflex to free t4 and free t3 (11/19/2024 8:46 AM EDT) [facility] TSH 1.14 0.40 - 4.00 mcIU/mL LAB CHEMISTRY METHOD 11/19/2024 11:04 AM EDT [facility] Blood Venous blood specimen / Unknown Venipuncture / Unknown 11/19/2024 8:46 AM EDT 11/19/2024 8:46 AM EDT Waylon Perez MD LAB BLOOD ORDERA BLES Final Result [facility] [address] [place] [address], [place] [phone] * (ABNORMAL) Lipid panel with reflex to direct LDL (11/19/2024 8:46 AM EDT) [facility] Cholesterol 185 0 - 200 mg/dL LAB CHEMISTRY METHOD 11/19/2024 10:36 AM EDT [facility] Triglycerides 109 0 - 150 mg/dL LAB CHEMISTRY METHOD 11/19/2024 10:36 AM [facility] HDL 52 >=40 mg/dL LAB CHEMISTRY METHOD 11/19/2024 10:36 [facility] LDL Calculated 111(H) 0 - 100 mg/dL LAB CHEMISTRY METHOD 11/19/2024 10:36 AM EDT [facility] Comment:Estimated LDL Calcul ated using equation: Total cholesterol - HDL cholesterol - (Triglycerides/5) VLDL Cholesterol Kyle 21.8 mg/dL LAB CHEMISTRY METHOD 11/19/2024 10:36 AM [facility] Non HDL Chol. (LDL+VLDL) 133 <145 mg/dL LAB CHEMISTRY METHOD 11/19/2024 10:36 AM [facility] Chol/HDL Ratio 3.6 0.0 - 4.4 LAB CHEMISTRY METHOD 11/19/2024 10:36 AM [facility] Blood Venous blood specimen / Unknown Venipuncture / Unknown 11/19/2024 8:46 AM EDT 11/19/2024 8:46 AM EDT Waylon Perez MD LAB BLOOD ORDERA BLES Final Result [facility] [address] [place] [address], * (ABNORMAL) CBC auto differential (11/19/2024 8:46 AM EDT) [facility] WBC 10.5 4.8 - 10.8 K/[facility] HEMETOLOGY METHOD 11/19/2024 10:22 AM EDT [facility] RBC 5.40(H) 3.80 - 4.80 M/[facility] LAB HEMETOLOGY METHOD 11/19/2024 10:22 AM [facility] Hemoglobin 16.4(H) 11.5 - 16.0 g/dL LAB HEMETOLOGY METHOD 11/19/2024 10:22 AM [facility] Hematocrit 51.4(H) 35.0 - 47.0 % LAB HEMETOLOGY METHOD 11/19/2024 10:22 AM [facility] MCV 95.9 79.0 - 98.0 FL LAB HEMETOLOGY METHOD 11/19/2024 10:22 AM [facility] MCH 30.6 27.0 - 32.0 pcg LAB HEMETOLOGY METHOD 11/19/2024 10:22 AM [facility] MCHC 31.9(L) 32.0 - 37.0 g/dL LAB HEMETOLOGY METHOD 11/19/2024 10:22 AM [facility] RDW 13.2 11.0 - 15.0 % LAB HEMETOLOGY METHOD 11/19/2024 10:22 AM [facility] Platelets 312 130 - 400 K/[facility] HEMETOLOGY METHOD 11/19/2024 10:22 AM [facility] MPV 10.4 7.0 - 11.0 FL LAB HEMETOLOGY METHOD 11/19/2024 10:22 AM [facility] NRBC 0.0 <1.0 % LAB HEMETOLOGY METHOD 11/19/2024 10:22 AM [facility] NRBC Absolute 0.00 <0.10 K/mcL LAB HEMETOLOGY METHOD 11/19/2024 10:22 AM [facility] Neutrophils Relative 67.6 % LAB HEMETOLOGY METHOD 11/19/2024 10:22 AM [facility] Lymphocytes Relative 25.4 % LAB HEMETOLOGY METHOD 11/19/2024 10:22 AM [facility] Monocytes Relative 6.0 % LAB HEMETOLOGY METHOD 11/19/2024 10:22 AM [facility] Eosinophils Relative 0.3 % LAB HEMETOLOGY METHOD 11/19/2024 10:22 AM [facility] Basophils Relative 0.5 % LAB HEMETOLOGY METHOD 11/19/2024 10:22 AM [facility] Immature Granulocytes Relative 0.2 % LAB HEMETOLOGY METHOD 11/19/2024 10:22 AM [facility] Neutrophils Absolute 7.10(H) 1.50 - 7.00 K/mcL LAB HEMETOLOGY METHOD 11/19/2024 10:22 AM [facility] Lymphocytes Absolute 2.66 1.00 - 5.00 K/mcL LAB HEMETOLOGY METHOD 11/19/2024 10:22 AM [facility] Monocytes Absolute 0.63 0.20 - 1.00 K/mcL LAB HEMETOLOGY METHOD 11/19/2024 10:22 AM [facility] Eosinophils Absolute 0.03 0.00 - 0.50 K/mcL LAB HEMETOLOGY METHOD 11/19/2024 10:22 AM [facility] Basophils Absolute 0.05 0.00 - 0.20 K/mcL LAB HEMETOLOGY METHOD 11/19/2024 10:22 AM [facility] Immature Granulocytes Absolute 0.02 0.00 - 0.03 K/mcL LAB HEMETOLOGY METHOD 11/19/2024 10:22 AM [facility] Blood Venous blood specimen / Unknown Venipuncture / Unknown 11/19/2024 8:46 AM EDT 11/19/2024 8:46 AM EDT Waylon Perez MD LAB BLOOD ORDERA BLES Final Result Performing Organization Address City/[facility]/ZIP Co de Phone Number [facility] [address] [place] [address], * Hemoglobin A1c (11/19/2024 8:46 AM EDT) [facility] Hemoglobin A1C 6.1 <6.5 % LAB CHEMISTRY METHOD 11/19/2024 1:19 PM EDT [facility] Mean Bld Glu Estim. 128 mg/dL LAB CHEMISTRY METHOD 11/19/2024 1:19 PM EDT [facility] Blood Venous blood specimen / Unknown Venipuncture / Unknown 11/19/2024 8:46 AM EDT 11/19/2024 8:46 AM EDT Waylon Perez MD LAB BLOOD ORDERA BLES Final Result Performing Organization Address City/[facility]/ZIP Co de Phone Number [facility] [address] [place] [address], [place] [phone] * (ABNORMAL) Comprehensive metabolic panel (11/19/2024 8:46 AM EDT) [facility] Sodium 142 133 - 145 mmol/L LAB CHEMISTRY METHOD 11/19/2024 10:36 AM T [facility] Potassium 4.4 3.5 - 5.5 mmol/L LAB CHEMISTRY METHOD 11/19/2024 10:36 AM EDT [facility] Chloride 105 96 - 110 mmol/L LAB CHEMISTRY METHOD 11/19/2024 10:36 AM EDT [facility] CO2 29 21 - 32 mmol/L LAB CHEMISTRY METHOD 11/19/2024 10:36 AM EDT [facility] Anion Gap 8 3 - 11 LAB CHEMISTRY METHOD 11/19/2024 10:36 AM EDT [facility] Glucose 136(H) 70 - 100 mg/dL LAB CHEMISTRY METHOD 11/19/2024 10:36 AM [facility] BUN 16 5 - 25 mg/dL LAB CHEMISTRY METHOD 11/19/2024 10:36 AM [facility] Creatinine 1.05 0.50 - 1.10 mg/dL LAB CHEMISTRY METHOD 11/19/2024 10:36 AM [facility] eGFR 59(L) >=60 mL/min/1. 73m2 LAB CHEMISTRY METHOD 11/19/2024 10:36 AM [facility] Comment:Calculation based on the Chronic Kidney Disease Epidemiology Collaboration (CKD-EPI) equation refit without adjustment for race. BUN/Creatinine Ratio 15.2 LAB CHEMISTRY METHOD 11/19/2024 10:36 AM [facility] Calcium 10.1 8.5 - 10.5 mg/dL LAB CHEMISTRY METHOD 11/19/2024 10:36 AM [facility] AST (SGOT) 27 10 - 42 unit/L LAB CHEMISTRY METHOD 11/19/2024 10:36 AM [facility] ALT (SGPT) 34 10 - 60 unit/L LAB CHEMISTRY METHOD 11/19/2024 10:36 AM [facility] Alkaline Phosphatase 115 42 - 121 unit/L LAB CHEMISTRY METHOD 11/19/2024 10:36 AM [facility] Total Protein 6.9 6.0 - 8.0 g/dL LAB CHEMISTRY METHOD 11/19/2024 10:36 AM [facility] Albumin 4.0 3.2 - 5.0 g/dL LAB CHEMISTRY METHOD 11/19/2024 10:36 AM [facility] Total Bilirubin 0.6 0.0 - 1.4 mg/dL LAB CHEMISTRY METHOD 11/19/2024 10:36 AM [facility] Blood Venous blood specimen / Unknown Venipuncture / Unknown 11/19/2024 8:46 AM EDT 11/19/2024 8:46 AM EDT Waylon Perez MD LAB BLOOD ORDERA BLES Final Result Performing Organization Address City/[facility]/ZIP Co de Phone Number [facility] [address] [place] [address], [place] [phone] * Hepatitis C antibody (12/30/2023 7:40 AM EST) Hepatitis C Antibody Negative Negative LAB CHEMISTRY METHOD 12/30/2023 11:03 AM EST [facility] Blood Venous blood specimen / Unknown Venipuncture / Unknown 12/30/2023 7:40 AM EST 12/30/2023 7:40 AM EST Waylon Perez MD LAB BLOOD ORDERA BLES Final Result Performing Organization Address City/[facility]/ZIP Co de Phone Number [facility] [address] [place] [address], [place] [phone] from Last 3 Months or Most Recently Relevant to Health Maintenance Insurance [address] [phone] [facility] MEDICAID - [place] Care Teams Yarn Man Relationship Specialty Start Date End Date Waylon Perez MD [address] [place] [phone] PCP - General Internal Medicine 11/29/23
== END 2024-12-16 06:06 | disposition home or self-care (01) ==
LOC: HO.LAB 06:05
PROVIDERS: PCP Family Medicine; Visit Provider Nurse Practitioner
DX: Z13.89 Encounter for screening for other disorder (principal)

== ENCOUNTER 2024-12-20 07:33 | Outpatient (REF) | payer OTHER, SELFPAY ==
--- OUTSIDE RECORDS SUMMARY | 2024-12-20 07:35 | XMS_ITS | Encounter Summary ---
Demographics Address [birth year][address] [address] Home Phone Mobile Phone Email Address Preferred Language en Marital Status Taoist Affiliation Unknown Race White Ethnic Group Unknown Author Organization [facility] [place] [address] Care Team Providers Care Stab Setter And Driller Name Role Phone Waylon Perez MD Primary Care Pr ovider Reason for Visit * Reason Onset Date Comments Medication 12/14/2024 Encounter Details Date Type Department Care Team ([facility] st Contact Info) Description 12/14/2024 Telephone Pulmonology - [place] 175 [facility] [address] [place] [address] Sabine Chacko MD [address] [place] [phone] Social History Tobacco Use Types Packs/Day Years Used Date Smoking Tobacco: Every Day Cigarettes 0.5 51.9 Started: [birth year]10[birth year]1973 Smokeless Tobacco: Never Alcohol Use [...] Description 01/13/2025 1:00 PM EST Office Visit [facility] Hematology Oncology [address] [place] [phone] Montserrat Tavarez DO [address] [place] [address] 03/09/2025 10:00 AM EST Appointment Bone Density - [address] [phone] 05/23/2025 8:30 AM EDT Office Visit Adult Medicine South - [address] [phone] Waylon Perez MD [address] [place], [place] 06/03/2025 8:15 AM EDT Office Visit Pulmonology [facility] 175 [facility] [address] [place] [address] Sabine Chacko MD [address] [place] [phone] documented as of this encounter Visit Diagnoses Not on filedocumented in this encounter Additional Health Concerns Assessment Noted Time PHQ-9 Depression Total Score: 0 04/09/19 25 6:22 PM EST documented as of this encounter Care Teams Stab Setter And Driller Relationship Specialty Start Date End Date Waylon Perez MD [address] [place] [address] PCP - General Internal Medicine 11/29/23 documented as of this encounter
--- OUTSIDE RECORDS SUMMARY | 2024-12-20 07:35 | XMS_ITS | Clinical Summary ---
Demographics Address [birth year] [address] [facility] [place] [address] Home Phone Mobile Phone Email Address Preferred Language en Marital Status Church Affiliation Unknown Race White Ethnic Group Unknown Author Organization [address] Address [address] [place] [phone] Phone Care Team Providers Care Data Base Administrator Name Role Phone Waylon Perez MD Primary [...] 62.5 mcg/actuation inhalationIndicati ons:Other emphysema (CMS/HCC V24, CMS/[facility] V28) Inhale 1 puff by [...] (11/19/2024 8:35 AM EDT): Continue follow-up regular [facility] GI. Continue Linzess as needed and senexon daily Assessment & Plan (04/16/2024 11:51 AM EST): Continue follow-up with [facility] gastro[facility]. Has an appointment June 04. Continue Linzess as needed Assessment & Plan (12/26/2023 2:38 PM EST): Continue linzess prn and [facility] follow up History of right breast [...] CT scheduled for lung cancer screening at [facility] on June 02 Assessment & Plan (12/26/2023 2:38 PM EST): Smoking cessation counseling provided. She is trying to quit on her own. Previously tried Chantix and nicotine patches. Hx of breast implants, bilateral 12/26/2023 Assessment & Plan (12/26/2023 2:38 PM EST): Reports no issues with the breast implants. Fibromyalgia 12/26/2023 Assessment & Plan (11/19/2024 8:35 AM EDT): Continue ibuprofen [id number] as needed Assessment & Plan (04/16/2024 11:51 AM EST): Continue sparing use of ibuprofen as needed for pain Assessment & Plan (12/26/2023 2:38 PM EST): Continue OTC ibuprofen PRN. She declines long-term medication management Orders: CBC and differential; Future Comprehensive metabolic panel; Future Encounters Date Type Department Care Team Description 12/14/2024 Telephone Pulmonology - [address] [place] [address] Sabine Chacko MD 12/06/2024 8:50 AM EDT - 12/06/2024 11:59 PM EDT Hospital Encounter Radiology Department - [address] [phone] Isolated tremor of head; Memory loss Discharge Disposition: Home or Self Care 12/03/2024 8:30 AM EDT Office Visit Pulmonology - [place] [address] [facility] [address] [place] [phone] Sabine Chacko MD Chronic obstructive pulmonary disease, unspecified COPD type (CMS/HCC V24, CMS/HCC V28) (Primary Dx); Smoker; Lung nodules; CARVER (dyspnea on exertion) 12/03/2024 Telephone Lung Screening Program - [place] [address] [facility] [address] [place] [phone] Sherry Leo MA 11/29/2024 Telephone Adult Medicine [address] [phone] Waylon Perez MD 11/24/2024 Results Follow-Up Adult Medicine [address] [phone] Waylon Perez MD 11/19/2024 8:00 AM EDT Office Visit Adult Medicine [address] [phone] Waylon Perez MD Annual physical exam (Primary [...] V28) Varicella Emphysema of lung (CMS/HCC V24, CMS/[facility] V28) Hypercholesteremia Depression Lung nodule Family History Medical History Relation Name Comments Pancreatic cancer Brother 1 Lung cancer Brother 2 Issac COPD Father Jhonatan Emphysema Father [place] Pneumonia Father Jhonatan tobacco use Father Jhonatan Breast cancer Mother Luna Luna Asthma Sister Ysabel Breast cancer Sister Ysabel Colon cancer Neg Hx Ovarian cancer Neg Hx Relation Name Status Comments Brother 1 Brother 2 Issac Father [place] Maternal Grandfather Maternal Grandmother Mother Luna Luna [...] for your loved ones. For example, child welfare assistant or elderly care for an older [...] Description 01/13/2025 1:00 PM EST Office Visit [facility] Hematology Oncology [address] [place] [phone] Montserrat Tavarez DO [address] [place] [address] 03/09/2025 10:00 AM EST Appointment Bone Density - [address] [phone] 05/23/2025 8:30 AM EDT Office Visit Adult Medicine South - [address] [phone] Waylon Perez MD [address] [place] [address] 06/03/2025 8:15 AM EDT Office Visit Pulmonology [facility] [address] [facility] [address] [place] [phone] Sabine Chacko MD [address] [place] [phone] Health Maintenance Due Date Last [...] this report will be provided to the [facility] Intradiem Program. -------- FINAL REPORT -------- Dictated By: Portia Messer Dictated Date: 12/06/2024 15:47 ET Assigned Physician: Portia Messer Reviewed and Electronically Signed By: Portia Messer Signed Date: 12/06/2024 16:15 ET Workstation ID: [id number] Transcribed By: Self Edit Transcribed Date: 12/06/2024 [...] this report will be provided to the [facility] FINDProgram. -------- FINAL REPORT -------- Dictated By: Portia Messer Dictated Date: 12/06/2024 15:47 ET Assigned Physician: Portia Messer Reviewed and Electronically Signed By: Portia Messer Signed Date: 12/06/2024 16:15 ET Workstation ID: [id number] Transcribed By: Self Edit Transcribed Date: 12/06/2024 15:47 ET Waylon Perez MD IMG MRI PROCEDUR ES Final Result * Thyroid stimulating hormone with reflex to free t4 and free t3 (11/19/2024 8:46 AM EDT) [facility] TSH 1.14 0.40 - 4.00 mcIU/mL LAB CHEMISTRY METHOD 11/19/2024 11:04 AM EDT [facility] Blood Venous blood specimen / Unknown Venipuncture / Unknown 11/19/2024 8:46 AM EDT 11/19/2024 8:46 AM EDT Waylon Perez MD LAB BLOOD ORDERA BLES Final Result [facility] [address] [place] [address], [place] [phone] * (ABNORMAL) Lipid panel with reflex to direct LDL (11/19/2024 8:46 AM EDT) [facility] Cholesterol 185 0 - 200 mg/dL LAB CHEMISTRY METHOD 11/19/2024 10:36 AM EDT [facility] Triglycerides 109 0 - 150 mg/dL LAB CHEMISTRY METHOD 11/19/2024 10:36 AM [facility] HDL 52 >=40 mg/dL LAB CHEMISTRY METHOD [facility] LDL Calculated 111(H) 0 - 100 mg/dL LAB CHEMISTRY METHOD 11/19/2024 10:36 AM EDT [facility] Comment:Estimated LDL Calcul ated using equation: Total cholesterol - HDL cholesterol - (Triglycerides/5) VLDL Cholesterol Kyle 21.8 mg/dL LAB CHEMISTRY METHOD 11/19/2024 10:36 AM [facility] Non HDL Chol. (LDL+VLDL) 133 <145 mg/dL LAB CHEMISTRY METHOD 11/19/2024 10:36 AM [facility] Chol/HDL Ratio 3.6 0.0 - 4.4 LAB CHEMISTRY METHOD 11/19/2024 10:36 AM [facility] Blood Venous blood specimen / Unknown Venipuncture / Unknown 11/19/2024 8:46 AM EDT 11/19/2024 8:46 AM EDT Waylon Perez MD LAB BLOOD ORDERA BLES Final Result [facility] [address] [place] [address], * (ABNORMAL) CBC auto differential (11/19/2024 8:46 AM EDT) [facility] WBC 10.5 4.8 - 10.8 K/[facility] LAB HEMETOLOGY METHOD 11/19/2024 10:22 AM EDT [facility] RBC 5.40(H) 3.80 - 4.80 M/[facility] LAB HEMETOLOGY METHOD 11/19/2024 10:22 AM [facility] Hemoglobin 16.4(H) 11.5 - 16.0 g/dL LAB HEMETOLOGY METHOD 11/19/2024 10:22 AM [facility] Hematocrit 51.4(H) 35.0 - 47.0 % LAB HEMETOLOGY METHOD 11/19/2024 10:22 AM [facility] MCV 95.9 79.0 - 98.0 FL LAB HEMETOLOGY METHOD 11/19/2024 10:22 AM [facility] MCH 30.6 27.0 - 32.0 pcg LAB HEMETOLOGY METHOD 11/19/2024 10:22 AM [facility] MCHC 31.9(L) 32.0 - 37.0 g/dL LAB HEMETOLOGY METHOD 11/19/2024 10:22 AM [facility] RDW 13.2 11.0 - 15.0 % LAB HEMETOLOGY METHOD 11/19/2024 10:22 AM [facility] Platelets 312 130 - 400 K/[facility] LAB HEMETOLOGY METHOD 11/19/2024 10:22 AM [facility] MPV 10.4 7.0 - 11.0 FL LAB HEMETOLOGY METHOD 11/19/2024 10:22 AM [facility] NRBC 0.0 <1.0 % LAB HEMETOLOGY METHOD 11/19/2024 10:22 AM [facility] NRBC Absolute 0.00 <0.10 K/mcL LAB HEMETOLOGY METHOD 11/19/2024 10:22 AM [facility] Neutrophils Relative 67.6 % LAB HEMETOLOGY METHOD 11/19/2024 10:22 AM [facility] Lymphocytes Relative 25.4 % LAB HEMETOLOGY METHOD 11/19/2024 10:22 AM [facility] Monocytes Relative 6.0 % LAB HEMETOLOGY METHOD 11/19/2024 10:22 AM [facility] Eosinophils Relative 0.3 % LAB HEMETOLOGY METHOD 11/19/2024 10:22 AM [facility] Basophils Relative 0.5 % LAB HEMETOLOGY METHOD 11/19/2024 10:22 AM [facility] Immature Granulocytes Relative 0.2 % LAB HEMETOLOGY METHOD 11/19/2024 10:22 AM [facility] Neutrophils Absolute 7.10(H) 1.50 - 7.00 K/mcL LAB HEMETOLOGY METHOD 11/19/2024 10:22 AM [facility] Lymphocytes Absolute 2.66 1.00 - 5.00 K/mcL LAB HEMETOLOGY METHOD 11/19/2024 10:22 AM [facility] Monocytes Absolute 0.63 0.20 - 1.00 K/mcL LAB HEMETOLOGY METHOD 11/19/2024 10:22 AM [facility] Eosinophils Absolute 0.03 0.00 - 0.50 K/mcL LAB HEMETOLOGY METHOD 11/19/2024 10:22 AM [facility] Basophils Absolute 0.05 0.00 - 0.20 K/mcL LAB HEMETOLOGY METHOD 11/19/2024 10:22 AM [facility] Immature Granulocytes Absolute 0.02 0.00 - 0.03 K/mcL LAB HEMETOLOGY METHOD 11/19/2024 10:22 AM [facility] Blood Venous blood specimen / Unknown Venipuncture / Unknown 11/19/2024 8:46 AM EDT 11/19/2024 8:46 AM EDT Waylon Perez MD LAB BLOOD ORDERA BLES Final Result Performing Organization Address City/[facility]/ZIP Co de Phone Number [facility] [address] [place] [address], * Hemoglobin A1c (11/19/2024 8:46 AM EDT) [facility] Hemoglobin A1C 6.1 <6.5 % LAB CHEMISTRY METHOD 11/19/2024 1:19 PM EDT [facility] Mean Bld Glu Estim. 128 mg/dL LAB CHEMISTRY METHOD 11/19/2024 1:19 PM EDT [facility] Blood Venous blood specimen / Unknown Venipuncture / Unknown 11/19/2024 8:46 AM EDT 11/19/2024 8:46 AM EDT Waylon Perez MD LAB BLOOD ORDERA BLES Final Result Performing Organization Address [facility]/ZIP Co de Phone Number [facility] [address] [place] [address], [place] [phone] * (ABNORMAL) Comprehensive metabolic panel (11/19/2024 8:46 AM EDT) [facility] Sodium 142 133 - 145 mmol/L LAB CHEMISTRY METHOD 11/19/2024 10:36 AM T [facility] Potassium 4.4 3.5 - 5.5 mmol/L LAB CHEMISTRY METHOD 11/19/2024 10:36 AM EDT [facility] Chloride 105 96 - 110 mmol/L LAB CHEMISTRY METHOD 11/19/2024 10:36 AM EDT [facility] CO2 29 21 - 32 mmol/L LAB CHEMISTRY METHOD 11/19/2024 10:36 AM EDT [facility] Anion Gap 8 3 - 11 LAB CHEMISTRY METHOD 11/19/2024 10:36 AM EDT [facility] Glucose 136(H) 70 - 100 mg/dL LAB CHEMISTRY METHOD 11/19/2024 10:36 AM [facility] BUN 16 5 - 25 mg/dL LAB CHEMISTRY METHOD 11/19/2024 10:36 AM [facility] Creatinine 1.05 0.50 - 1.10 mg/dL LAB CHEMISTRY METHOD 11/19/2024 10:36 AM [facility] eGFR 59(L) >=60 mL/min/1. 73m2 LAB CHEMISTRY METHOD 11/19/2024 10:36 AM [facility] Comment:Calculation based on the Chronic Kidney Disease Epidemiology Collaboration (CKD-EPI) equation refit without adjustment for race. BUN/Creatinine Ratio 15.2 LAB CHEMISTRY METHOD 11/19/2024 10:36 AM [facility] Calcium 10.1 8.5 - 10.5 mg/dL LAB CHEMISTRY METHOD 11/19/2024 10:36 AM [facility] AST (SGOT) 27 10 - 42 unit/L LAB CHEMISTRY METHOD 11/19/2024 10:36 AM [facility] ALT (SGPT) 34 10 - 60 unit/L LAB CHEMISTRY METHOD 11/19/2024 10:36 AM [facility] Alkaline Phosphatase 115 42 - 121 unit/L LAB CHEMISTRY METHOD 11/19/2024 10:36 AM [facility] Total Protein 6.9 6.0 - 8.0 g/dL LAB CHEMISTRY METHOD 11/19/2024 10:36 AM [facility] Albumin 4.0 3.2 - 5.0 g/dL LAB CHEMISTRY METHOD 11/19/2024 10:36 AM [facility] Total Bilirubin 0.6 0.0 - 1.4 mg/dL LAB CHEMISTRY METHOD 11/19/2024 10:36 AM [facility] Blood Venous blood specimen / Unknown Venipuncture / Unknown 11/19/2024 8:46 AM EDT 11/19/2024 8:46 AM EDT Waylon Perez MD LAB BLOOD ORDERA BLES Final Result Performing Organization Address [facility]/ZIP Co de Phone Number [facility] [address] [place] [address], [place] [phone] * Hepatitis C antibody (12/30/2023 7:40 AM EST) Hepatitis C Antibody Negative Negative LAB CHEMISTRY METHOD 12/30/2023 11:03 AM EST [facility] Blood Venous blood specimen / Unknown Venipuncture / Unknown 12/30/2023 7:40 AM EST 12/30/2023 7:40 AM EST Waylon Perez MD LAB BLOOD ORDERA BLES Final Result Performing Organization Address [facility]/ZIP Co de Phone Number [facility] [address] [place] [address], [place] [phone] from Last 3 Months or Most Recently Relevant to Health Maintenance Insurance [id number] [phone] [facility] MEDICAID - [place] Care Teams Data Base Administrator Relationship Specialty Start Date End Date Waylon Perez MD [address] [place] [phone] PCP - General Internal Medicine 11/29/23
== END 2024-12-20 07:34 | disposition home or self-care (01) ==
LOC: HO.LNP 07:33
PROVIDERS: Visit Provider Nurse Practitioner
DX: R19.5 Other fecal abnormalities (principal)
CPT/HCPCS: 87177; 87209